=== PATIENT | female | born 1995 | race Caucasian/White ===

== ENCOUNTER → 2019-12-08 | Outpatient (CLI) | payer OTHER | LOC: M LABSMTC 14:08 | PROVIDERS: ATTEND Family Medicine | DX: Z20.828 Contact with and (suspected) exposure to other viral communicable diseases (principal) | CPT/HCPCS: C9803; U0003 ==

== ENCOUNTER → 2020-05-17 | Outpatient (CLI) | payer OTHER ==
--- NOTE | 2020-05-17 14:48 | REP ---
INDICATION: EXACERBATION OF ASTHMA. COMPARISON: None TECHNIQUE: Upright PA and lateral chest. FINDINGS: There are no infiltrates or pleural effusions. There are no masses or nodules. There is no pneumothorax. The lung dimas are clear, however, appear hyperinflated. Cardiac size is normal. There are postsurgical changes in the mediastinum. There appears to be an endovascular stent, likely in the pulmonary artery. There are other postsurgical changes in the mediastinum of uncertain significance. There are Castaneda rods in the thoracic and lumbar spine. IMPRESSION: There are no acute cardiopulmonary findings. Lung dimas appear hyperinflated. Postsurgical changes in the mediastinum. Castaneda rods. <Electronically signed by Pollo Suh > 05/17/20 1154
== END ==
LOC: M WUC 14:29
PROVIDERS: ATTEND Nurse Practitioner Family
DX: J45.901 Unspecified asthma with (acute) exacerbation (principal); Z20.822 Contact with and (suspected) exposure to COVID-19
CPT/HCPCS: 71046; 82726; G0463; U0003

== ENCOUNTER → 2020-08-03 | Outpatient (CLI) | payer OTHER ==
[2020-08-03 17:10] LABS: FREE T4 1.11 NG/DL (0.76-1.46); THYROID STIMULATING HORMONE 0.842 uIU/ML (0.358-3.740)
== END ==
LOC: M WUC 10:55
PROVIDERS: ATTEND Nurse Practitioner Family
DX: D82.1 Di George's syndrome (principal)

== ENCOUNTER → 2020-11-24 | Outpatient (CLI) | payer OTHER | LOC: M LABSMTC 10:55 | PROVIDERS: ATTEND Family Medicine | DX: Z11.52 Encounter for screening for COVID-19 (principal) | CPT/HCPCS: C9803; U0003 ==

== ENCOUNTER 2020-12-27 09:25 | Emergency (ER) | payer OTHER ==
[~2020-12-27] VITALS: Ht 154.9 cm; Wt 75.8 kg
--- OUTSIDE RECORDS SUMMARY | 2020-12-27 09:33 | CCD ---
Author Author [facility] Organization [facility] Address Unknown Phone Unavailable Care Team Providers Care Handyman Name Role Phone Jorge, Joselin Unavailable PROBLEMS Type Condition ICD9-CM Code GGE31-MP Code Onset Dates Condition S tatus W/U Status Risk SNOMED Code Notes Problem Non-seasonal allergic rhinitis, unspecified trigger J30.89 Active confirmed 52211957 Problem Slow transit constipation K59.01 Active confirmed 83679010 Problem PMS (premenstrual syndrome) N94.3 Active confirmed 17953284 Problem Exacerbation of asthma, unsp ecified asthma severity, unspecified whether persistent J45.901 Active confirmed 498427927 Problem 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 20 Active confirmed 087724299 Problem Vitamin D insufficiency E55.9 Active confirmed 27977767 Problem Seasonal allergies J30.2 Active confirmed 4 29948462 Problem S/P pulmonary valve replacement Z95.2 Active confirmed [id number] ALLERGIES No Known Allergies ENCOUNTERS from 1996 to 2020-10-06 Encounter Location Date Provider Diagnosis [place] [id number] [facility] [phone] [place] [address] Sep, Joselin Patel Slow transit constipation K5 9.01 IMMUNIZATIONS Vaccine Route Administration Date Status Influenza 18 yrs & older Flublok IM Intramuscular Dec 23, 2019 Administered SOCIAL HISTORY Tobacco Use: Social History Observation Description Date Details (start date - stop date) Never Smoker Sex Assigned At : Social History Observation Description Sex Assigned At Unknown Education: Question Answer Notes Level of Education: Finished High School Audit Question Answer Notes Total Score: 0 Interpretation: Alcohol Education Language: Question Answer Notes Languages spoken: Solomon Islander Hoahaoism: Question Answer Notes Hoahaoism 08 Baptism Sexual Hx: Question Answer Notes Had sex in the last 12 months (vaginal, oral, or anal)? No Have you ever had an STD? No Drug and Alcohol Question Answer Notes Total Score: 0 Interpretation: No problems reported Alcohol Screening: Question Answer Notes Did you have a drink containing alcohol in the past year? No Points 0 Interpretation Negative BMI Care Goal Follow-Up Question Answer Notes Above Normal BMI Follow-Up Dietary management educatio n, guidance, and counseling, Dietary needs education Tobacco Use: Question Answer Notes Are you a: never smoker REASON FOR REFERRAL No Information VITAL SIGNS No information MEDICATIONS Medication SIG (Take, Route, Frequency, Duration) Notes Start Da te End Date Status Align Prebiotic-Probiotic 5-1.25 MG-GM 1 cap Orally Daily for 90 day( s) Active Xopenex HFA 45 MCG/ACT 1 puff as needed Inhalation every 4 hrs f or 30 Days May, Active Aspir-Low 81 MG 1 tablet Orally Once a day for 90 day(s) Active Omeprazole 20 MG 1 capsule 30 minutes before morning meal Orally Once a day for 8-8 weeks, then prn for 90 day(s) May, Active Clobetasol Propionate 0.05 % 1 application to hands Ex ternally Twice a day for 14 days Feb, Active Fexofenadine HCl 180 MG 1 tablet as needed Orally Once a day for 90 day(s) Active Claritin 10 MG 1 tablet Orally Once a day for 90 day(s) Not-Taking Vitamin D3 1000 UNIT 1 capsule Orally Once a day for 90 day(s) Active Pulse Oximeter - as directed prn during asthma exacerbati on for 99 days J45.20, J45.901 May, Active Lasix 20 MG 1 tablet Orally Once a day for 90 day(s) cardiology Active Levalbuterol HCl 1.25 MG/3ML 3 ml Inhalation every 8 hrs for 90 day(s) Nov, Active Sodium Chloride 0.9 % 4 ml Inhalation Twice a day for 90 day(s) May, Active predniSONE 20 MG 1 tablet Orally Once a day for 5 day(s) Active Flovent HFA 110 MCG/ACT 2 puff Inhalation Twice a day for 90 day(s) Active Flonase Allergy Relief 50 MCG/ACT 1 spray in each nost ril Nasally bid for 90 day(s) June, Active PROCEDURES No Information RESULTS No Results REASON FOR VISIT New Refill Request MEDICAL (GENERAL) HISTORY Type Description Date Medical History seasonal allergies Medical History mild asthma Medical History vitamin D def Medical History constipation Surgical History valve replacement Surgical History eye muscle surgery Surgical History scoliosis rods Hospitalization History above Goals Section No Information Health Concerns No Information MEDICAL EQUIPMENT No Information MENTAL STATUS No Information FUNCTIONAL STATUS No Information ASSESSMENTS Encounter Date Diagnosis Assessment Notes Treatment Notes Treatm ent Clinical Notes Sep, Slow transit constipation (ICD-10 - K59.01) PLAN OF TREATMENT Medication Medication Name Sig Start Date Stop Date Omeprazole 20 MG 1 capsule 30 minutes before morning meal Orally Once a day for 8-8 weeks, then prn for 90 day(s) May, predniSONE 20 MG 1 tablet Orally Once a day for 5 day(s) Flovent HFA 110 MCG/ACT 2 puff Inhalation Twice a day for 90 day (s) Clobetasol Propionate 0.05 % 1 application to hands Ex ternally Twice a day for 14 days Feb, Align Prebiotic-Probiotic 5-1.25 MG-GM 1 cap Orally Daily for 90 day(s) Insurance Providers Payer Name Payer Address Payer Phone Insured Name Patient Relati onship to Insured Coverage Start Date Coverage End Date [facility] [address] [place] [id number] OVIDIO CONTRERAS
--- OUTSIDE RECORDS SUMMARY | 2020-12-27 09:33 | CCD ---
Author Author [facility] Organization [facility] Address Unknown Phone Unavailable Care Team Providers Care Cooker Soda Name Role Phone Jorge Joselin Unavailable PROBLEMS Type Condition ICD9-CM Code WTH54-SJ Code Onset Dates Condition S tatus W/U Status Risk SNOMED Code Notes Problem Non-seasonal allergic rhinitis, unspecified trigger J30.89 Active confirmed 95772350 Problem Slow transit constipation K59.01 Active confirmed 14415647 Problem PMS (premenstrual syndrome) N94.3 Active confirmed 47519991 Problem Exacerbation of asthma, unsp ecified asthma severity, unspecified whether persistent J45.901 Active confirmed 887763668 Problem 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 20 Active confirmed 072710594 Problem Vitamin D insufficiency E55.9 Active confirmed 84294736 Problem Seasonal allergies J30.2 Active confirmed 4 63571491 Problem S/P pulmonary valve replacement Z95.2 Active confirmed 172308427028893 ALLERGIES No Known Allergies ENCOUNTERS from 1996 to 2020-10-12 Encounter Location Date Provider Diagnosis [facility] [address] [facility] [phone] [place] [address] Sep, Joselin Patel Dyspepsia R10.13 IMMUNIZATIONS Vaccine Route Administration Date Status Influenza [...] Education Language: Question Answer Notes Languages spoken: Slovenian Spiritism: Question Answer Notes Spiritism 08 Yarsanism Sexual Hx: Question Answer Notes Had sex [...] Notes Start Da te End Date Status Omeprazole 40 MG 1 capsule 30 minutes before morning meal Orally Once a day for 8-8 weeks, then prn for 90 days dosage increase May, Active Vitamin D3 1000 UNIT 1 capsule Orally Once a day for 90 day(s) Active Pulse Oximeter - as directed prn during asthma exacerbati on for 99 days J45.20, J45.901 May, Active Clobetasol Propionate 0.05 % 1 application to hands Ex ternally Twice a day for 14 days Feb, Active Aspir-Low 81 MG 1 tablet Orally Once a day for 90 day(s) Active Fexofenadine HCl 180 MG 1 tablet as needed Orally Once a day for 90 day(s) Active Sodium Chloride 0.9 % 4 ml Inhalation Twice a day for 90 day(s) May, Active Claritin 10 MG 1 tablet Orally Once a day for 90 day(s) Not-Taking Flovent HFA 110 MCG/ACT 2 puff Inhalation Twice a day for 90 day(s) Active Flonase Allergy Relief 50 MCG/ACT 1 spray in each nost ril Nasally bid for 90 day(s) June, Active Xopenex HFA 45 MCG/ACT 1 puff as needed Inhalation every 4 hrs f or 30 Days May, Active Lasix 20 MG 1 tablet Orally Once a day for 90 day(s) cardiology Active predniSONE 20 MG 1 tablet Orally Once a day for 5 day(s) Active Levalbuterol HCl 1.25 MG/3ML 3 ml Inhalation every 8 hrs for 90 day(s) Nov, Active Align Prebiotic-Probiotic 5-1.25 MG-GM 1 cap Orally Daily for 90 day( s) Active PROCEDURES No Information RESULTS No Results REASON FOR VISIT Concepcion Reflux MEDICAL (GENERAL) HISTORY Type Description Date Medical [...] Treatment Notes Treatm ent Clinical Notes Sep, Dyspepsia (ICD-10 - R10.13) PLAN OF TREATMENT Medication Medication Name Sig Start Date Stop Date Clobetasol Propionate 0.05 % 1 application to hands Ex ternally Twice a day for 14 days Feb, predniSONE 20 MG 1 tablet Orally Once a day for 5 day(s) Align Prebiotic-Probiotic 5-1.25 MG-GM 1 cap Orally Daily for 90 day(s) Flovent HFA 110 MCG/ACT 2 puff Inhalation Twice a day for 90 day (s) Omeprazole 40 MG 1 capsule 30 minutes before morning meal Orally Once a day for 8-8 weeks, then prn for 90 days May, Insurance Providers Payer Name Payer Address Payer Phone Insured Name Patient Relati onship to Insured Coverage Start Date Coverage End Date [facility] [address] [place] [id number] OVIDIO CONTRERAS
--- OUTSIDE RECORDS SUMMARY | 2020-12-27 09:33 | CCD ---
Author Author [facility] Organization [facility] Address Unknown Phone Unavailable Care Team Providers Care Refrigerated National Truck Driver Name Role Phone Jorge Joselin Unavailable PROBLEMS Type Condition ICD9-CM Code KNB34-KY Code Onset Dates Condition S tatus W/U Status Risk SNOMED Code Notes Problem Non-seasonal allergic rhinitis, unspecified trigger J30.89 Active confirmed 27252007 Problem Slow transit constipation K59.01 Active confirmed 76176791 Problem PMS (premenstrual syndrome) N94.3 Active confirmed 21679439 Problem Exacerbation of asthma, unsp ecified asthma severity, unspecified whether persistent J45.901 Active confirmed 679022958 Problem 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 20 Active confirmed 241307644 Problem Vitamin D insufficiency E55.9 Active confirmed 30342471 Problem Seasonal allergies J30.2 Active confirmed 4 08124075 Problem S/P pulmonary valve replacement Z95.2 Active confirmed 491598357111970 ALLERGIES No Known Allergies ENCOUNTERS from 1996 to 2020-10-20 Encounter Location Date Provider Diagnosis [facility] [address] [facility] [phone] [place] [address] Oct, Joselin Patel S/P pulmonary valve replacem ent Z95.2 and DiGeorge syndrome D82.1 IMMUNIZATIONS Vaccine Route Administration Date Status Influenza [...] Education Language: Question Answer Notes Languages spoken: Togolese Gnosticist: Question Answer Notes Gnosticist 08 Caodaism Sexual Hx: Question Answer Notes Had sex [...] you a: never smoker REASON FOR REFERRAL from 1996 to 2020-10-20 Reason 25yo female w/ hx valve repl acement, recent onset chest pain, office visit/EKG pending, will need to establish w/ bakery clerk in area|referral to Dr. Jones per request Diagnosis 1 S/P pulmonary valve replacem ent (Z95.2) Referral Organization [facility] Referring Provider First Name Joselin Referring Provider Last Name Jorge Referring Provider Specialty Family Medicine Referred Provider Specialty Cardiology Referral Priority Routine VITAL SIGNS No information MEDICATIONS Medication SIG [...] for 99 days J45.20, J45.901 May, Active Fexofenadine HCl 180 MG 1 tablet as needed Orally Once a day for 90 day(s) Active Clobetasol Propionate 0.05 % 1 application to hands Ex ternally Twice a day for 14 days Feb, Active Aspir-Low 81 MG 1 tablet Orally Once a day for 90 day(s) Active Claritin 10 MG 1 tablet Orally Once a day for 90 day(s) Not-Taking Lasix 20 MG 1 tablet Orally Once a day for 90 day(s) cardiology Active Flovent HFA 110 MCG/ACT 2 puff Inhalation Twice a day for 90 day(s) Active Flonase Allergy Relief 50 MCG/ACT 1 spray in each nost ril Nasally bid for 90 day(s) June, Active Xopenex HFA 45 MCG/ACT 1 puff as needed Inhalation every 4 hrs f or 30 Days May, Active Sodium Chloride 0.9 % 4 ml [...] Information RESULTS No Results REASON FOR VISIT Referral MEDICAL (GENERAL) HISTORY Type Description Date Medical [...] Notes Treatment Notes Treatm ent Clinical Notes Oct, S/P pulmonary valve replacement (ICD-10 - Z95.2) Oct, DiGeorge syndrome (ICD-10 - D82.1) PLAN OF TREATMENT Medication Medication Name Sig Start Date Stop Date Aspir-Low 81 MG 1 tablet Orally Once a day for 90 day(s) predniSONE 20 MG 1 tablet Orally Once a day for 5 day(s) Flovent HFA 110 MCG/ACT 2 puff Inhalation Twice a day for 90 day (s) Clobetasol Propionate 0.05 % 1 application to hands Ex ternally Twice a day for 14 days Feb, Align Prebiotic-Probiotic 5-1.25 MG-GM 1 cap Orally Daily for 90 day(s) Lasix 20 MG 1 tablet Orally Once a day for 90 day(s) Omeprazole 40 MG 1 capsule 30 minutes before morning meal Orally Once a day for 8-8 weeks, then prn for 90 days May, Referrals Referral Date Details 25yo female w/ hx valve repl acement, recent onset chest pain, office visit/EKG pending, will need to establish w/ bakery clerk in area|referral to Dr. Jones per request Next Appt Details Provider Name:Joselin Patel, 02:00:00 PM, [address] [facility], , [place], [address], Insurance Providers Payer Name Payer Address Payer Phone Insured Name Patient Relati onship to Insured Coverage Start Date Coverage End Date [facility] [address] [facility] [id number] OVIDIO CONTRERAS"
--- OUTSIDE RECORDS SUMMARY | 2020-12-27 09:33 | CCD ---
Author Author [facility] Organization [facility] Address Unknown Phone Unavailable Care Team Providers Care Casualty Insurance Claim Adjuster Name Role Phone Jorge Joselin Unavailable PROBLEMS Type Condition ICD9-CM Code LHV19-ZB Code Onset Dates Condition S tatus W/U Status Risk SNOMED Code Notes Problem Non-seasonal allergic rhinitis, unspecified trigger J30.89 Active confirmed 91521902 Problem Slow transit constipation K59.01 Active confirmed 18608223 Problem PMS (premenstrual syndrome) N94.3 Active confirmed 39258568 Problem Exacerbation of asthma, unsp ecified asthma severity, unspecified whether persistent J45.901 Active confirmed 103435655 Problem 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 20 Active confirmed 715310260 Problem Vitamin D insufficiency E55.9 Active confirmed 98053265 Problem Seasonal allergies J30.2 Active confirmed 4 03378884 Problem S/P pulmonary valve replacement Z95.2 Active confirmed 592306671364325 ALLERGIES No Known Allergies ENCOUNTERS from 1996 to 2020-10-01 Encounter Location Date Provider Diagnosis [facility] [address] [facility] [phone] [place] [address] Sep, Joselin Patel IMMUNIZATIONS Vaccine Route Administration Date Status Influenza [...] Education Language: Question Answer Notes Languages spoken: New Zealander Temple: Question Answer Notes Temple 08 Muslim Sexual Hx: Question Answer Notes Had sex [...] Notes Start Da te End Date Status Flonase Allergy Relief 50 MCG/ACT 1 spray [...] Once a day for 90 day(s) Active Align Prebiotic-Probiotic 5-1.25 MG-GM 1 cap Orally Daily for 90 day( s) Active Vitamin D3 1000 UNIT 1 capsule Orally Once a day for 90 day(s) Active Pulse Oximeter - as directed prn during asthma exacerbati on for 99 days J45.20, J45.901 May, Active Sodium Chloride 0.9 % 4 ml Inhalation Twice a day for 90 day(s) May, Active Levalbuterol HCl 1.25 MG/3ML 3 ml Inhalation every 8 hrs for 90 day(s) Nov, Active Claritin 10 MG 1 tablet Orally Once a day for 90 day(s) Not-Taking predniSONE 20 MG 1 tablet Orally Once a day for 5 day(s) Active Flovent HFA 110 MCG/ACT 2 puff Inhalation Twice a day for 90 day(s) Active Lasix 20 MG 1 tablet Orally Once a day for 90 day(s) cardiology Active PROCEDURES No Information RESULTS No Results REASON FOR VISIT Update Demographics - Personal Info MEDICAL (GENERAL) HISTORY Type Description Date Medical History seasonal allergies Medical History mild asthma Medical History vitamin D def Medical History constipation Surgical History valve replacement Surgical History eye muscle surgery Surgical History scoliosis rods Hospitalization History above Goals Section No Information Health Concerns No Information MEDICAL EQUIPMENT No Information MENTAL STATUS No Information FUNCTIONAL STATUS No Information ASSESSMENTS No Information PLAN OF TREATMENT Medication Medication Name Sig [...] Twice a day for 14 days Feb, Insurance Providers Payer Name Payer Address Payer Phone Insured Name Patient Relati onship to Insured Coverage Start Date Coverage End Date [facility] [address] [facility] [id number] OVIDIO CONTRERAS
--- OUTSIDE RECORDS SUMMARY | 2020-12-27 09:33 | CCD ---
Author Author [facility] Organization [facility] Address Unknown Phone Unavailable Care Team Providers Care Orthopedic Podiatrist Name Role Phone Jorge Joselin Unavailable PROBLEMS Type Condition ICD9-CM Code WXA83-TE Code Onset Dates Condition S tatus W/U Status Risk SNOMED Code Notes Problem Non-seasonal allergic rhinitis, unspecified trigger J30.89 Active confirmed 36670056 Problem Slow transit constipation K59.01 Active confirmed 66271878 Problem PMS (premenstrual syndrome) N94.3 Active confirmed 48263852 Problem Exacerbation of asthma, unsp ecified asthma severity, unspecified whether persistent J45.901 Active confirmed 660951261 Problem 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 20 Active confirmed 967279849 Problem Vitamin D insufficiency E55.9 Active confirmed 88558218 Problem Seasonal allergies J30.2 Active confirmed 4 27076626 Problem S/P pulmonary valve replacement Z95.2 Active confirmed 465253811223043 ALLERGIES No Known Allergies ENCOUNTERS from 1996 to 2020-10-12 Encounter Location Date Provider Diagnosis [facility] [address] [facility] [phone] [place] [address] Sep, Joselin Patel IMMUNIZATIONS Vaccine Route Administration [...] Education Language: Question Answer Notes Languages spoken: Djiboutian Hoahaoism: Question Answer Notes Hoahaoism 08 Evangelical Sexual Hx: Question Answer Notes Had sex [...] Information RESULTS No Results REASON FOR VISIT Re:RE:Concepcion Reflux MEDICAL (GENERAL) HISTORY Type Description Date [...] Insured Coverage Start Date Coverage End Date [facility] [address] [place] [id number] OVIDIO CONTRERAS
--- OUTSIDE RECORDS SUMMARY | 2020-12-27 09:33 | CCD ---
Author Author [facility] Organization [facility] Address Unknown Phone Unavailable Care Team Providers Care Studio Model Name Role Phone Jorge Joselin Unavailable PROBLEMS Type Condition ICD9-CM Code DBT64-WC Code Onset Dates Condition S tatus W/U Status Risk SNOMED Code Notes Problem Non-seasonal allergic rhinitis, unspecified trigger J30.89 Active confirmed 16406952 Problem Slow transit constipation K59.01 Active confirmed 33346241 Problem PMS (premenstrual syndrome) N94.3 Active confirmed 24029447 Problem Exacerbation of asthma, unsp ecified asthma severity, unspecified whether persistent J45.901 Active confirmed 508420542 Problem 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 20 Active confirmed 715935866 Problem Vitamin D insufficiency E55.9 Active confirmed 04968412 Problem Seasonal allergies J30.2 Active confirmed 4 09686042 Problem S/P pulmonary valve replacement Z95.2 Active confirmed 268611541979120 ALLERGIES No Known Allergies ENCOUNTERS from 1996 to 2020-10-20 Encounter Location Date Provider Diagnosis [facility] [address] [facility] [phone] [place] [address] Oct, Joselin Patel IMMUNIZATIONS Vaccine Route Administration Date [...] Education Language: Question Answer Notes Languages spoken: Mauritanian Religious: Question Answer Notes Religious 08 Buddhist Sexual Hx: Question Answer Notes Had sex [...] Information RESULTS No Results REASON FOR VISIT Refferal * MEDICAL (GENERAL) HISTORY Type Description Date Medical [...] weeks, then prn for 90 days May, Next Appt Details Provider Name:Joselinlesli Patel, 02:00:00 PM, [address] [facility], , [place], [address], Insurance Providers Payer Name Payer Address Payer Phone Insured Name Patient Relati onship to Insured Coverage Start Date Coverage End Date [facility] INSURANCE [address] [place] [id number] OVIDIO CONTRERAS
--- OUTSIDE RECORDS SUMMARY | 2020-12-27 09:33 | CCD ---
Author Author [facility] Address Unknown Phone Unavailable Support Name Relationship Address Phone DISABLED Next Of Kin Unknown Unavailable SALAZAR CONTRERAS Next Of Kin [address] [place] [address] [address] [place] [address] CESAR CONTRERAS [address] [place] [address] 1 [address] [place] [address] Unavailable Re-disclosure Warning The records that you are about to access may contain information from federally-assisted alcohol or drug abuse programs. If such information is present, then the following federally mandated warning applies: This information has been disclosed to you from records protected by federal confidentiality rules (42 CFR part 2). The federal rules prohibit you from making any further disclosure of this information unless further disclosure is expressly permitted by the written consent of the person to whom it pertains or as otherwise permitted by 42 CFR part 2. A general authorization for the release of medical or other information is NOT sufficient for this purpose. The Federal rules restrict any use of the information to criminally investigate or prosecute any alcohol or drug abuse patient.The records that you are about to access may contain highly sensitive health information, the redisclosure of which is protected by Article 27-F of the [facility] Public Health law. If you continue you may have access to information: Regarding HIV / AIDS; Provided by facilities licensed or operated by the [facility] Office of Mental Health; or Provided by the [facility] Office for People With Developmental Disabilities. If such information is present, then the following [facility] mandated warning applies: This information has been disclosed to you from confidential records which are protected by state law. State law prohibits you from making any further disclosure of this information without the specific written consent of the person to whom it pertains, or as otherwise permitted by law. Any unauthorized further disclosure in violation of state law may result in a fine or group home sentence or both. A general authorization for the release of medical or other information is NOT sufficient authorization for further disc losure. Encounters Encounter Providers Location Date Indications Data Source(s ) Unknown [address] [facility] [address] 11/12/2020 12:00:00 AM EDT eCW1 ([facility]) [place] [address] [facility] [address] 11/04/2020 12:00:00 AM EDT eCW1 ([facility]) Unknown [address] [facility] [address] 10/19/2020 12:00:00 AM EDT eCW1 ([facility]) Unknown [address] [facility] [address] 10/14/2020 12:00:00 AM EDT eCW1 ([facility]) [place] [address] [facility] [address] 10/13/2020 12:00:00 AM EDT eCW1 ([facility]) Unknown [address] [facility] [address] 10/13/2020 12:00:00 AM EDT eCW1 ([facility]) [place] [address] [facility] [address] 10/12/2020 12:00:00 AM EDT eCW1 ([facility]) Unknown [address] [facility] [address] 10/08/2020 12:00:00 AM EDT eCW1 ([facility]) Unknown [address] [facility] [address] 10/06/2020 12:00:00 AM EDT eCW1 ([facility]) [place] [address] [facility] [address] 10/01/2020 12:00:00 AM EDT eCW1 ([facility]) Unknown [address] [facility] [address] 09/22/2020 12:00:00 AM EDT eCW1 ([facility]) Unknown [address] [facility] [address] 09/20/2020 12:00:00 AM EDT eCW1 ([facility]) Unknown [address] [facility] [address] 08/02/2020 12:00:00 AM EDT eCW1 ([facility]) Unknown [address] [facility] [address] 07/02/2020 12:00:00 AM EDT eCW1 ([facility]) Outpatient [address] [facility] [address] 05/21/2020 12:00:00 AM EDT eCW1 ([facility]) Unknown [address] [facility] [address] 05/19/2020 12:00:00 AM EDT eCW1 ([facility]) Unknown [address] [facility] [address] 05/18/2020 12:00:00 AM EDT eCW1 ([facility]) Unknown [address] [facility] [address] 05/18/2020 12:00:00 AM EDT eCW1 ([facility]) Unknown [address] [facility] [address] 05/18/2020 12:00:00 AM EDT eCW1 ([facility]) Unknown [address] [facility] [address] 05/17/2020 12:00:00 AM EDT eCW1 ([facility]) Outpatient [address] [facility] [address] 05/17/2020 12:00:00 AM EDT eCW1 ([facility]) Unknown [address] [facility] [address] 05/17/2020 12:00:00 AM EDT eCW1 ([facility]) Unknown [address] [facility] [address] 05/13/2020 12:00:00 AM EDT [facility] [place] [address] [facility] [address] 05/11/2020 12:00:00 AM EDT [facility] [place] [address] [facility] [address] 02/25/2020 12:00:00 AM EST [facility] [place] [address] [facility] [address] 01/23/2020 12:00:00 AM EST eCW1 ([facility]) Unknown [address] [facility] [address] 01/20/2020 12:00:00 AM EST eCW1 ([facility]) Unknown [address] [facility] [address] 01/06/2020 12:00:00 AM EST eCW1 ([facility]) Unknown [address] [facility] [address] 01/01/2020 12:00:00 AM EST eCW1 ([facility]) Outpatient [address] [facility] [address] 12/23/2019 12:00:00 AM EST eCW1 ([facility]) Unknown [address] [facility] [address] 12/02/2019 12:00:00 AM EDT eCW1 ([facility]) Immunizations Vaccine Date Status Description Data Source(s) influenza, recombinant, quadrIvalent,injectable, prese rvative free 12/23/2019 10:17:00 AM EST completed eCW1 ([facility]) influenza, recombinant, quadrIvalent,injectable, prese rvative free 12/23/2019 10:17:00 AM EST completed eCW1 ([facility]) influenza, recombinant, quadrIvalent,injectable, prese rvative free 12/23/2019 10:17:00 AM EST completed eCW1 ([facility]) influenza, recombinant, quadrIvalent,injectable, prese rvative free 12/23/2019 10:17:00 AM EST completed eCW1 ([facility]) influenza, recombinant, quadrIvalent,injectable, prese rvative free 12/23/2019 10:17:00 AM EST completed eCW1 ([facility]) influenza, recombinant, quadrIvalent,injectable, prese rvative free 12/23/2019 10:17:00 AM EST completed eCW1 ([facility]) influenza, recombinant, quadrIvalent,injectable, prese rvative free 12/23/2019 10:17:00 AM EST completed eCW1 ([facility]) influenza, recombinant, quadrIvalent,injectable, prese rvative free 12/23/2019 10:17:00 AM EST completed eCW1 ([facility]) influenza, recombinant, quadrIvalent,injectable, prese rvative free 12/23/2019 10:17:00 AM EST completed eCW1 ([facility]) influenza, recombinant, quadrIvalent,injectable, prese rvative free 12/23/2019 10:17:00 AM EST completed eCW1 ([facility]) influenza, recombinant, quadrIvalent,injectable, prese rvative free 12/23/2019 10:17:00 AM EST completed eCW1 ([facility]) influenza, recombinant, quadrIvalent,injectable, prese rvative free 12/23/2019 10:17:00 AM EST completed eCW1 ([facility]) influenza, recombinant, quadrIvalent,injectable, prese rvative free 12/23/2019 10:17:00 AM EST completed eCW1 ([facility]) influenza, recombinant, quadrIvalent,injectable, prese rvative free 12/23/2019 10:17:00 AM EST completed eCW1 ([facility]) influenza, recombinant, quadrIvalent,injectable, prese rvative free 12/23/2019 10:17:00 AM EST completed eCW1 ([facility]) influenza, recombinant, quadrIvalent,injectable, prese rvative free 12/23/2019 10:17:00 AM EST completed eCW1 ([facility]) influenza, recombinant, quadrIvalent,injectable, prese rvative free 12/23/2019 10:17:00 AM EST completed eCW1 ([facility]) influenza, recombinant, quadrIvalent,injectable, prese rvative free 12/23/2019 10:17:00 AM EST completed eCW1 ([facility]) influenza, recombinant, quadrIvalent,injectable, prese rvative free 12/23/2019 10:17:00 AM EST completed eCW1 ([facility]) influenza, recombinant, quadrIvalent,injectable, prese rvative free 12/23/2019 10:17:00 AM EST completed eCW1 ([facility]) influenza, recombinant, quadrIvalent,injectable, prese rvative free 12/23/2019 10:17:00 AM EST completed eCW1 ([facility]) influenza, recombinant, quadrIvalent,injectable, prese rvative free 12/23/2019 10:17:00 AM EST completed eCW1 ([facility]) influenza, recombinant, quadrIvalent,injectable, prese rvative free 12/23/2019 10:17:00 AM EST completed eCW1 ([facility]) influenza, recombinant, quadrIvalent,injectable, prese rvative free 12/23/2019 10:17:00 AM EST completed eCW1 ([facility]) influenza, recombinant, quadrIvalent,injectable, prese rvative free 12/23/2019 10:17:00 AM EST completed eCW1 ([facility]) influenza, recombinant, quadrIvalent,injectable, prese rvative free 12/23/2019 10:17:00 AM EST completed eCW1 ([facility]) influenza, recombinant, quadrIvalent,injectable, prese rvative free 12/23/2019 10:17:00 AM EST completed eCW1 ([facility]) influenza, recombinant, quadrIvalent,injectable, prese rvative free 12/23/2019 10:17:00 AM EST completed eCW1 ([facility]) influenza, recombinant, quadrIvalent,injectable, prese rvative free 12/23/2019 10:17:00 AM EST completed eCW1 ([facility]) influenza, recombinant, quadrIvalent,injectable, prese rvative free 12/23/2019 10:17:00 AM EST completed eCW1 ([facility]) Medications Medication Brand Name Start Date Product Form Dose Route Admi nistrative Instructions Pharmacy Instructions Status Indications Reaction Description Data Source(s) Omeprazole 40 MG Delayed Release Oral Capsule Omeprazole 40 MG 05/21/2020 12:00:00 AM EDT active Omeprazo le 40 MG eCW1 ([facility]) Omeprazole 20 MG Delayed Release Oral Capsule Omeprazole 20 MG 05/21/2020 12:00:00 AM EDT active Omeprazo le 20 MG eCW1 ([facility]) Omeprazole 40 MG Delayed Release Oral Capsule Omeprazole 40 MG 05/21/2020 12:00:00 AM EDT active Omeprazo le 40 MG eCW1 ([facility]) Omeprazole 40 MG Delayed Release Oral Capsule Omeprazole 40 MG 05/21/2020 12:00:00 AM EDT active Omeprazo le 40 MG eCW1 ([facility]) Omeprazole 40 MG Delayed Release Oral Capsule Omeprazole 40 MG 05/21/2020 12:00:00 AM EDT active Omeprazo le 40 MG eCW1 ([facility]) Omeprazole 40 MG Delayed Release Oral Capsule Omeprazole 40 MG 05/21/2020 12:00:00 AM EDT active Omeprazo le 40 MG eCW1 ([facility]) Omeprazole 40 MG Delayed Release Oral Capsule Omeprazole 40 MG 05/21/2020 12:00:00 AM EDT active Omeprazo le 40 MG eCW1 ([facility]) Omeprazole 20 MG Delayed Release Oral Capsule Omeprazole 20 MG 05/21/2020 12:00:00 AM EDT active Omeprazo le 20 MG eCW1 ([facility]) Omeprazole 20 MG Delayed Release Oral Capsule Omeprazole 20 MG 05/21/2020 12:00:00 AM EDT active Omeprazo le 20 MG eCW1 ([facility]) Omeprazole 20 MG Delayed Release Oral Capsule Omeprazole 20 MG 05/21/2020 12:00:00 AM EDT active Omeprazo le 20 MG eCW1 ([facility]) Omeprazole 40 MG Delayed Release Oral Capsule Omeprazole 40 MG 05/21/2020 12:00:00 AM EDT active Omeprazo le 40 MG eCW1 ([facility]) Omeprazole 20 MG Delayed Release Oral Capsule Omeprazole 20 MG 05/21/2020 12:00:00 AM EDT active Omeprazo le 20 MG eCW1 ([facility]) Omeprazole 20 MG Delayed Release Oral Capsule Omeprazole 20 MG 05/21/2020 12:00:00 AM EDT active Omeprazo le 20 MG eCW1 ([facility]) Omeprazole 40 MG Delayed Release Oral Capsule Omeprazole 40 MG 05/21/2020 12:00:00 AM EDT active Omeprazo le 40 MG eCW1 ([facility]) Omeprazole 20 MG Delayed Release Oral Capsule Omeprazole 20 MG 05/21/2020 12:00:00 AM EDT active Omeprazo le 20 MG eCW1 ([facility]) Pulse Oximeter - Pulse Oximeter - 05/20/2020 12:00:00 AM EDT active Pulse Oximeter - eCW1 ([facility]) Pulse Oximeter - Pulse Oximeter - 05/20/2020 12:00:00 AM EDT active Pulse Oximeter - eCW1 ([facility]) Pulse Oximeter - Pulse Oximeter - 05/20/2020 12:00:00 AM EDT active Pulse Oximeter - eCW1 ([facility]) Pulse Oximeter - Pulse Oximeter - 05/20/2020 12:00:00 AM EDT active Pulse Oximeter - eCW1 ([facility]) Pulse Oximeter - Pulse Oximeter - 05/20/2020 12:00:00 AM EDT active Pulse Oximeter - eCW1 ([facility]) Pulse Oximeter - Pulse Oximeter - 05/20/2020 12:00:00 AM EDT active Pulse Oximeter - eCW1 ([facility]) Pulse Oximeter - Pulse Oximeter - 05/20/2020 12:00:00 AM EDT active Pulse Oximeter - eCW1 ([facility]) Pulse Oximeter - Pulse Oximeter - 05/20/2020 12:00:00 AM EDT active Pulse Oximeter - eCW1 ([facility]) Pulse Oximeter - Pulse Oximeter - 05/20/2020 12:00:00 AM EDT active Pulse Oximeter - eCW1 ([facility]) Pulse Oximeter - Pulse Oximeter - 05/20/2020 12:00:00 AM EDT active Pulse Oximeter - eCW1 ([facility]) Pulse Oximeter - Pulse Oximeter - 05/20/2020 12:00:00 AM EDT active Pulse Oximeter - eCW1 ([facility]) Pulse Oximeter - Pulse Oximeter - 05/20/2020 12:00:00 AM EDT active Pulse Oximeter - eCW1 ([facility]) Pulse Oximeter - Pulse Oximeter - 05/20/2020 12:00:00 AM EDT active Pulse Oximeter - eCW1 ([facility]) Pulse Oximeter - Pulse Oximeter - 05/20/2020 12:00:00 AM EDT active Pulse Oximeter - eCW1 ([facility]) Pulse Oximeter - Pulse Oximeter - 05/20/2020 12:00:00 AM EDT active Pulse Oximeter - eCW1 ([facility]) Pulse Oximeter - Pulse Oximeter - 05/20/2020 12:00:00 AM EDT active Pulse Oximeter - eCW1 ([facility]) Pulse Oximeter - Pulse Oximeter - 05/20/2020 12:00:00 AM EDT active Pulse Oximeter - eCW1 ([facility]) Sodium Chloride 0.154 MEQ/ML Inhalant Solution Sodium Chloride 0.9 % Sodium Chloride 0.9 % 05/18/2020 12:00:00 AM EDT 4.0 {ml} a ctive Sodium Chloride 0.9 % eCW1 ([facility]) Sodium Chloride 0.154 MEQ/ML Inhalant Solution Sodium Chloride 0.9 % Sodium Chloride 0.9 % 05/18/2020 12:00:00 AM EDT 4.0 {ml} a ctive Sodium Chloride 0.9 % eCW1 ([facility]) 200 ACTUAT Levalbuterol 0.045 MG/ACTUAT Metered Dose Inhaler [Xopenex] Xopenex HFA 45 MCG/ACT Xopenex HFA 45 MCG/ACT 05/18/2020 12:00:00 AM EDT 1.0 {puff_as_needed} active Xopenex HFA 45 MCG/ACT eCW1 ([facility]) 200 ACTUAT Levalbuterol 0.045 MG/ACTUAT Metered Dose Inhaler [Xopenex] Xopenex HFA 45 MCG/ACT Xopenex HFA 45 MCG/ACT 05/18/2020 12:00:00 AM EDT 1.0 {puff_as_needed} active Xopenex HFA 45 MCG/ACT eCW1 ([facility]) 200 ACTUAT Levalbuterol 0.045 MG/ACTUAT Metered Dose Inhaler [Xopenex] Xopenex HFA 45 MCG/ACT Xopenex HFA 45 MCG/ACT 05/18/2020 12:00:00 AM EDT 1.0 {puff_as_needed} active Xopenex HFA 45 MCG/ACT eCW1 ([facility]) 200 ACTUAT Levalbuterol 0.045 MG/ACTUAT Metered Dose Inhaler [Xopenex] Xopenex HFA 45 MCG/ACT Xopenex HFA 45 MCG/ACT 05/18/2020 12:00:00 AM EDT 1.0 {puff_as_needed} active Xopenex HFA 45 MCG/ACT eCW1 ([facility]) 200 ACTUAT Levalbuterol 0.045 MG/ACTUAT Metered Dose Inhaler [Xopenex] Xopenex HFA 45 MCG/ACT Xopenex HFA 45 MCG/ACT 05/18/2020 12:00:00 AM EDT 1.0 {puff_as_needed} active Xopenex HFA 45 MCG/ACT eCW1 ([facility]) Sodium Chloride 0.154 MEQ/ML Inhalant Solution Sodium Chloride 0.9 % Sodium Chloride 0.9 % 05/18/2020 12:00:00 AM EDT 4.0 {ml} a ctive Sodium Chloride 0.9 % eCW1 ([facility]) Sodium Chloride 0.154 MEQ/ML Inhalant Solution Sodium Chloride 0.9 % Sodium Chloride 0.9 % 05/18/2020 12:00:00 AM EDT 4.0 {ml} a ctive Sodium Chloride 0.9 % eCW1 ([facility]) Sodium Chloride 0.154 MEQ/ML Inhalant Solution Sodium Chloride 0.9 % Sodium Chloride 0.9 % 05/18/2020 12:00:00 AM EDT 4.0 {ml} a ctive Sodium Chloride 0.9 % eCW1 ([facility]) Sodium Chloride 0.154 MEQ/ML Inhalant Solution Sodium Chloride 0.9 % Sodium Chloride 0.9 % 05/18/2020 12:00:00 AM EDT 4.0 {ml} a ctive Sodium Chloride 0.9 % eCW1 ([facility]) Sodium Chloride 0.154 MEQ/ML Inhalant Solution Sodium Chloride 0.9 % Sodium Chloride 0.9 % 05/18/2020 12:00:00 AM EDT 4.0 {ml} a ctive Sodium Chloride 0.9 % eCW1 ([facility]) 200 ACTUAT Levalbuterol 0.045 MG/ACTUAT Metered Dose Inhaler [Xopenex] Xopenex HFA 45 MCG/ACT Xopenex HFA 45 MCG/ACT 05/18/2020 12:00:00 AM EDT 1.0 {puff_as_needed} active Xopenex HFA 45 MCG/ACT eCW1 ([facility]) Sodium Chloride 0.154 MEQ/ML Inhalant Solution Sodium Chloride 0.9 % Sodium Chloride 0.9 % 05/18/2020 12:00:00 AM EDT 4.0 {ml} a ctive Sodium Chloride 0.9 % eCW1 ([facility]) Sodium Chloride 0.154 MEQ/ML Inhalant Solution Sodium Chloride 0.9 % Sodium Chloride 0.9 % 05/18/2020 12:00:00 AM EDT 4.0 {ml} a ctive Sodium Chloride 0.9 % eCW1 ([facility]) Sodium Chloride 0.154 MEQ/ML Inhalant Solution Sodium Chloride 0.9 % Sodium Chloride 0.9 % 05/18/2020 12:00:00 AM EDT 4.0 {ml} a ctive Sodium Chloride 0.9 % eCW1 ([facility]) Sodium Chloride 0.154 MEQ/ML Inhalant Solution Sodium Chloride 0.9 % Sodium Chloride 0.9 % 05/18/2020 12:00:00 AM EDT 4.0 {ml} a ctive Sodium Chloride 0.9 % eCW1 ([facility]) 200 ACTUAT Levalbuterol 0.045 MG/ACTUAT Metered Dose Inhaler [Xopenex] Xopenex HFA 45 MCG/ACT Xopenex HFA 45 MCG/ACT 05/18/2020 12:00:00 AM EDT 1.0 {puff_as_needed} active Xopenex HFA 45 MCG/ACT eCW1 ([facility]) 200 ACTUAT Levalbuterol 0.045 MG/ACTUAT Metered Dose Inhaler [Xopenex] Xopenex HFA 45 MCG/ACT Xopenex HFA 45 MCG/ACT 05/18/2020 12:00:00 AM EDT 1.0 {puff_as_needed} active Xopenex HFA 45 MCG/ACT eCW1 ([facility]) 200 ACTUAT Levalbuterol 0.045 MG/ACTUAT Metered Dose Inhaler [Xopenex] Xopenex HFA 45 MCG/ACT Xopenex HFA 45 MCG/ACT 05/18/2020 12:00:00 AM EDT 1.0 {puff_as_needed} active Xopenex HFA 45 MCG/ACT eCW1 ([facility]) Sodium Chloride 0.154 MEQ/ML Inhalant Solution Sodium Chloride 0.9 % Sodium Chloride 0.9 % 05/18/2020 12:00:00 AM EDT 4.0 {ml} a ctive Sodium Chloride 0.9 % eCW1 ([facility]) Sodium Chloride 0.154 MEQ/ML Inhalant Solution Sodium Chloride 0.9 % Sodium Chloride 0.9 % 05/18/2020 12:00:00 AM EDT 4.0 {ml} a ctive Sodium Chloride 0.9 % eCW1 ([facility]) 200 ACTUAT Levalbuterol 0.045 MG/ACTUAT Metered Dose Inhaler [Xopenex] Xopenex HFA 45 MCG/ACT Xopenex HFA 45 MCG/ACT 05/18/2020 12:00:00 AM EDT 1.0 {puff_as_needed} active Xopenex HFA 45 MCG/ACT eCW1 ([facility]) 200 ACTUAT Levalbuterol 0.045 MG/ACTUAT Metered Dose Inhaler [Xopenex] Xopenex HFA 45 MCG/ACT Xopenex HFA 45 MCG/ACT 05/18/2020 12:00:00 AM EDT 1.0 {puff_as_needed} active Xopenex HFA 45 MCG/ACT eCW1 ([facility]) 200 ACTUAT Levalbuterol 0.045 MG/ACTUAT Metered Dose Inhaler [Xopenex] Xopenex HFA 45 MCG/ACT Xopenex HFA 45 MCG/ACT 05/18/2020 12:00:00 AM EDT 1.0 {puff_as_needed} active Xopenex HFA 45 MCG/ACT eCW1 ([facility]) 200 ACTUAT Levalbuterol 0.045 MG/ACTUAT Metered Dose Inhaler [Xopenex] Xopenex HFA 45 MCG/ACT Xopenex HFA 45 MCG/ACT 05/18/2020 12:00:00 AM EDT 1.0 {puff_as_needed} active Xopenex HFA 45 MCG/ACT eCW1 ([facility]) Sodium Chloride 0.154 MEQ/ML Inhalant Solution Sodium Chloride 0.9 % Sodium Chloride 0.9 % 05/18/2020 12:00:00 AM EDT 4.0 {ml} a ctive Sodium Chloride 0.9 % eCW1 ([facility]) Sodium Chloride 0.154 MEQ/ML Inhalant Solution Sodium Chloride 0.9 % Sodium Chloride 0.9 % 05/18/2020 12:00:00 AM EDT 4.0 {ml} a ctive Sodium Chloride 0.9 % eCW1 ([facility]) Sodium Chloride 0.154 MEQ/ML Inhalant Solution Sodium Chloride 0.9 % Sodium Chloride 0.9 % 05/18/2020 12:00:00 AM EDT 4.0 {ml} a ctive Sodium Chloride 0.9 % eCW1 ([facility]) Sodium Chloride 0.154 MEQ/ML Inhalant Solution Sodium Chloride 0.9 % Sodium Chloride 0.9 % 05/18/2020 12:00:00 AM EDT 4.0 {ml} a ctive Sodium Chloride 0.9 % eCW1 ([facility]) 200 ACTUAT Levalbuterol 0.045 MG/ACTUAT Metered Dose Inhaler [Xopenex] Xopenex HFA 45 MCG/ACT Xopenex HFA 45 MCG/ACT 05/18/2020 12:00:00 AM EDT 1.0 {puff_as_needed} active Xopenex HFA 45 MCG/ACT eCW1 ([facility]) 200 ACTUAT Levalbuterol 0.045 MG/ACTUAT Metered Dose Inhaler [Xopenex] Xopenex HFA 45 MCG/ACT Xopenex HFA 45 MCG/ACT 05/18/2020 12:00:00 AM EDT 1.0 {puff_as_needed} active Xopenex HFA 45 MCG/ACT eCW1 ([facility]) Sodium Chloride 0.154 MEQ/ML Inhalant Solution Sodium Chloride 0.9 % Sodium Chloride 0.9 % 05/18/2020 12:00:00 AM EDT 4.0 {ml} a ctive Sodium Chloride 0.9 % eCW1 ([facility]) Sodium Chloride 0.154 MEQ/ML Inhalant Solution Sodium Chloride 0.9 % Sodium Chloride 0.9 % 05/18/2020 12:00:00 AM EDT 4.0 {ml} a ctive Sodium Chloride 0.9 % eCW1 ([facility]) 200 ACTUAT Levalbuterol 0.045 MG/ACTUAT Metered Dose Inhaler [Xopenex] Xopenex HFA 45 MCG/ACT Xopenex HFA 45 MCG/ACT 05/18/2020 12:00:00 AM EDT 1.0 {puff_as_needed} active Xopenex HFA 45 MCG/ACT eCW1 ([facility]) 200 ACTUAT Levalbuterol 0.045 MG/ACTUAT Metered Dose Inhaler [Xopenex] Xopenex HFA 45 MCG/ACT Xopenex HFA 45 MCG/ACT 05/18/2020 12:00:00 AM EDT 1.0 {puff_as_needed} active Xopenex HFA 45 MCG/ACT eCW1 ([facility]) Sodium Chloride 0.154 MEQ/ML Inhalant Solution Sodium Chloride 0.9 % Sodium Chloride 0.9 % 05/18/2020 12:00:00 AM EDT 4.0 {ml} a ctive Sodium Chloride 0.9 % eCW1 ([facility]) 200 ACTUAT Levalbuterol 0.045 MG/ACTUAT Metered Dose Inhaler [Xopenex] Xopenex HFA 45 MCG/ACT Xopenex HFA 45 MCG/ACT 05/18/2020 12:00:00 AM EDT 1.0 {puff_as_needed} active Xopenex HFA 45 MCG/ACT eCW1 ([facility]) 200 ACTUAT Levalbuterol 0.045 MG/ACTUAT Metered Dose Inhaler [Xopenex] Xopenex HFA 45 MCG/ACT Xopenex HFA 45 MCG/ACT 05/18/2020 12:00:00 AM EDT 1.0 {puff_as_needed} active Xopenex HFA 45 MCG/ACT eCW1 ([facility]) 200 ACTUAT Levalbuterol 0.045 MG/ACTUAT Metered Dose Inhaler [Xopenex] Xopenex HFA 45 MCG/ACT Xopenex HFA 45 MCG/ACT 05/18/2020 12:00:00 AM EDT 1.0 {puff_as_needed} active Xopenex HFA 45 MCG/ACT eCW1 ([facility]) Prednisone 20 MG Oral Tablet PredniSONE 20 MG PredniSONE 20 MG 05/17/2020 12:00:00 AM EDT 1.0 {tablet} active Pr edniSONE 20 MG eCW1 ([facility]) Prednisone 20 MG Oral Tablet PredniSONE 20 MG PredniSONE 20 MG 05/17/2020 12:00:00 AM EDT 1.0 {tablet} active Pr edniSONE 20 MG eCW1 ([facility]) Prednisone 20 MG Oral Tablet PredniSONE 20 MG PredniSONE 20 MG 05/17/2020 12:00:00 AM EDT 1.0 {tablet} active Pr edniSONE 20 MG eCW1 ([facility]) Prednisone 20 MG Oral Tablet PredniSONE 20 MG PredniSONE 20 MG 05/17/2020 12:00:00 AM EDT 1.0 {tablet} active Pr edniSONE 20 MG eCW1 ([facility]) Prednisone 20 MG Oral Tablet PredniSONE 20 MG PredniSONE 20 MG 05/17/2020 12:00:00 AM EDT 1.0 {tablet} active Pr edniSONE 20 MG eCW1 ([facility]) Prednisone 20 MG Oral Tablet PredniSONE 20 MG PredniSONE 20 MG 05/17/2020 12:00:00 AM EDT 1.0 {tablet} active Pr edniSONE 20 MG eCW1 ([facility]) Prednisone 20 MG Oral Tablet PredniSONE 20 MG PredniSONE 20 MG 05/17/2020 12:00:00 AM EDT 1.0 {tablet} active Pr edniSONE 20 MG eCW1 ([facility]) Prednisone 20 MG Oral Tablet PredniSONE 20 MG PredniSONE 20 MG 05/17/2020 12:00:00 AM EDT 1.0 {tablet} active Pr edniSONE 20 MG eCW1 ([facility]) Clobetasol Propionate 0.5 MG/ML Topical Cream Clobetas ol Propionate 0.05 % Clobetasol Propionate 0.05 % 02/27/2020 12:00:00 AM EST active Clobetasol Propionate 0.05 % eCW1 ([facility]) Clobetasol Propionate 0.5 MG/ML Topical Cream Clobetas ol Propionate 0.05 % Clobetasol Propionate 0.05 % 02/27/2020 12:00:00 AM EST active Clobetasol Propionate 0.05 % eCW1 ([facility]) Clobetasol Propionate 0.5 MG/ML Topical Cream Clobetas ol Propionate 0.05 % Clobetasol Propionate 0.05 % 02/27/2020 12:00:00 AM EST active Clobetasol Propionate 0.05 % eCW1 ([facility]) Clobetasol Propionate 0.5 MG/ML Topical Cream Clobetas ol Propionate 0.05 % Clobetasol Propionate 0.05 % 02/27/2020 12:00:00 AM EST active Clobetasol Propionate 0.05 % eCW1 ([facility]) Clobetasol Propionate 0.5 MG/ML Topical Cream Clobetas ol Propionate 0.05 % Clobetasol Propionate 0.05 % 02/27/2020 12:00:00 AM EST active Clobetasol Propionate 0.05 % eCW1 ([facility]) Clobetasol Propionate 0.5 MG/ML Topical Cream Clobetas ol Propionate 0.05 % Clobetasol Propionate 0.05 % 02/27/2020 12:00:00 AM EST active Clobetasol Propionate 0.05 % eCW1 ([facility]) Clobetasol Propionate 0.5 MG/ML Topical Cream Clobetas ol Propionate 0.05 % Clobetasol Propionate 0.05 % 02/27/2020 12:00:00 AM EST active Clobetasol Propionate 0.05 % eCW1 ([facility]) Clobetasol Propionate 0.5 MG/ML Topical Cream Clobetas ol Propionate 0.05 % Clobetasol Propionate 0.05 % 02/27/2020 12:00:00 AM EST active Clobetasol Propionate 0.05 % eCW1 ([facility]) Clobetasol Propionate 0.5 MG/ML Topical Cream Clobetas ol Propionate 0.05 % Clobetasol Propionate 0.05 % 02/27/2020 12:00:00 AM EST active Clobetasol Propionate 0.05 % eCW1 ([facility]) Clobetasol Propionate 0.5 MG/ML Topical Cream Clobetas ol Propionate 0.05 % Clobetasol Propionate 0.05 % 02/27/2020 12:00:00 AM EST active Clobetasol Propionate 0.05 % eCW1 ([facility]) Clobetasol Propionate 0.5 MG/ML Topical Cream Clobetas ol Propionate 0.05 % Clobetasol Propionate 0.05 % 02/27/2020 12:00:00 AM EST active Clobetasol Propionate 0.05 % eCW1 ([facility]) Clobetasol Propionate 0.5 MG/ML Topical Cream Clobetas ol Propionate 0.05 % Clobetasol Propionate 0.05 % 02/27/2020 12:00:00 AM EST active Clobetasol Propionate 0.05 % eCW1 ([facility]) Clobetasol Propionate 0.5 MG/ML Topical Cream Clobetas ol Propionate 0.05 % Clobetasol Propionate 0.05 % 02/27/2020 12:00:00 AM EST active Clobetasol Propionate 0.05 % eCW1 ([facility]) Clobetasol Propionate 0.5 MG/ML Topical Cream Clobetas ol Propionate 0.05 % Clobetasol Propionate 0.05 % 02/27/2020 12:00:00 AM EST active Clobetasol Propionate 0.05 % eCW1 ([facility]) Clobetasol Propionate 0.5 MG/ML Topical Cream Clobetas ol Propionate 0.05 % Clobetasol Propionate 0.05 % 02/27/2020 12:00:00 AM EST active Clobetasol Propionate 0.05 % eCW1 ([facility]) Clobetasol Propionate 0.5 MG/ML Topical Cream Clobetas ol Propionate 0.05 % Clobetasol Propionate 0.05 % 02/27/2020 12:00:00 AM EST active Clobetasol Propionate 0.05 % eCW1 ([facility]) Clobetasol Propionate 0.5 MG/ML Topical Cream Clobetas ol Propionate 0.05 % Clobetasol Propionate 0.05 % 02/27/2020 12:00:00 AM EST active Clobetasol Propionate 0.05 % eCW1 ([facility]) Clobetasol Propionate 0.5 MG/ML Topical Cream Clobetas ol Propionate 0.05 % Clobetasol Propionate 0.05 % 02/27/2020 12:00:00 AM EST active Clobetasol Propionate 0.05 % eCW1 ([facility]) Clobetasol Propionate 0.5 MG/ML Topical Cream Clobetas ol Propionate 0.05 % Clobetasol Propionate 0.05 % 02/27/2020 12:00:00 AM EST active Clobetasol Propionate 0.05 % eCW1 ([facility]) Clobetasol Propionate 0.5 MG/ML Topical Cream Clobetas ol Propionate 0.05 % Clobetasol Propionate 0.05 % 02/27/2020 12:00:00 AM EST active Clobetasol Propionate 0.05 % eCW1 ([facility]) Clobetasol Propionate 0.5 MG/ML Topical Cream Clobetas ol Propionate 0.05 % Clobetasol Propionate 0.05 % 02/27/2020 12:00:00 AM EST active Clobetasol Propionate 0.05 % eCW1 ([facility]) Clobetasol Propionate 0.5 MG/ML Topical Cream Clobetas ol Propionate 0.05 % Clobetasol Propionate 0.05 % 02/27/2020 12:00:00 AM EST active Clobetasol Propionate 0.05 % eCW1 ([facility]) Clobetasol Propionate 0.5 MG/ML Topical Cream Clobetas ol Propionate 0.05 % Clobetasol Propionate 0.05 % 02/27/2020 12:00:00 AM EST active Clobetasol Propionate 0.05 % eCW1 ([facility]) Clobetasol Propionate 0.5 MG/ML Topical Cream Clobetas ol Propionate 0.05 % Clobetasol Propionate 0.05 % 02/27/2020 12:00:00 AM EST active Clobetasol Propionate 0.05 % eCW1 ([facility]) Clobetasol Propionate 0.5 MG/ML Topical Cream Clobetas ol Propionate 0.05 % Clobetasol Propionate 0.05 % 02/27/2020 12:00:00 AM EST active Clobetasol Propionate 0.05 % eCW1 ([facility]) Levalbuterol 0.417 MG/ML Inhalant Solution Levalbutero l HCl 1.25 MG/3ML Levalbuterol HCl 1.25 MG/3ML 12/02/2019 12:00:00 AM EDT 3.0 {ml} active Levalbuterol HCl 1.25 MG/3ML eCW1 ([facility]) Levalbuterol 0.417 MG/ML Inhalant Solution Levalbutero l HCl 1.25 MG/3ML Levalbuterol HCl 1.25 MG/3ML 12/02/2019 12:00:00 AM EDT 3.0 {ml} active Levalbuterol HCl 1.25 MG/3ML eCW1 ([facility]) Levalbuterol 0.417 MG/ML Inhalant Solution Levalbutero l HCl 1.25 MG/3ML Levalbuterol HCl 1.25 MG/3ML 12/02/2019 12:00:00 AM EDT 3.0 {ml} active Levalbuterol HCl 1.25 MG/3ML eCW1 ([facility]) Levalbuterol 0.417 MG/ML Inhalant Solution Levalbutero l HCl 1.25 MG/3ML Levalbuterol HCl 1.25 MG/3ML 12/02/2019 12:00:00 AM EDT 3.0 {ml} active Levalbuterol HCl 1.25 MG/3ML eCW1 ([facility]) Levalbuterol 0.417 MG/ML Inhalant Solution Levalbutero l HCl 1.25 MG/3ML Levalbuterol HCl 1.25 MG/3ML 12/02/2019 12:00:00 AM EDT 3.0 {ml} active Levalbuterol HCl 1.25 MG/3ML eCW1 ([facility]) Levalbuterol 0.417 MG/ML Inhalant Solution Levalbutero l HCl 1.25 MG/3ML Levalbuterol HCl 1.25 MG/3ML 12/02/2019 12:00:00 AM EDT 3.0 {ml} active Levalbuterol HCl 1.25 MG/3ML eCW1 ([facility]) Levalbuterol 0.417 MG/ML Inhalant Solution Levalbutero l HCl 1.25 MG/3ML Levalbuterol HCl 1.25 MG/3ML 12/02/2019 12:00:00 AM EDT 3.0 {ml} active Levalbuterol HCl 1.25 MG/3ML eCW1 ([facility]) Levalbuterol 0.417 MG/ML Inhalant Solution Levalbutero l HCl 1.25 MG/3ML Levalbuterol HCl 1.25 MG/3ML 12/02/2019 12:00:00 AM EDT 3.0 {ml} active Levalbuterol HCl 1.25 MG/3ML eCW1 ([facility]) Levalbuterol 0.417 MG/ML Inhalant Solution Levalbutero l HCl 1.25 MG/3ML Levalbuterol HCl 1.25 MG/3ML 12/02/2019 12:00:00 AM EDT 3.0 {ml} active Levalbuterol HCl 1.25 MG/3ML eCW1 ([facility]) Levalbuterol 0.417 MG/ML Inhalant Solution Levalbutero l HCl 1.25 MG/3ML Levalbuterol HCl 1.25 MG/3ML 12/02/2019 12:00:00 AM EDT 3.0 {ml} active Levalbuterol HCl 1.25 MG/3ML eCW1 ([facility]) Levalbuterol 0.417 MG/ML Inhalant Solution Levalbutero l HCl 1.25 MG/3ML Levalbuterol HCl 1.25 MG/3ML 12/02/2019 12:00:00 AM EDT 3.0 {ml} active Levalbuterol HCl 1.25 MG/3ML eCW1 ([facility]) Levalbuterol 0.417 MG/ML Inhalant Solution Levalbutero l HCl 1.25 MG/3ML Levalbuterol HCl 1.25 MG/3ML 12/02/2019 12:00:00 AM EDT 3.0 {ml} active Levalbuterol HCl 1.25 MG/3ML eCW1 ([facility]) Levalbuterol 0.417 MG/ML Inhalant Solution Levalbutero l HCl 1.25 MG/3ML Levalbuterol HCl 1.25 MG/3ML 12/02/2019 12:00:00 AM EDT 3.0 {ml} active Levalbuterol HCl 1.25 MG/3ML eCW1 ([facility]) Levalbuterol 0.417 MG/ML Inhalant Solution Levalbutero l HCl 1.25 MG/3ML Levalbuterol HCl 1.25 MG/3ML 12/02/2019 12:00:00 AM EDT 3.0 {ml} active Levalbuterol HCl 1.25 MG/3ML eCW1 ([facility]) Levalbuterol 0.417 MG/ML Inhalant Solution Levalbutero l HCl 1.25 MG/3ML Levalbuterol HCl 1.25 MG/3ML 12/02/2019 12:00:00 AM EDT 3.0 {ml} active Levalbuterol HCl 1.25 MG/3ML eCW1 ([facility]) Levalbuterol 0.417 MG/ML Inhalant Solution Levalbutero l HCl 1.25 MG/3ML Levalbuterol HCl 1.25 MG/3ML 12/02/2019 12:00:00 AM EDT 3.0 {ml} active Levalbuterol HCl 1.25 MG/3ML eCW1 ([facility]) Levalbuterol 0.417 MG/ML Inhalant Solution Levalbutero l HCl 1.25 MG/3ML Levalbuterol HCl 1.25 MG/3ML 12/02/2019 12:00:00 AM EDT 3.0 {ml} active Levalbuterol HCl 1.25 MG/3ML eCW1 ([facility]) Levalbuterol 0.417 MG/ML Inhalant Solution Levalbutero l HCl 1.25 MG/3ML Levalbuterol HCl 1.25 MG/3ML 12/02/2019 12:00:00 AM EDT 3.0 {ml} active Levalbuterol HCl 1.25 MG/3ML eCW1 ([facility]) Levalbuterol 0.417 MG/ML Inhalant Solution Levalbutero l HCl 1.25 MG/3ML Levalbuterol HCl 1.25 MG/3ML 12/02/2019 12:00:00 AM EDT 3.0 {ml} active Levalbuterol HCl 1.25 MG/3ML eCW1 ([facility]) Levalbuterol 0.417 MG/ML Inhalant Solution Levalbutero l HCl 1.25 MG/3ML Levalbuterol HCl 1.25 MG/3ML 12/02/2019 12:00:00 AM EDT 3.0 {ml} active Levalbuterol HCl 1.25 MG/3ML eCW1 ([facility]) Levalbuterol 0.417 MG/ML Inhalant Solution Levalbutero l HCl 1.25 MG/3ML Levalbuterol HCl 1.25 MG/3ML 12/02/2019 12:00:00 AM EDT 3.0 {ml} active Levalbuterol HCl 1.25 MG/3ML eCW1 ([facility]) Levalbuterol 0.417 MG/ML Inhalant Solution Levalbutero l HCl 1.25 MG/3ML Levalbuterol HCl 1.25 MG/3ML 12/02/2019 12:00:00 AM EDT 3.0 {ml} active Levalbuterol HCl 1.25 MG/3ML eCW1 ([facility]) Levalbuterol 0.417 MG/ML Inhalant Solution Levalbutero l HCl 1.25 MG/3ML Levalbuterol HCl 1.25 MG/3ML 12/02/2019 12:00:00 AM EDT 3.0 {ml} active Levalbuterol HCl 1.25 MG/3ML eCW1 ([facility]) Levalbuterol 0.417 MG/ML Inhalant Solution Levalbutero l HCl 1.25 MG/3ML Levalbuterol HCl 1.25 MG/3ML 12/02/2019 12:00:00 AM EDT 3.0 {ml} active Levalbuterol HCl 1.25 MG/3ML eCW1 ([facility]) Levalbuterol 0.417 MG/ML Inhalant Solution Levalbutero l HCl 1.25 MG/3ML Levalbuterol HCl 1.25 MG/3ML 12/02/2019 12:00:00 AM EDT 3.0 {ml} active Levalbuterol HCl 1.25 MG/3ML eCW1 ([facility]) Levalbuterol 0.417 MG/ML Inhalant Solution Levalbutero l HCl 1.25 MG/3ML Levalbuterol HCl 1.25 MG/3ML 12/02/2019 12:00:00 AM EDT 3.0 {ml} active Levalbuterol HCl 1.25 MG/3ML eCW1 ([facility]) Levalbuterol 0.417 MG/ML Inhalant Solution Levalbutero l HCl 1.25 MG/3ML Levalbuterol HCl 1.25 MG/3ML 12/02/2019 12:00:00 AM EDT 3.0 {ml} active Levalbuterol HCl 1.25 MG/3ML eCW1 ([facility]) Levalbuterol 0.417 MG/ML Inhalant Solution Levalbutero l HCl 1.25 MG/3ML Levalbuterol HCl 1.25 MG/3ML 12/02/2019 12:00:00 AM EDT 3.0 {ml} active Levalbuterol HCl 1.25 MG/3ML eCW1 ([facility]) Levalbuterol 0.417 MG/ML Inhalant Solution Levalbutero l HCl 1.25 MG/3ML Levalbuterol HCl 1.25 MG/3ML 12/02/2019 12:00:00 AM EDT 3.0 {ml} active Levalbuterol HCl 1.25 MG/3ML eCW1 ([facility]) Levalbuterol 0.417 MG/ML Inhalant Solution Levalbutero l HCl 1.25 MG/3ML Levalbuterol HCl 1.25 MG/3ML 12/02/2019 12:00:00 AM EDT 3.0 {ml} active Levalbuterol HCl 1.25 MG/3ML eCW1 ([facility]) Levalbuterol 0.417 MG/ML Inhalant Solution Levalbutero l HCl 1.25 MG/3ML Levalbuterol HCl 1.25 MG/3ML 12/02/2019 12:00:00 AM EDT 3.0 {ml} active Levalbuterol HCl 1.25 MG/3ML eCW1 ([facility]) Insurance Providers Payer name Policy type / Coverage type Policy ID Covered constitution party ID Covered constitution party's relationship to ocampo Policy [place] Plan Information [facility] [id number] [facility] [id number] Problems, Conditions, and Diagnoses Code Display Name Description Problem Type Effective Dates Data Source(s) L20.82 [id number] Flexural eczema Problem 11/04/2020 12:00:00 AM EDT eCW1 ([facility]) D82.1 [id number] DiGeorge syndrome Problem 08/02/2020 12:00:0 0 AM EDT eCW1 ([facility]) J45.901 [id number] Exacerbation of asth ma, unspecified asthma severity, unspecified whether persistent Problem 05/17/2020 12:00:00 AM EDT eC W1 ([facility]) Z95.2 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 Problem 04/23/2020 12:00:00 AM EST eCW1 ([facility]) Surgeries/Procedures Procedure Description Date Indications Data Source(s) Immunization: Flublok Quadrivalent (18 years & older) 0.5mL IM (Influenza) 12/23/2019 12:00:00 AM EST eCW1 ([facility]) Results ID Date Data Source [id number] 05/17/2020 02:00:00 PM EDT [facility] Name Value Range Interpretation Code Description Data Arpita rce(s) Supporting Document(s) SARS-CoV-2 (COVID-19) RNA [Presence] in Respiratory specimen by DEBORAH with probe detection Not Detected [facility] This lab was ordered by [facility] and reported by [employer] ID Date Data Source [id number] 05/17/2020 12:26:00 PM EDT [facility] Name Value Range Interpretation Code Description Data Arpita rce(s) Supporting Document(s) SARS COVID ANTIGEN NEGATIVE [facility] This lab was ordered by [facility] nd reported by [facility]. ID Date Data Source LUCINDA COVID AG (Point of Care) 05/17/2020 12:00:00 AM EDT eC W1 ([facility]) Name Value Range Interpretation Code Description Data Arpita rce(s) Supporting Document(s) NEGATIVE NEGATIVE LUCINDA COVID ANTIGEN eCW1 ([facility]) ID Date Data Source [id number] 12/08/2019 02:30:00 PM EDT [facility] Name Value Range Interpretation Code Description Data Arpita rce(s) Supporting Document(s) SARS coronavirus 2 RNA [facility] This lab was ordered by [facility] and reported by [facility]. Procedure Social History Code Duration Value Status Description Data Source(s ) Smoking 11/04/2020 12:00:00 AM EDT Never Smoker completed Never S moker eCW1 ([facility]) Smoking 11/04/2020 12:00:00 AM EDT Never Smoker completed Never S moker eCW1 ([facility]) Smoking 05/21/2020 12:00:00 AM EDT Never Smoker completed Never S moker eCW1 ([facility]) Smoking 05/21/2020 12:00:00 AM EDT Never Smoker completed Never S moker eCW1 ([facility]) Smoking 05/21/2020 12:00:00 AM EDT Never Smoker completed Never S moker eCW1 ([facility]) Smoking 05/21/2020 12:00:00 AM EDT Never Smoker completed Never S moker eCW1 ([facility]) Smoking 05/21/2020 12:00:00 AM EDT Never Smoker completed Never S moker eCW1 ([facility]) Smoking 05/21/2020 12:00:00 AM EDT Never Smoker completed Never S moker eCW1 ([facility]) Smoking 05/21/2020 12:00:00 AM EDT Never Smoker completed Never S moker eCW1 ([facility]) Smoking 05/21/2020 12:00:00 AM EDT Never Smoker completed Never S moker eCW1 ([facility]) Smoking 05/21/2020 12:00:00 AM EDT Never Smoker completed Never S moker eCW1 ([facility]) Smoking 05/21/2020 12:00:00 AM EDT Never Smoker completed Never S moker eCW1 ([facility]) Smoking 05/21/2020 12:00:00 AM EDT Never Smoker completed Never S moker eCW1 ([facility]) Smoking 05/21/2020 12:00:00 AM EDT Never Smoker completed Never S moker eCW1 ([facility]) Smoking 05/21/2020 12:00:00 AM EDT Never Smoker completed Never S moker eCW1 ([facility]) Smoking 05/17/2020 12:00:00 AM EDT Never Smoker completed Never S moker eCW1 ([facility]) Smoking 05/17/2020 12:00:00 AM EDT Never Smoker completed Never S moker eCW1 ([facility]) Smoking 05/17/2020 12:00:00 AM EDT Never Smoker completed Never S moker eCW1 ([facility]) Smoking 05/17/2020 12:00:00 AM EDT Never Smoker completed Never S moker eCW1 ([facility]) Smoking 05/17/2020 12:00:00 AM EDT Never Smoker completed Never S moker eCW1 ([facility]) Smoking 05/17/2020 12:00:00 AM EDT Never Smoker completed Never S moker eCW1 ([facility]) Smoking 05/17/2020 12:00:00 AM EDT Never Smoker completed Never S moker eCW1 ([facility]) Smoking 05/17/2020 12:00:00 AM EDT Never Smoker completed Never S moker eCW1 ([facility]) Smoking 04/23/2020 12:00:00 AM EST Never Smoker completed Never S moker eCW1 ([facility]) Vital Signs ID Date Data Source UNK Name Value Range Interpretation Code Description Data Source(s) Body weight 170.8 [lb_av] 170.8 [lb_av] eCW1 ([facility]) Body height 61 [in_i] 61 [in_i] eCW1 ([facility]) Body mass index (BMI) [Ratio] 32.27 kg/m2 32.27 kg/m2 eCW1 ([facility]) Heart rate 75 /min 75 /min eCW1 ([facility]) Respiratory rate 17 /min 17 /min eCW1 ([facility]) Body temperature 97.6 [degF] 97.6 [degF] eCW1 ( [facility]) Systolic blood pressure 129 mm[Hg] 129 mm[Hg] e CW1 ([facility]) Diastolic blood pressure 65 mm[Hg] 65 mm[Hg] eCW1 ([facility]) Body weight 170.6 [lb_av] 170.6 [lb_av] eCW1 ([facility]) Body height 61 [in_i] 61 [in_i] eCW1 ([facility]) Body mass index (BMI) [Ratio] 32.23 kg/m2 32.23 kg/m2 eCW1 ([facility]) Heart rate 71 /min 71 /min eCW1 ([facility]) Respiratory rate 18 /min 18 /min eCW1 ([facility]) Body temperature 97.1 [degF] 97.1 [degF] eCW1 ( [facility]) Systolic blood pressure 113 mm[Hg] 113 mm[Hg] e CW1 ([facility]) Diastolic blood pressure 72 mm[Hg] 72 mm[Hg] eCW1 ([facility]) Body weight 173 [lb_av] 173 [lb_av] eCW1 ([facility]) Body height 61 [in_i] 61 [in_i] eCW1 ([facility]) Body mass index (BMI) [Ratio] 32.68 kg/m2 32.68 kg/m2 eCW1 ([facility]) Heart rate 80 /min 80 /min eCW1 ([facility]) Respiratory rate 18 /min 18 /min eCW1 ([facility]) Body temperature 97.7 [degF] 97.7 [degF] eCW1 ( [facility]) Systolic blood pressure 110 mm[Hg] 110 mm[Hg] e CW1 ([facility]) Diastolic blood pressure 72 mm[Hg] 72 mm[Hg] eCW1 ([facility]) Patient Treatment Plan of Care Planned Activity Planned Date Details Description Data Source (s) Omeprazole 40 MG Delayed Release Oral Capsule 05/21/2020 12:00:00 A M EDT eCW1 ([facility]) Omeprazole 40 MG Delayed Release Oral Capsule 05/21/2020 12:00:00 A M EDT eCW1 ([facility]) Omeprazole 40 MG Delayed Release Oral Capsule 05/21/2020 12:00:00 A M EDT eCW1 ([facility]) Omeprazole 40 MG Delayed Release Oral Capsule 05/21/2020 12:00:00 A M EDT eCW1 ([facility]) Omeprazole 40 MG Delayed Release Oral Capsule 05/21/2020 12:00:00 A M EDT eCW1 ([facility]) Omeprazole 40 MG Delayed Release Oral Capsule 05/21/2020 12:00:00 A M EDT eCW1 ([facility]) Omeprazole 20 MG Delayed Release Oral Capsule 05/21/2020 12:00:00 A M EDT eCW1 ([facility]) Omeprazole 20 MG Delayed Release Oral Capsule 05/21/2020 12:00:00 A M EDT eCW1 ([facility]) Omeprazole 20 MG Delayed Release Oral Capsule 05/21/2020 12:00:00 A M EDT eCW1 ([facility]) Omeprazole 20 MG Delayed Release Oral Capsule 05/21/2020 12:00:00 A M EDT eCW1 ([facility]) Omeprazole 20 MG Delayed Release Oral Capsule 05/21/2020 12:00:00 A M EDT eCW1 ([facility]) Omeprazole 20 MG Delayed Release Oral Capsule 05/21/2020 12:00:00 A M EDT eCW1 ([facility]) Omeprazole 20 MG Delayed Release Oral Capsule 05/21/2020 12:00:00 A M EDT eCW1 ([facility]) Pulse Oximeter - 05/20/2020 12:00:00 AM EDT eCW1 ([facility]) Pulse Oximeter - 05/20/2020 12:00:00 AM EDT eCW1 ([facility]) 200 ACTUAT Levalbuterol 0.045 MG/ACTUAT Metered Dose I nhaler [Xopenex] 05/18/2020 12:00:00 AM EDT eCW1 ([facility]) Sodium Chloride 0.154 MEQ/ML Inhalant Solution 05/18/2020 12:00:00 AM EDT eCW1 ([facility]) 200 ACTUAT Levalbuterol 0.045 MG/ACTUAT Metered Dose I nhaler [Xopenex] 05/18/2020 12:00:00 AM EDT eCW1 ([facility]) Sodium Chloride 0.154 MEQ/ML Inhalant Solution 05/18/2020 12:00:00 AM EDT eCW1 ([facility]) 200 ACTUAT Levalbuterol 0.045 MG/ACTUAT Metered Dose I nhaler [Xopenex] 05/18/2020 12:00:00 AM EDT eCW1 ([facility]) Sodium Chloride 0.154 MEQ/ML Inhalant Solution 05/18/2020 12:00:00 AM EDT eCW1 ([facility]) 200 ACTUAT Levalbuterol 0.045 MG/ACTUAT Metered Dose I nhaler [Xopenex] 05/18/2020 12:00:00 AM EDT eCW1 ([facility]) Sodium Chloride 0.154 MEQ/ML Inhalant Solution 05/18/2020 12:00:00 AM EDT eCW1 ([facility]) 200 ACTUAT Levalbuterol 0.045 MG/ACTUAT Metered Dose I nhaler [Xopenex] 05/18/2020 12:00:00 AM EDT eCW1 ([facility]) Sodium Chloride 0.154 MEQ/ML Inhalant Solution 05/18/2020 12:00:00 AM EDT eCW1 ([facility]) Prednisone 20 MG Oral Tablet 05/17/2020 12:00:00 AM EDT eCW1 ([facility]) Prednisone 20 MG Oral Tablet 05/17/2020 12:00:00 AM EDT eCW1 ([facility]) Prednisone 20 MG Oral Tablet 05/17/2020 12:00:00 AM EDT eCW1 ([facility]) Prednisone 20 MG Oral Tablet 05/17/2020 12:00:00 AM EDT eCW1 ([facility]) Prednisone 20 MG Oral Tablet 05/17/2020 12:00:00 AM EDT eCW1 ([facility]) Prednisone 20 MG Oral Tablet 05/17/2020 12:00:00 AM EDT eCW1 ([facility]) Prednisone 20 MG Oral Tablet 05/17/2020 12:00:00 AM EDT eCW1 ([facility]) Prednisone 20 MG Oral Tablet 05/17/2020 12:00:00 AM EDT eCW1 ([facility]) Clobetasol Propionate 0.5 MG/ML Topical Cream 02/27/2020 12:00:00 A M EST eCW1 ([facility]) Clobetasol Propionate 0.5 MG/ML Topical Cream 02/27/2020 12:00:00 A M EST eCW1 ([facility]) Clobetasol Propionate 0.5 MG/ML Topical Cream 02/27/2020 12:00:00 A M EST eCW1 ([facility]) Clobetasol Propionate 0.5 MG/ML Topical Cream 02/27/2020 12:00:00 A M EST eCW1 ([facility]) Clobetasol Propionate 0.5 MG/ML Topical Cream 02/27/2020 12:00:00 A M EST eCW1 ([facility]) Clobetasol Propionate 0.5 MG/ML Topical Cream 02/27/2020 12:00:00 A M EST eCW1 ([facility]) Clobetasol Propionate 0.5 MG/ML Topical Cream 02/27/2020 12:00:00 A M EST eCW1 ([facility]) Clobetasol Propionate 0.5 MG/ML Topical Cream 02/27/2020 12:00:00 A M EST eCW1 ([facility]) Clobetasol Propionate 0.5 MG/ML Topical Cream 02/27/2020 12:00:00 A M EST eCW1 ([facility]) Clobetasol Propionate 0.5 MG/ML Topical Cream 02/27/2020 12:00:00 A M EST eCW1 ([facility]) Clobetasol Propionate 0.5 MG/ML Topical Cream 02/27/2020 12:00:00 A M EST eCW1 ([facility]) Clobetasol Propionate 0.5 MG/ML Topical Cream 02/27/2020 12:00:00 A M EST eCW1 ([facility]) Clobetasol Propionate 0.5 MG/ML Topical Cream 02/27/2020 12:00:00 A M EST eCW1 ([facility]) Clobetasol Propionate 0.5 MG/ML Topical Cream 02/27/2020 12:00:00 A M EST eCW1 ([facility]) Clobetasol Propionate 0.5 MG/ML Topical Cream 02/27/2020 12:00:00 A M EST eCW1 ([facility]) Levalbuterol 0.417 MG/ML Inhalant Solution 12/02/2019 12:00:00 AM E DT eCW1 ([facility]) Levalbuterol 0.417 MG/ML Inhalant Solution 12/02/2019 12:00:00 AM E DT eCW1 ([facility]) Levalbuterol 0.417 MG/ML Inhalant Solution 12/02/2019 12:00:00 AM E DT eCW1 ([facility]) Levalbuterol 0.417 MG/ML Inhalant Solution 12/02/2019 12:00:00 AM E DT eCW1 ([facility]) Levalbuterol 0.417 MG/ML Inhalant Solution 12/02/2019 12:00:00 AM E DT eCW1 ([facility]) Levalbuterol 0.417 MG/ML Inhalant Solution 12/02/2019 12:00:00 AM E DT eCW1 ([facility]) Levalbuterol 0.417 MG/ML Inhalant Solution 12/02/2019 12:00:00 AM E DT eCW1 ([facility])
--- OUTSIDE RECORDS SUMMARY | 2020-12-27 09:33 | CCD ---
Author Author [facility] Organization [facility] Address Unknown Phone Unavailable Care Team Providers Care Head Holder Name Role Phone Jorge Joselin Unavailable PROBLEMS Type Condition ICD9-CM Code [id number] Code Onset Dates Condition S tatus W/U Status Risk SNOMED Code Notes Problem Non-seasonal allergic rhinitis, unspecified trigger J30.89 Active confirmed 67340989 Problem Slow transit constipation K59.01 Active confirmed 41102666 Problem PMS (premenstrual syndrome) N94.3 Active confirmed 50084582 Problem Exacerbation of asthma, unsp ecified asthma severity, unspecified whether persistent J45.901 Active confirmed 615311445 Problem DiGeorge syndrome D82.1 Active confirmed 76 5259432 Problem Mild intermittent asthma without complication J45. 20 Active confirmed 872683484 Problem Vitamin D insufficiency E55.9 Active confirmed 96998630 Problem Seasonal allergies J30.2 Active confirmed 4 71914666 Problem S/P pulmonary valve replacement Z95.2 Active confirmed [id number] ALLERGIES No Known Allergies ENCOUNTERS from 1996 to 2020-10-19 Encounter Location Date Provider Diagnosis [facility] [address] [facility] [phone] [place] [address] Oct, Joselin Patel IMMUNIZATIONS Vaccine Route Administration [...] Education Language: Question Answer Notes Languages spoken: Qatari Moravian: Question Answer Notes Moravian 08 Sabianism Sexual Hx: Question Answer Notes Had sex [...] Information RESULTS No Results REASON FOR VISIT EKG MEDICAL (GENERAL) HISTORY Type Description Date Medical [...] Appt Details Provider Name:Joselinlesli Patel, 02:00:00 PM, [address] [facility], , [place], [address], Insurance Providers Payer Name Payer Address Payer Phone Insured Name Patient Relati onship to Insured Coverage Start Date Coverage End Date [facility] [address] [place] [id number] [address]ERAS
--- OUTSIDE RECORDS SUMMARY | 2020-12-27 09:33 | CCD ---
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 Active confirmed 76 0744462 Problem Non-seasonal allergic rhinitis, unspecified trigger J30.89 Active confirmed 89803092 Problem Flexural eczema L20.82 Active confirmed 5709 2006 Problem Vitamin D insufficiency E55.9 Active confirmed 43096986 Problem Seasonal allergies J30.2 Active confirmed 4 21380831 Problem S/P pulmonary valve replacement Z95.2 Active confirmed 470594762885037 Problem Exacerbation of asthma, unsp ecified asthma severity, unspecified whether persistent J45.901 Active confirmed 967144601 ALLERGIES No Known Allergies ENCOUNTERS from 1996 to 2020-11-15 Encounter Location Date Provider Diagnosis [address] [phone] [place] [address] Nov, Joselin Patel IMMUNIZATIONS Vaccine Route Administration Date [...] Education Language: Question Answer Notes Languages spoken: Northern Irish Christianity: Question Answer Notes Christianity 08 Methodist Sexual Hx: Question Answer Notes Had sex [...] Notes Start Da te End Date Status Aspir-Low 81 MG 1 tablet Orally Once a day for 90 day(s) Active Flovent HFA 110 MCG/ACT 2 puff Inhalation Twice a day for 90 day(s) Active Fexofenadine HCl 180 MG 1 tablet as needed Orally Once a day for 90 day(s) Active Levalbuterol HCl 1.25 MG/3ML 3 ml Inhalation every 8 hrs for 90 day(s) Nov, Active Omeprazole 40 MG 1 capsule 30 minutes before morning meal Orally Once a day for 8-8 weeks, then prn for 90 days dosage increase May, Active Lasix 20 MG 1 tablet Orally Once a day for 90 day(s) cardiology Active Flonase Allergy Relief 50 MCG/ACT 1 spray in each nost ril Nasally bid for 90 day(s) June, Active Sodium Chloride 0.9 % 4 ml Inhalation Twice a day for 90 day(s) May, Active predniSONE 20 MG 1 tablet Orally Once a day for 5 day(s) Active Pulse Oximeter - as directed prn during asthma exacerbati on for 99 days J45.20, J45.901 May, Active Align Prebiotic-Probiotic 5-1.25 MG-GM 1 cap Orally Daily for 90 day( s) Active Clobetasol Propionate 0.05 % 1 application to hands Ex ternally Twice a to right UE for 14 days Feb, Active Vitamin D3 1000 UNIT 1 capsule Orally Once a day for 90 day(s) Active Claritin 10 MG 1 tablet Orally Once a day for 90 day(s) Not-Taking Xopenex HFA 45 MCG/ACT 1 puff as needed Inhalation every 4 hrs f or 30 Days May, Active PROCEDURES No Information RESULTS No Results REASON FOR VISIT Arthritis MEDICAL (GENERAL) HISTORY Type Description Date Medical [...] application to hands Ex ternally Twice a to right UE for 14 days Feb, Insurance Providers Payer Name Payer Address Payer Phone Insured Name Patient Relati onship to Insured Coverage Start Date Coverage End Date [facility] INSURANCE [address] [place] [address] OVIDIO CONTRERAS
--- OUTSIDE RECORDS SUMMARY | 2020-12-27 09:33 | CCD ---
Author Author [facility] Organization [facility] Address Unknown Phone Unavailable Care Team Providers Care Hammer Heater Name Role Phone Jorge, Joselin Unavailable PROBLEMS Type Condition ICD9-CM Code HZS94-KC Code Onset Dates Condition S tatus W/U Status Risk SNOMED Code Notes Problem Slow transit constipation K59.01 Active confirmed 16328562 Problem PMS (premenstrual syndrome) N94.3 Active confirmed 22883625 Problem Mild intermittent asthma without complication J45. 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 Active confirmed 76 4493764 Problem Non-seasonal allergic rhinitis, unspecified trigger J30.89 Active confirmed 79050920 Problem Flexural eczema L20.82 Active confirmed 5709 2006 Problem Vitamin D insufficiency E55.9 Active confirmed 82844036 Problem Seasonal allergies J30.2 Active confirmed 4 88303498 Problem S/P pulmonary valve replacement Z95.2 Active confirmed 480141345317581 Problem Exacerbation of asthma, unsp ecified asthma severity, unspecified whether persistent J45.901 Active confirmed 857822750 ALLERGIES No Known Allergies ENCOUNTERS from 1996 to 2020-11-11 Encounter Location Date Provider Diagnosis [address] [phone] [place] [address] Oct, Joselin Patel Flexural eczema L20.82 IMMUNIZATIONS Vaccine Route Administration Date Status Influenza [...] Education Language: Question Answer Notes Languages spoken: Georgian Muslim: Question Answer Notes Muslim 08 Anglican Sexual Hx: Question Answer Notes Had sex [...] REASON FOR REFERRAL No Information VITAL SIGNS Weight 170.8 lbs Oct, Height 61 in Oct, BMI 32.27 kg/m2 Oct, Heart Rate 75 /min Oct, Respiratory Rate 17 /min Oct, Temperature 97.6 degrees Fahrenheit Oct, Oximetry 94 Oct, Blood pressure systolic 129 mm Hg Oct, Blood pressure diastolic 65 mm Hg Oct, MEDICATIONS Medication SIG (Take, Route, Frequency, Duration) [...] Information RESULTS No Results REASON FOR VISIT rash on arm MEDICAL (GENERAL) HISTORY Type Description Date Medical [...] Treatment Notes Treatm ent Clinical Notes Oct, Flexural eczema (ICD-10 - L20.82) Appears eczema (known hx hands as wel), start topical corticosteroid cream, clobetasol. Also limit exposure to hot water and ensure using cream based moisturizer (free of fragrance, dyes, microbeads). Use soap/water for washing hands in place of hand feeder catcher. PLAN OF TREATMENT Medication Medication Name Sig Start Date Stop Date Clobetasol Propionate 0.05 % 1 application to hands Ex ternally Twice a to right UE for 14 days Feb, Treatment Notes Assessment Notes Clinical Notes Flexural eczema Appears eczema (know n hx hands as wel), start topical corticosteroid cream, clobetasol. Also limit exposure to hot water and ensure using cream based moisturizer (free of fragrance, dyes, microbeads). Use soap/water for washing hands in place of hand feeder catcher. Next Appt Details 1 Week (if non-resolving) Reason: Insurance Providers Payer Name Payer Address Payer Phone Insured Name Patient Relati onship to Insured Coverage Start Date Coverage End Date [facility] [address] [facility] [id number] OVID[address] COTNRER[address]
--- OUTSIDE RECORDS SUMMARY | 2020-12-27 09:33 | CCD ---
Author Author [facility] Organization [facility] Address Unknown Phone Unavailable Care Team Providers Care Centrifugal Spinner Name Role Phone Jorge Joselin Unavailable PROBLEMS Type Condition ICD9-CM Code HSK63-GP Code Onset Dates Condition S tatus W/U Status Risk SNOMED Code Notes Problem Non-seasonal allergic rhinitis, unspecified trigger J30.89 Active confirmed 48303022 Problem Slow transit constipation K59.01 Active confirmed 95894993 Problem PMS (premenstrual syndrome) N94.3 Active confirmed 71761657 Problem Exacerbation of asthma, unsp ecified asthma severity, unspecified whether persistent J45.901 Active confirmed 771654667 Problem 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 20 Active confirmed 904068375 Problem Vitamin D insufficiency E55.9 Active confirmed 56581459 Problem Seasonal allergies J30.2 Active confirmed 4 85673338 Problem S/P pulmonary valve replacement Z95.2 Active confirmed [id number] ALLERGIES No Known Allergies ENCOUNTERS from 1996 to 2020-10-20 Encounter Location Date Provider Diagnosis [facility] [address] [facility] [phone] [place] [address] Oct, Joselin Patel S/P pulmonary valve replacem ent Z95.2 IMMUNIZATIONS Vaccine Route Administration Date Status Influenza [...] Education Language: Question Answer Notes Languages spoken: Citizen Of [place] Anabaptism: Question Answer Notes Anabaptism 08 Hinduism Sexual Hx: Question Answer Notes Had sex [...] Information RESULTS No Results REASON FOR VISIT Multiple refill request MEDICAL (GENERAL) HISTORY Type Description Date Medical [...] S/P pulmonary valve replacement (ICD-10 - Z95.2) PLAN OF TREATMENT Medication Medication Name Sig [...] 90 days May, Next Appt Details Provider Name:Joselin Patel, 02:00:00 PM, [address] [facility], , [place], [address], Insurance Providers Payer Name Payer Address Payer Phone Insured Name Patient Relati onship to Insured Coverage Start Date Coverage End Date [facility] [address] [facility] [id number] OVIDIO CONTRERAS
[2020-12-27] MEDS ORDERED: FEXO180T58 PO (09:36)
[2020-12-27] MEDS ORDERED: LEVA45AE (09:36)
[2020-12-27] MEDS ORDERED: ALIG4CAP PO (09:36)
[2020-12-27] MEDS ORDERED: CLOB60CR4 TD (09:36)
[2020-12-27] MEDS ORDERED: ASPI81TA26 PO (09:36)
[2020-12-27] MEDS ORDERED: OMEP-221 PO (09:36)
[2020-12-27] MEDS ORDERED: LEVA1.2519 (09:36)
[2020-12-27] MEDS ORDERED: FLUT11IN INH (09:36)
[2020-12-27] MEDS ORDERED: D31000TA2 PO (09:36)
[2020-12-27] MEDS ORDERED: FURO20TA2 PO (09:36)
--- NOTE | 2020-12-27 10:19 | REP ---
INDICATION: sob COMPARISON: 05/17/2020 TECHNIQUE: PA and lateral. FINDINGS: Mediastinum and cardiac silhouette remains stable. 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 The lung dimas demonstrate stable hyperventilation and chronic changes likely related to emphysematous disease. No acute consolidation or effusion. No definite pneumothorax. IMPRESSION: Chronic stable changes. If the patient remains symptomatic consider chest CT for further investigation. <Electronically signed by Matteo Rosario > 12/27/20 1016
--- OUTSIDE RECORDS SUMMARY | 2020-12-27 11:56 | CCD ---
Author Author [facility] Address Unknown Phone Unavailable Support Name Relationship Address Phone DISABLED Next Of Kin Unknown Unavailable SALAZAR CONTRERAS Next Of Kin [address] [place] [address] 1 [address] [place] [address] CESAR CONTRERAS [address] [place] [address] 1 [address] [place] [address] Unavailable Re-disclosure Warning The records that you [...] is protected by Article 27-F of the [facility] Public Health law. If you continue you may have access to information: Regarding HIV / AIDS; Provided by facilities licensed or operated by the [facility] Office of Mental Health; or Provided by the [facility] Office for People With Developmental Disabilities. If such information is present, then the following [facility] mandated warning applies: This information has been [...] law may result in a fine or detention sentence or both. A general authorization for the release of medical or other information is NOT sufficient authorization for further disc losure. Encounters Encounter Providers Location Date Indications Data Source(s ) [place] [address] [facility] [address] 11/12/2020 12:00:00 AM EDT eCW1 ([facility]) [place] [address] [facility] [address] 11/04/2020 12:00:00 AM EDT eCW1 ([facility]) [place] [address] [facility] [address] 10/19/2020 12:00:00 AM EDT eCW1 ([facility]) [place] [address] [facility] [address] 10/14/2020 12:00:00 AM EDT eCW1 ([facility]) [place] [address] [facility] [address] 10/13/2020 12:00:00 AM EDT eCW1 ([facility]) [place] [address] [facility] [address] 10/13/2020 12:00:00 AM EDT eCW1 ([facility]) [place] [address] [facility] [address] 10/12/2020 12:00:00 AM EDT eCW1 ([facility]) [place] [address] [facility] [address] 10/08/2020 12:00:00 AM EDT eCW1 ([facility]) [place] [address] [facility] [address] 10/06/2020 12:00:00 AM EDT eCW1 ([facility]) [place] [address] [facility] [address] 10/01/2020 12:00:00 AM EDT eCW1 ([facility]) [place] [address] [facility] [address] 09/22/2020 12:00:00 AM EDT eCW1 ([facility]) [place] [address] [facility] [address] 09/20/2020 12:00:00 AM EDT eCW1 ([facility]) [place] [address] [facility] [address] 08/02/2020 12:00:00 AM EDT eCW1 ([facility]) [place] [address] [facility] [address] 07/02/2020 12:00:00 AM EDT eCW1 ([facility]) [place] [address] [facility] [address] 05/21/2020 12:00:00 AM EDT eCW1 ([facility]) [place] [address] [facility] [address] 05/19/2020 12:00:00 AM EDT eCW1 ([facility]) [place] [address] [facility] [address] 05/18/2020 12:00:00 AM EDT eCW1 ([facility]) [place] [address] [facility] [address] 05/18/2020 12:00:00 AM EDT eCW1 ([facility]) [place] [address] [facility] [address] 05/18/2020 12:00:00 AM EDT eCW1 ([facility]) [place] [address] [facility] [address] 05/17/2020 12:00:00 AM EDT eCW1 ([facility]) [place] [address] [facility] [address] 05/17/2020 12:00:00 AM EDT eCW1 ([facility]) [place] [address] [facility] [address] 05/17/2020 12:00:00 AM EDT eCW1 ([facility]) [place] [address] [facility] [address] 05/13/2020 12:00:00 AM EDT [facility] [place] [address] [facility] [address] 05/11/2020 12:00:00 AM EDT eCW1 [facility]) [place] [address] [facility] [address] 02/25/2020 12:00:00 AM EST eCW1 [facility]) [place] [address] [facility] [address] 01/23/2020 12:00:00 AM EST eCW1 ([facility]) [place] [address] [facility] [address] 01/20/2020 12:00:00 AM EST eCW1 ([facility]) [place] [address] [facility] [address] 01/06/2020 12:00:00 AM EST eCW1 ([facility]) [place] [address] [facility] [address] 01/01/2020 12:00:00 AM EST eCW1 ([facility]) [place] [address] [facility] [address] 12/23/2019 12:00:00 AM EST eCW1 ([facility]) [place] [address] [facility] [address] 12/02/2019 12:00:00 AM EDT eCW1 ([facility]) Immunizations Vaccine Date Status Description Data Source(s) influenza, recombinant, quadrIvalent,injectable, prese rvative free 12/23/2019 10:17:00 AM EST [facility], recombinant, quadrIvalent,injectable, prese rvative free 12/23/2019 10:17:00 AM EST completed [facility] influenza, recombinant, quadrIvalent,injectable, prese rvative free 12/23/2019 10:17:00 AM EST completed [facility]CW[facility] influenza, recombinant, quadrIvalent,injectable, prese rvative free 12/23/2019 10:17:00 AM EST completed [facility]CW1 [facility] influenza, recombinant, quadrIvalent,injectable, prese rvative free 12/23/2019 10:17:00 AM EST completed [facility]CW1 [facility] influenza, recombinant, quadrIvalent,injectable, prese rvative free 12/23/2019 10:17:00 AM EST completed [facility]CW1 [facility] influenza, recombinant, quadrIvalent,injectable, prese rvative free 12/23/2019 10:17:00 AM EST completed [facility]CW1 [facility] influenza, recombinant, quadrIvalent,injectable, prese rvative free 12/23/2019 10:17:00 AM EST completed [facility]CW1 [facility] influenza, recombinant, quadrIvalent,injectable, prese rvative free 12/23/2019 10:17:00 AM EST completed eCW1 [facility] influenza, recombinant, quadrIvalent,injectable, prese rvative free 12/23/2019 10:17:00 AM EST completed [facility]CW1 [facility] influenza, recombinant, quadrIvalent,injectable, prese rvative free 12/23/2019 10:17:00 AM EST completed eCW1 [facility] influenza, recombinant, quadrIvalent,injectable, prese rvative free 12/23/2019 10:17:00 AM EST completed eCW1 [facility] influenza, recombinant, quadrIvalent,injectable, prese rvative free 12/23/2019 10:17:00 AM EST completed eCW1 [facility] influenza, recombinant, quadrIvalent,injectable, prese rvative free 12/23/2019 10:17:00 AM EST completed eCW1 [facility] influenza, recombinant, quadrIvalent,injectable, prese rvative free 12/23/2019 10:17:00 AM EST completed [facility]CW1 [facility] influenza, recombinant, quadrIvalent,injectable, prese rvative free 12/23/2019 10:17:00 AM EST completed eCW1 [facility] influenza, recombinant, quadrIvalent,injectable, prese rvative free 12/23/2019 10:17:00 AM EST completed eCW1 [facility] influenza, recombinant, quadrIvalent,injectable, prese rvative free 12/23/2019 10:17:00 AM EST completed eCW1 [facility] influenza, recombinant, quadrIvalent,injectable, prese rvative free 12/23/2019 10:17:00 AM EST completed eCW1 [facility]) influenza, recombinant, quadrIvalent,injectable, prese rvative free 12/23/2019 10:17:00 AM EST completed eCW1 [facility] influenza, recombinant, quadrIvalent,injectable, prese rvative free 12/23/2019 10:17:00 AM EST completed eCW1 [facility] influenza, recombinant, quadrIvalent,injectable, prese rvative free 12/23/2019 10:17:00 AM EST completed eCW1 [facility] influenza, recombinant, quadrIvalent,injectable, prese rvative free 12/23/2019 10:17:00 AM EST completed eCW1 [facility] influenza, recombinant, quadrIvalent,injectable, prese rvative free 12/23/2019 10:17:00 AM EST completed eCW1 [facility] influenza, recombinant, quadrIvalent,injectable, prese rvative free 12/23/2019 10:17:00 AM EST completed eCW1 [facility] influenza, recombinant, quadrIvalent,injectable, prese rvative free 12/23/2019 10:17:00 AM EST completed eCW1 [facility] influenza, recombinant, quadrIvalent,injectable, prese rvative free 12/23/2019 10:17:00 AM EST completed eCW1 [facility] influenza, recombinant, quadrIvalent,injectable, prese rvative free 12/23/2019 10:17:00 AM EST completed eCW1 [facility] influenza, recombinant, quadrIvalent,injectable, prese rvative free 12/23/2019 10:17:00 AM EST completed eCW1 [facility] influenza, recombinant, quadrIvalent,injectable, prese rvative free 12/23/2019 10:17:00 AM EST completed [facility] Medications Medication Brand Name Start Date Product Form Dose Route Admi nistrative Instructions Pharmacy Instructions Status Indications Reaction Description Data Source(s) Omeprazole 40 MG Delayed Release Oral Capsule Omeprazole 40 MG 05/21/2020 12:00:00 AM EDT active Omeprazo le 40 MG eCW1 ([facility]) Omeprazole 20 MG Delayed Release Oral Capsule Omeprazole 20 MG 05/21/2020 12:00:00 AM EDT active Omeprazo le 20 MG eCW1 ([facility]) Omeprazole 40 MG Delayed Release Oral Capsule Omeprazole 40 MG 05/21/2020 12:00:00 AM EDT active Omeprazo le 40 MG eCW1 ([facility]) Omeprazole 40 MG Delayed Release Oral Capsule Omeprazole 40 MG 05/21/2020 12:00:00 AM EDT active Omeprazo le 40 MG eCW1 ([facility]) Omeprazole 40 MG Delayed Release Oral Capsule Omeprazole 40 MG 05/21/2020 12:00:00 AM EDT active Omeprazo le 40 MG eCW1 ([facility]) Omeprazole 40 MG Delayed Release Oral Capsule Omeprazole 40 MG 05/21/2020 12:00:00 AM EDT active Omeprazo le 40 MG eCW1 ([facility]) Omeprazole 40 MG Delayed Release Oral Capsule Omeprazole 40 MG 05/21/2020 12:00:00 AM EDT active Omeprazo le 40 MG eCW1 ([facility]) Omeprazole 20 MG Delayed Release Oral Capsule Omeprazole 20 MG 05/21/2020 12:00:00 AM EDT active Omeprazo le 20 MG eCW1 ([facility]) Omeprazole 20 MG Delayed Release Oral Capsule Omeprazole 20 MG 05/21/2020 12:00:00 AM EDT active Omeprazo le 20 MG eCW1 ([facility]) Omeprazole 20 MG Delayed Release Oral Capsule Omeprazole 20 MG 05/21/2020 12:00:00 AM EDT active Omeprazo le 20 MG eCW1 ([facility]) Omeprazole 40 MG Delayed Release Oral Capsule Omeprazole 40 MG 05/21/2020 12:00:00 AM EDT active Omeprazo le 40 MG eCW1 ([facility]) Omeprazole 20 MG Delayed Release Oral Capsule Omeprazole 20 MG 05/21/2020 12:00:00 AM EDT active Omeprazo le 20 MG eCW1 ([facility]) Omeprazole 20 MG Delayed Release Oral Capsule Omeprazole 20 MG 05/21/2020 12:00:00 AM EDT active Omeprazo le 20 MG eCW1 ([facility]) Omeprazole 40 MG Delayed Release Oral Capsule Omeprazole 40 MG 05/21/2020 12:00:00 AM EDT active Omeprazo le 40 MG eCW1 ([facility]) Omeprazole 20 MG Delayed Release Oral Capsule Omeprazole 20 MG 05/21/2020 12:00:00 AM EDT active Omeprazo le 20 MG eCW1 ([facility]) Pulse Oximeter - Pulse Oximeter - 05/20/2020 12:00:00 AM EDT active Pulse Oximeter - eCW1 ([facility]) Pulse Oximeter - Pulse Oximeter - 05/20/2020 12:00:00 AM EDT active Pulse Oximeter - eCW1 ([facility]) Pulse Oximeter - Pulse Oximeter - 05/20/2020 12:00:00 AM EDT active Pulse Oximeter - eCW1 ([facility]) Pulse Oximeter - Pulse Oximeter - 05/20/2020 12:00:00 AM EDT active Pulse Oximeter - eCW1 ([facility]) Pulse Oximeter - Pulse Oximeter - 05/20/2020 12:00:00 AM EDT active Pulse Oximeter - eCW1 ([facility]) Pulse Oximeter - Pulse Oximeter - 05/20/2020 12:00:00 AM EDT active Pulse Oximeter - eCW1 ([facility]) Pulse Oximeter - Pulse Oximeter - 05/20/2020 12:00:00 AM EDT active Pulse Oximeter - eCW1 ([facility]) Pulse Oximeter - Pulse Oximeter - 05/20/2020 12:00:00 AM EDT active Pulse Oximeter - eCW1 ([facility]) Pulse Oximeter - Pulse Oximeter - 05/20/2020 12:00:00 AM EDT active Pulse Oximeter - eCW1 ([facility]) Pulse Oximeter - Pulse Oximeter - 05/20/2020 12:00:00 AM EDT active Pulse Oximeter - eCW1 ([facility]) Pulse Oximeter - Pulse Oximeter - 05/20/2020 12:00:00 AM EDT active Pulse Oximeter - eCW1 ([facility]) Pulse Oximeter - Pulse Oximeter - 05/20/2020 12:00:00 AM EDT active Pulse Oximeter - eCW1 ([facility]) Pulse Oximeter - Pulse Oximeter - 05/20/2020 12:00:00 AM EDT active Pulse Oximeter - eCW1 ([facility]) Pulse Oximeter - Pulse Oximeter - 05/20/2020 12:00:00 AM EDT active Pulse Oximeter - eCW1 ([facility]) Pulse Oximeter - Pulse Oximeter - 05/20/2020 12:00:00 AM EDT active Pulse Oximeter - eCW1 ([facility]) Pulse Oximeter - Pulse Oximeter - 05/20/2020 12:00:00 AM EDT active Pulse Oximeter - eCW1 ([facility]) Pulse Oximeter - Pulse Oximeter - 05/20/2020 12:00:00 AM EDT active Pulse Oximeter - eCW1 ([facility]) Sodium Chloride 0.154 MEQ/ML Inhalant Solution Sodium Chloride 0.9 % Sodium Chloride 0.9 % 05/18/2020 12:00:00 AM EDT 4.0 {ml} a ctive Sodium Chloride 0.9 % eCW1 ([facility]) Sodium Chloride 0.154 MEQ/ML Inhalant Solution Sodium Chloride 0.9 % Sodium Chloride 0.9 % 05/18/2020 12:00:00 AM EDT 4.0 {ml} a ctive Sodium Chloride 0.9 % eCW1 ([facility]) 200 ACTUAT Levalbuterol 0.045 MG/ACTUAT Metered Dose Inhaler [Xopenex] Xopenex HFA 45 MCG/ACT Xopenex HFA 45 MCG/ACT 05/18/2020 12:00:00 AM EDT 1.0 {puff_as_needed} active Xopenex HFA 45 MCG/ACT eCW1 ([facility]) 200 ACTUAT Levalbuterol 0.045 MG/ACTUAT Metered Dose Inhaler [Xopenex] Xopenex HFA 45 MCG/ACT Xopenex HFA 45 MCG/ACT 05/18/2020 12:00:00 AM EDT 1.0 {puff_as_needed} active Xopenex HFA 45 MCG/ACT eCW1 ([facility]) 200 ACTUAT Levalbuterol 0.045 MG/ACTUAT Metered Dose Inhaler [Xopenex] Xopenex HFA 45 MCG/ACT Xopenex HFA 45 MCG/ACT 05/18/2020 12:00:00 AM EDT 1.0 {puff_as_needed} active Xopenex HFA 45 MCG/ACT eCW1 ([facility]) 200 ACTUAT Levalbuterol 0.045 MG/ACTUAT Metered Dose Inhaler [Xopenex] Xopenex HFA 45 MCG/ACT Xopenex HFA 45 MCG/ACT 05/18/2020 12:00:00 AM EDT 1.0 {puff_as_needed} active Xopenex HFA 45 MCG/ACT eCW1 ([facility]) 200 ACTUAT Levalbuterol 0.045 MG/ACTUAT Metered Dose Inhaler [Xopenex] Xopenex HFA 45 MCG/ACT Xopenex HFA 45 MCG/ACT 05/18/2020 12:00:00 AM EDT 1.0 {puff_as_needed} active Xopenex HFA 45 MCG/ACT eCW1 ([facility]) Sodium Chloride 0.154 MEQ/ML Inhalant Solution Sodium Chloride 0.9 % Sodium Chloride 0.9 % 05/18/2020 12:00:00 AM EDT 4.0 {ml} a ctive Sodium Chloride 0.9 % eCW1 ([facility]) Sodium Chloride 0.154 MEQ/ML Inhalant Solution Sodium Chloride 0.9 % Sodium Chloride 0.9 % 05/18/2020 12:00:00 AM EDT 4.0 {ml} a ctive Sodium Chloride 0.9 % eCW1 ([facility]) Sodium Chloride 0.154 MEQ/ML Inhalant Solution Sodium Chloride 0.9 % Sodium Chloride 0.9 % 05/18/2020 12:00:00 AM EDT 4.0 {ml} a ctive Sodium Chloride 0.9 % eCW1 ([facility]) Sodium Chloride 0.154 MEQ/ML Inhalant Solution Sodium Chloride 0.9 % Sodium Chloride 0.9 % 05/18/2020 12:00:00 AM EDT 4.0 {ml} a ctive Sodium Chloride 0.9 % eCW1 ([facility]) Sodium Chloride 0.154 MEQ/ML Inhalant Solution Sodium Chloride 0.9 % Sodium Chloride 0.9 % 05/18/2020 12:00:00 AM EDT 4.0 {ml} a ctive Sodium Chloride 0.9 % eCW1 ([facility]) 200 ACTUAT Levalbuterol 0.045 MG/ACTUAT Metered Dose Inhaler [Xopenex] Xopenex HFA 45 MCG/ACT Xopenex HFA 45 MCG/ACT 05/18/2020 12:00:00 AM EDT 1.0 {puff_as_needed} active Xopenex HFA 45 MCG/ACT eCW1 ([facility]) Sodium Chloride 0.154 MEQ/ML Inhalant Solution Sodium Chloride 0.9 % Sodium Chloride 0.9 % 05/18/2020 12:00:00 AM EDT 4.0 {ml} a ctive Sodium Chloride 0.9 % eCW1 ([facility]) Sodium Chloride 0.154 MEQ/ML Inhalant Solution Sodium Chloride 0.9 % Sodium Chloride 0.9 % 05/18/2020 12:00:00 AM EDT 4.0 {ml} a ctive Sodium Chloride 0.9 % eCW1 ([facility]) Sodium Chloride 0.154 MEQ/ML Inhalant Solution Sodium Chloride 0.9 % Sodium Chloride 0.9 % 05/18/2020 12:00:00 AM EDT 4.0 {ml} a ctive Sodium Chloride 0.9 % eCW1 ([facility]) Sodium Chloride 0.154 MEQ/ML Inhalant Solution Sodium Chloride 0.9 % Sodium Chloride 0.9 % 05/18/2020 12:00:00 AM EDT 4.0 {ml} a ctive Sodium Chloride 0.9 % eCW1 ([facility]) 200 ACTUAT Levalbuterol 0.045 MG/ACTUAT Metered Dose Inhaler [Xopenex] Xopenex HFA 45 MCG/ACT Xopenex HFA 45 MCG/ACT 05/18/2020 12:00:00 AM EDT 1.0 {puff_as_needed} active Xopenex HFA 45 MCG/ACT eCW1 ([facility]) 200 ACTUAT Levalbuterol 0.045 MG/ACTUAT Metered Dose Inhaler [Xopenex] Xopenex HFA 45 MCG/ACT Xopenex HFA 45 MCG/ACT 05/18/2020 12:00:00 AM EDT 1.0 {puff_as_needed} active Xopenex HFA 45 MCG/ACT eCW1 ([facility]) 200 ACTUAT Levalbuterol 0.045 MG/ACTUAT Metered Dose Inhaler [Xopenex] Xopenex HFA 45 MCG/ACT Xopenex HFA 45 MCG/ACT 05/18/2020 12:00:00 AM EDT 1.0 {puff_as_needed} active Xopenex HFA 45 MCG/ACT eCW1 ([facility]) Sodium Chloride 0.154 MEQ/ML Inhalant Solution Sodium Chloride 0.9 % Sodium Chloride 0.9 % 05/18/2020 12:00:00 AM EDT 4.0 {ml} a ctive Sodium Chloride 0.9 % eCW1 ([facility]) Sodium Chloride 0.154 MEQ/ML Inhalant Solution Sodium Chloride 0.9 % Sodium Chloride 0.9 % 05/18/2020 12:00:00 AM EDT 4.0 {ml} a ctive Sodium Chloride 0.9 % eCW1 ([facility]) 200 ACTUAT Levalbuterol 0.045 MG/ACTUAT Metered Dose Inhaler [Xopenex] Xopenex HFA 45 MCG/ACT Xopenex HFA 45 MCG/ACT 05/18/2020 12:00:00 AM EDT 1.0 {puff_as_needed} active Xopenex HFA 45 MCG/ACT eCW1 ([facility]) 200 ACTUAT Levalbuterol 0.045 MG/ACTUAT Metered Dose Inhaler [Xopenex] Xopenex HFA 45 MCG/ACT Xopenex HFA 45 MCG/ACT 05/18/2020 12:00:00 AM EDT 1.0 {puff_as_needed} active Xopenex HFA 45 MCG/ACT eCW1 ([facility]) 200 ACTUAT Levalbuterol 0.045 MG/ACTUAT Metered Dose Inhaler [Xopenex] Xopenex HFA 45 MCG/ACT Xopenex HFA 45 MCG/ACT 05/18/2020 12:00:00 AM EDT 1.0 {puff_as_needed} active Xopenex HFA 45 MCG/ACT eCW1 ([facility]) 200 ACTUAT Levalbuterol 0.045 MG/ACTUAT Metered Dose Inhaler [Xopenex] Xopenex HFA 45 MCG/ACT Xopenex HFA 45 MCG/ACT 05/18/2020 12:00:00 AM EDT 1.0 {puff_as_needed} active Xopenex HFA 45 MCG/ACT eCW1 ([facility]) Sodium Chloride 0.154 MEQ/ML Inhalant Solution Sodium Chloride 0.9 % Sodium Chloride 0.9 % 05/18/2020 12:00:00 AM EDT 4.0 {ml} a ctive Sodium Chloride 0.9 % eCW1 ([facility]) Sodium Chloride 0.154 MEQ/ML Inhalant Solution Sodium Chloride 0.9 % Sodium Chloride 0.9 % 05/18/2020 12:00:00 AM EDT 4.0 {ml} a ctive Sodium Chloride 0.9 % eCW1 ([facility]) Sodium Chloride 0.154 MEQ/ML Inhalant Solution Sodium Chloride 0.9 % Sodium Chloride 0.9 % 05/18/2020 12:00:00 AM EDT 4.0 {ml} a ctive Sodium Chloride 0.9 % eCW1 ([facility]) Sodium Chloride 0.154 MEQ/ML Inhalant Solution Sodium Chloride 0.9 % Sodium Chloride 0.9 % 05/18/2020 12:00:00 AM EDT 4.0 {ml} a ctive Sodium Chloride 0.9 % eCW1 ([facility]) 200 ACTUAT Levalbuterol 0.045 MG/ACTUAT Metered Dose Inhaler [Xopenex] Xopenex HFA 45 MCG/ACT Xopenex HFA 45 MCG/ACT 05/18/2020 12:00:00 AM EDT 1.0 {puff_as_needed} active Xopenex HFA 45 MCG/ACT eCW1 ([facility]) 200 ACTUAT Levalbuterol 0.045 MG/ACTUAT Metered Dose Inhaler [Xopenex] Xopenex HFA 45 MCG/ACT Xopenex HFA 45 MCG/ACT 05/18/2020 12:00:00 AM EDT 1.0 {puff_as_needed} active Xopenex HFA 45 MCG/ACT eCW1 ([facility]) Sodium Chloride 0.154 MEQ/ML Inhalant Solution Sodium Chloride 0.9 % Sodium Chloride 0.9 % 05/18/2020 12:00:00 AM EDT 4.0 {ml} a ctive Sodium Chloride 0.9 % eCW1 ([facility]) Sodium Chloride 0.154 MEQ/ML Inhalant Solution Sodium Chloride 0.9 % Sodium Chloride 0.9 % 05/18/2020 12:00:00 AM EDT 4.0 {ml} a ctive Sodium Chloride 0.9 % eCW1 ([facility]) 200 ACTUAT Levalbuterol 0.045 MG/ACTUAT Metered Dose Inhaler [Xopenex] Xopenex HFA 45 MCG/ACT Xopenex HFA 45 MCG/ACT 05/18/2020 12:00:00 AM EDT 1.0 {puff_as_needed} active Xopenex HFA 45 MCG/ACT eCW1 ([facility]) 200 ACTUAT Levalbuterol 0.045 MG/ACTUAT Metered Dose Inhaler [Xopenex] Xopenex HFA 45 MCG/ACT Xopenex HFA 45 MCG/ACT 05/18/2020 12:00:00 AM EDT 1.0 {puff_as_needed} active Xopenex HFA 45 MCG/ACT eCW1 ([facility]) Sodium Chloride 0.154 MEQ/ML Inhalant Solution Sodium Chloride 0.9 % Sodium Chloride 0.9 % 05/18/2020 12:00:00 AM EDT 4.0 {ml} a ctive Sodium Chloride 0.9 % eCW1 ([facility]) 200 ACTUAT Levalbuterol 0.045 MG/ACTUAT Metered Dose Inhaler [Xopenex] Xopenex HFA 45 MCG/ACT Xopenex HFA 45 MCG/ACT 05/18/2020 12:00:00 AM EDT 1.0 {puff_as_needed} active Xopenex HFA 45 MCG/ACT eCW1 ([facility]) 200 ACTUAT Levalbuterol 0.045 MG/ACTUAT Metered Dose Inhaler [Xopenex] Xopenex HFA 45 MCG/ACT Xopenex HFA 45 MCG/ACT 05/18/2020 12:00:00 AM EDT 1.0 {puff_as_needed} active Xopenex HFA 45 MCG/ACT eCW1 ([facility]) 200 ACTUAT Levalbuterol 0.045 MG/ACTUAT Metered Dose Inhaler [Xopenex] Xopenex HFA 45 MCG/ACT Xopenex HFA 45 MCG/ACT 05/18/2020 12:00:00 AM EDT 1.0 {puff_as_needed} active Xopenex HFA 45 MCG/ACT eCW1 ([facility]) Prednisone 20 MG Oral Tablet PredniSONE 20 MG PredniSONE 20 MG 05/17/2020 12:00:00 AM EDT 1.0 {tablet} active Pr edniSONE 20 MG eCW1 ([facility]) Prednisone 20 MG Oral Tablet PredniSONE 20 MG PredniSONE 20 MG 05/17/2020 12:00:00 AM EDT 1.0 {tablet} active Pr edniSONE 20 MG eCW1 ([facility]) Prednisone 20 MG Oral Tablet PredniSONE 20 MG PredniSONE 20 MG 05/17/2020 12:00:00 AM EDT 1.0 {tablet} active Pr edniSONE 20 MG eCW1 (Formerly [facility]) Prednisone 20 MG Oral Tablet PredniSONE 20 MG PredniSONE 20 MG 05/17/2020 12:00:00 AM EDT 1.0 {tablet} active Pr edniSONE 20 MG eCW1 (Formerly [facility]) Prednisone 20 MG Oral Tablet PredniSONE 20 MG PredniSONE 20 MG 05/17/2020 12:00:00 AM EDT 1.0 {tablet} active Pr edniSONE 20 MG eCW1 (Formerly [facility]) Prednisone 20 MG Oral Tablet PredniSONE 20 MG PredniSONE 20 MG 05/17/2020 12:00:00 AM EDT 1.0 {tablet} active Pr edniSONE 20 MG eCW1 (Formerly [facility]) Prednisone 20 MG Oral Tablet PredniSONE 20 MG PredniSONE 20 MG 05/17/2020 12:00:00 AM EDT 1.0 {tablet} active Pr edniSONE 20 MG eCW1 (Formerly [facility]) Prednisone 20 MG Oral Tablet PredniSONE 20 MG PredniSONE 20 MG 05/17/2020 12:00:00 AM EDT 1.0 {tablet} active Pr edniSONE 20 MG eCW1 (Formerly [facility]) Clobetasol Propionate 0.5 MG/ML Topical Cream Clobetas ol Propionate 0.05 % Clobetasol Propionate 0.05 % 02/27/2020 12:00:00 AM EST active Clobetasol Propionate 0.05 % eCW1 (Formerly [facility]) Clobetasol Propionate 0.5 MG/ML Topical Cream Clobetas ol Propionate 0.05 % Clobetasol Propionate 0.05 % 02/27/2020 12:00:00 AM EST active Clobetasol Propionate 0.05 % eCW1 (Formerly [facility]) Clobetasol Propionate 0.5 MG/ML Topical Cream Clobetas ol Propionate 0.05 % Clobetasol Propionate 0.05 % 02/27/2020 12:00:00 AM EST active Clobetasol Propionate 0.05 % eCW1 ([facility]ly [facility]) Clobetasol Propionate 0.5 MG/ML Topical Cream Clobetas ol Propionate 0.05 % Clobetasol Propionate 0.05 % 02/27/2020 12:00:00 AM EST active Clobetasol Propionate 0.05 % eCW1 ([facility]ly [facility]) Clobetasol Propionate 0.5 MG/ML Topical Cream Clobetas ol Propionate 0.05 % Clobetasol Propionate 0.05 % 02/27/2020 12:00:00 AM EST active Clobetasol Propionate 0.05 % eCW1 ([facility]) Clobetasol Propionate 0.5 MG/ML Topical Cream Clobetas ol Propionate 0.05 % Clobetasol Propionate 0.05 % 02/27/2020 12:00:00 AM EST active Clobetasol Propionate 0.05 % eCW1 ([facility]) Clobetasol Propionate 0.5 MG/ML Topical Cream Clobetas ol Propionate 0.05 % Clobetasol Propionate 0.05 % 02/27/2020 12:00:00 AM EST active Clobetasol Propionate 0.05 % eCW1 ([facility]) Clobetasol Propionate 0.5 MG/ML Topical Cream Clobetas ol Propionate 0.05 % Clobetasol Propionate 0.05 % 02/27/2020 12:00:00 AM EST active Clobetasol Propionate 0.05 % eCW1 ([facility]) Clobetasol Propionate 0.5 MG/ML Topical Cream Clobetas ol Propionate 0.05 % Clobetasol Propionate 0.05 % 02/27/2020 12:00:00 AM EST active Clobetasol Propionate 0.05 % eCW1 ([facility]) Clobetasol Propionate 0.5 MG/ML Topical Cream Clobetas ol Propionate 0.05 % Clobetasol Propionate 0.05 % 02/27/2020 12:00:00 AM EST active Clobetasol Propionate 0.05 % eCW1 ([facility]) Clobetasol Propionate 0.5 MG/ML Topical Cream Clobetas ol Propionate 0.05 % Clobetasol Propionate 0.05 % 02/27/2020 12:00:00 AM EST active Clobetasol Propionate 0.05 % eCW1 ([facility]) Clobetasol Propionate 0.5 MG/ML Topical Cream Clobetas ol Propionate 0.05 % Clobetasol Propionate 0.05 % 02/27/2020 12:00:00 AM EST active Clobetasol Propionate 0.05 % eCW1 ([facility]) Clobetasol Propionate 0.5 MG/ML Topical Cream Clobetas ol Propionate 0.05 % Clobetasol Propionate 0.05 % 02/27/2020 12:00:00 AM EST active Clobetasol Propionate 0.05 % eCW1 ([facility]) Clobetasol Propionate 0.5 MG/ML Topical Cream Clobetas ol Propionate 0.05 % Clobetasol Propionate 0.05 % 02/27/2020 12:00:00 AM EST active Clobetasol Propionate 0.05 % eCW1 ([facility]) Clobetasol Propionate 0.5 MG/ML Topical Cream Clobetas ol Propionate 0.05 % Clobetasol Propionate 0.05 % 02/27/2020 12:00:00 AM EST active Clobetasol Propionate 0.05 % eCW1 ([facility]) Clobetasol Propionate 0.5 MG/ML Topical Cream Clobetas ol Propionate 0.05 % Clobetasol Propionate 0.05 % 02/27/2020 12:00:00 AM EST active Clobetasol Propionate 0.05 % eCW1 ([facility]) Clobetasol Propionate 0.5 MG/ML Topical Cream Clobetas ol Propionate 0.05 % Clobetasol Propionate 0.05 % 02/27/2020 12:00:00 AM EST active Clobetasol Propionate 0.05 % eCW1 ([facility]) Clobetasol Propionate 0.5 MG/ML Topical Cream Clobetas ol Propionate 0.05 % Clobetasol Propionate 0.05 % 02/27/2020 12:00:00 AM EST active Clobetasol Propionate 0.05 % eCW1 ([facility]) Clobetasol Propionate 0.5 MG/ML Topical Cream Clobetas ol Propionate 0.05 % Clobetasol Propionate 0.05 % 02/27/2020 12:00:00 AM EST active Clobetasol Propionate 0.05 % eCW1 ([facility]) Clobetasol Propionate 0.5 MG/ML Topical Cream Clobetas ol Propionate 0.05 % Clobetasol Propionate 0.05 % 02/27/2020 12:00:00 AM EST active Clobetasol Propionate 0.05 % eCW1 ([facility]) Clobetasol Propionate 0.5 MG/ML Topical Cream Clobetas ol Propionate 0.05 % Clobetasol Propionate 0.05 % 02/27/2020 12:00:00 AM EST active Clobetasol Propionate 0.05 % eCW1 ([facility]) Clobetasol Propionate 0.5 MG/ML Topical Cream Clobetas ol Propionate 0.05 % Clobetasol Propionate 0.05 % 02/27/2020 12:00:00 AM EST active Clobetasol Propionate 0.05 % eCW1 ([facility]) Clobetasol Propionate 0.5 MG/ML Topical Cream Clobetas ol Propionate 0.05 % Clobetasol Propionate 0.05 % 02/27/2020 12:00:00 AM EST active Clobetasol Propionate 0.05 % eCW1 ([facility]) Clobetasol Propionate 0.5 MG/ML Topical Cream Clobetas ol Propionate 0.05 % Clobetasol Propionate 0.05 % 02/27/2020 12:00:00 AM EST active Clobetasol Propionate 0.05 % eCW1 ([facility]) Clobetasol Propionate 0.5 MG/ML Topical Cream Clobetas ol Propionate 0.05 % Clobetasol Propionate 0.05 % 02/27/2020 12:00:00 AM EST active Clobetasol Propionate 0.05 % eCW1 ([facility]) Levalbuterol 0.417 MG/ML Inhalant Solution Levalbutero l HCl 1.25 MG/3ML Levalbuterol HCl 1.25 MG/3ML 12/02/2019 12:00:00 AM EDT 3.0 {ml} active Levalbuterol HCl 1.25 MG/3ML eCW1 ([facility]) Levalbuterol 0.417 MG/ML Inhalant Solution Levalbutero l HCl 1.25 MG/3ML Levalbuterol HCl 1.25 MG/3ML 12/02/2019 12:00:00 AM EDT 3.0 {ml} active Levalbuterol HCl 1.25 MG/3ML eCW1 ([facility]) Levalbuterol 0.417 MG/ML Inhalant Solution Levalbutero l HCl 1.25 MG/3ML Levalbuterol HCl 1.25 MG/3ML 12/02/2019 12:00:00 AM EDT 3.0 {ml} active Levalbuterol HCl 1.25 MG/3ML eCW1 ([facility]) Levalbuterol 0.417 MG/ML Inhalant Solution Levalbutero l HCl 1.25 MG/3ML Levalbuterol HCl 1.25 MG/3ML 12/02/2019 12:00:00 AM EDT 3.0 {ml} active Levalbuterol HCl 1.25 MG/3ML eCW1 ([facility]) Levalbuterol 0.417 MG/ML Inhalant Solution Levalbutero l HCl 1.25 MG/3ML Levalbuterol HCl 1.25 MG/3ML 12/02/2019 12:00:00 AM EDT 3.0 {ml} active Levalbuterol HCl 1.25 MG/3ML eCW1 ([facility]) Levalbuterol 0.417 MG/ML Inhalant Solution Levalbutero l HCl 1.25 MG/3ML Levalbuterol HCl 1.25 MG/3ML 12/02/2019 12:00:00 AM EDT 3.0 {ml} active Levalbuterol HCl 1.25 MG/3ML eCW1 ([facility]) Levalbuterol 0.417 MG/ML Inhalant Solution Levalbutero l HCl 1.25 MG/3ML Levalbuterol HCl 1.25 MG/3ML 12/02/2019 12:00:00 AM EDT 3.0 {ml} active Levalbuterol HCl 1.25 MG/3ML eCW1 ([facility]) Levalbuterol 0.417 MG/ML Inhalant Solution Levalbutero l HCl 1.25 MG/3ML Levalbuterol HCl 1.25 MG/3ML 12/02/2019 12:00:00 AM EDT 3.0 {ml} active Levalbuterol HCl 1.25 MG/3ML eCW1 ([facility]) Levalbuterol 0.417 MG/ML Inhalant Solution Levalbutero l HCl 1.25 MG/3ML Levalbuterol HCl 1.25 MG/3ML 12/02/2019 12:00:00 AM EDT 3.0 {ml} active Levalbuterol HCl 1.25 MG/3ML eCW1 ([facility]) Levalbuterol 0.417 MG/ML Inhalant Solution Levalbutero l HCl 1.25 MG/3ML Levalbuterol HCl 1.25 MG/3ML 12/02/2019 12:00:00 AM EDT 3.0 {ml} active Levalbuterol HCl 1.25 MG/3ML eCW1 ([facility]) Levalbuterol 0.417 MG/ML Inhalant Solution Levalbutero l HCl 1.25 MG/3ML Levalbuterol HCl 1.25 MG/3ML 12/02/2019 12:00:00 AM EDT 3.0 {ml} active Levalbuterol HCl 1.25 MG/3ML eCW1 ([facility]) Levalbuterol 0.417 MG/ML Inhalant Solution Levalbutero l HCl 1.25 MG/3ML Levalbuterol HCl 1.25 MG/3ML 12/02/2019 12:00:00 AM EDT 3.0 {ml} active Levalbuterol HCl 1.25 MG/3ML eCW1 ([facility]) Levalbuterol 0.417 MG/ML Inhalant Solution Levalbutero l HCl 1.25 MG/3ML Levalbuterol HCl 1.25 MG/3ML 12/02/2019 12:00:00 AM EDT 3.0 {ml} active Levalbuterol HCl 1.25 MG/3ML eCW1 ([facility]) Levalbuterol 0.417 MG/ML Inhalant Solution Levalbutero l HCl 1.25 MG/3ML Levalbuterol HCl 1.25 MG/3ML 12/02/2019 12:00:00 AM EDT 3.0 {ml} active Levalbuterol HCl 1.25 MG/3ML eCW1 ([facility]) Levalbuterol 0.417 MG/ML Inhalant Solution Levalbutero l HCl 1.25 MG/3ML Levalbuterol HCl 1.25 MG/3ML 12/02/2019 12:00:00 AM EDT 3.0 {ml} active Levalbuterol HCl 1.25 MG/3ML eCW1 ([facility]) Levalbuterol 0.417 MG/ML Inhalant Solution Levalbutero l HCl 1.25 MG/3ML Levalbuterol HCl 1.25 MG/3ML 12/02/2019 12:00:00 AM EDT 3.0 {ml} active Levalbuterol HCl 1.25 MG/3ML eCW1 ([facility]) Levalbuterol 0.417 MG/ML Inhalant Solution Levalbutero l HCl 1.25 MG/3ML Levalbuterol HCl 1.25 MG/3ML 12/02/2019 12:00:00 AM EDT 3.0 {ml} active Levalbuterol HCl 1.25 MG/3ML eCW1 ([facility]) Levalbuterol 0.417 MG/ML Inhalant Solution Levalbutero l HCl 1.25 MG/3ML Levalbuterol HCl 1.25 MG/3ML 12/02/2019 12:00:00 AM EDT 3.0 {ml} active Levalbuterol HCl 1.25 MG/3ML eCW1 ([facility]) Levalbuterol 0.417 MG/ML Inhalant Solution Levalbutero l HCl 1.25 MG/3ML Levalbuterol HCl 1.25 MG/3ML 12/02/2019 12:00:00 AM EDT 3.0 {ml} active Levalbuterol HCl 1.25 MG/3ML eCW1 ([facility]) Levalbuterol 0.417 MG/ML Inhalant Solution Levalbutero l HCl 1.25 MG/3ML Levalbuterol HCl 1.25 MG/3ML 12/02/2019 12:00:00 AM EDT 3.0 {ml} active Levalbuterol HCl 1.25 MG/3ML eCW1 ([facility]) Levalbuterol 0.417 MG/ML Inhalant Solution Levalbutero l HCl 1.25 MG/3ML Levalbuterol HCl 1.25 MG/3ML 12/02/2019 12:00:00 AM EDT 3.0 {ml} active Levalbuterol HCl 1.25 MG/3ML eCW1 ([facility]) Levalbuterol 0.417 MG/ML Inhalant Solution Levalbutero l HCl 1.25 MG/3ML Levalbuterol HCl 1.25 MG/3ML 12/02/2019 12:00:00 AM EDT 3.0 {ml} active Levalbuterol HCl 1.25 MG/3ML eCW1 ([facility]) Levalbuterol 0.417 MG/ML Inhalant Solution Levalbutero l HCl 1.25 MG/3ML Levalbuterol HCl 1.25 MG/3ML 12/02/2019 12:00:00 AM EDT 3.0 {ml} active Levalbuterol HCl 1.25 MG/3ML eCW1 ([facility]) Levalbuterol 0.417 MG/ML Inhalant Solution Levalbutero l HCl 1.25 MG/3ML Levalbuterol HCl 1.25 MG/3ML 12/02/2019 12:00:00 AM EDT 3.0 {ml} active Levalbuterol HCl 1.25 MG/3ML eCW1 ([facility]) Levalbuterol 0.417 MG/ML Inhalant Solution Levalbutero l HCl 1.25 MG/3ML Levalbuterol HCl 1.25 MG/3ML 12/02/2019 12:00:00 AM EDT 3.0 {ml} active Levalbuterol HCl 1.25 MG/3ML eCW1 ([facility]) Levalbuterol 0.417 MG/ML Inhalant Solution Levalbutero l HCl 1.25 MG/3ML Levalbuterol HCl 1.25 MG/3ML 12/02/2019 12:00:00 AM EDT 3.0 {ml} active Levalbuterol HCl 1.25 MG/3ML eCW1 ([facility]) Levalbuterol 0.417 MG/ML Inhalant Solution Levalbutero l HCl 1.25 MG/3ML Levalbuterol HCl 1.25 MG/3ML 12/02/2019 12:00:00 AM EDT 3.0 {ml} active Levalbuterol HCl 1.25 MG/3ML eCW1 ([facility]) Levalbuterol 0.417 MG/ML Inhalant Solution Levalbutero l HCl 1.25 MG/3ML Levalbuterol HCl 1.25 MG/3ML 12/02/2019 12:00:00 AM EDT 3.0 {ml} active Levalbuterol HCl 1.25 MG/3ML eCW1 ([facility]) Levalbuterol 0.417 MG/ML Inhalant Solution Levalbutero l HCl 1.25 MG/3ML Levalbuterol HCl 1.25 MG/3ML 12/02/2019 12:00:00 AM EDT 3.0 {ml} active Levalbuterol HCl 1.25 MG/3ML eCW1 ([facility]) Levalbuterol 0.417 MG/ML Inhalant Solution Levalbutero l HCl 1.25 MG/3ML Levalbuterol HCl 1.25 MG/3ML 12/02/2019 12:00:00 AM EDT 3.0 {ml} active Levalbuterol HCl 1.25 MG/3ML eCW1 ([facility]) Levalbuterol 0.417 MG/ML Inhalant Solution Levalbutero l HCl 1.25 MG/3ML Levalbuterol HCl 1.25 MG/3ML 12/02/2019 12:00:00 AM EDT 3.0 {ml} active Levalbuterol HCl 1.25 MG/3ML eCW1 ([facility]) Insurance Providers Payer name Policy type / Coverage type Policy ID Covered republican ID Covered republican's relationship to ocampo Policy [place] Plan Information [facility] [id number] [facility] [id number] Problems, Conditions, and Diagnoses Code Display Name Description Problem Type Effective Dates Data Source(s) L20.82 [id number] Flexural eczema Problem 11/04/2020 12:00:00 AM EDT eCW1 ([facility]) D82.1 [id number] DiGeorge syndrome Problem 08/02/2020 12:00:0 0 AM EDT eCW1 ([facility]) J45.901 [id number] Exacerbation of asth ma, unspecified asthma severity, unspecified whether persistent Problem 05/17/2020 12:00:00 AM EDT eC W1 ([facility]) Z95.2 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 and reported by [id number] ID Date Data Source [id number] 05/17/2020 12:26:00 PM EDT [facility] Name Value Range Interpretation Code Description Data Arpita rce(s) Supporting Document(s) SARS COVID ANTIGEN NEGATIVE [facility] This lab was ordered by [facility] nd reported by [facility]. ID Date Data Source LUCINDA COVID AG (Point of Care) 05/17/2020 12:00:00 AM EDT eC W1 ([facility]) Name Value Range Interpretation Code Description Data Arpita rce(s) Supporting Document(s) NEGATIVE NEGATIVE LUCINDA COVID ANTIGEN eCW1 ([facility]) ID Date Data Source [id number] 12/08/2019 02:30:00 PM EDT [facility] Name Value Range Interpretation Code Description Data Arpita rce(s) Supporting Document(s) SARS coronavirus 2 RNA [facility] This lab was ordered by [facility] and reported by [facility]. Procedure Social History Code Duration Value Status Description Data Source(s ) Smoking 11/04/2020 12:00:00 AM EDT Never Smoker completed Never S moker eCW1 ([facility]) Smoking 11/04/2020 12:00:00 AM EDT Never Smoker completed Never S moker eCW1 ([facility]) Smoking 05/21/2020 12:00:00 AM EDT Never Smoker completed Never S moker eCW1 ([facility]) Smoking 05/21/2020 12:00:00 AM EDT Never Smoker completed Never S moker eCW1 ([facility]) Smoking 05/21/2020 12:00:00 AM EDT Never Smoker completed Never S moker eCW1 ([facility]) Smoking 05/21/2020 12:00:00 AM EDT Never Smoker completed Never S moker eCW1 ([facility]) Smoking 05/21/2020 12:00:00 AM EDT Never Smoker completed Never S moker eCW1 ([facility]) Smoking 05/21/2020 12:00:00 AM EDT Never Smoker completed Never S moker eCW1 ([facility]) Smoking 05/21/2020 12:00:00 AM EDT Never Smoker completed Never S moker eCW1 ([facility]) Smoking 05/21/2020 12:00:00 AM EDT Never Smoker completed Never S moker eCW1 ([facility]) Smoking 05/21/2020 12:00:00 AM EDT Never Smoker completed Never S moker eCW1 ([facility]) Smoking 05/21/2020 12:00:00 AM EDT Never Smoker completed Never S moker eCW1 ([facility]) Smoking 05/21/2020 12:00:00 AM EDT Never Smoker completed Never S moker eCW1 ([facility]) Smoking 05/21/2020 12:00:00 AM EDT Never Smoker completed Never S moker eCW1 ([facility]) Smoking 05/21/2020 12:00:00 AM EDT Never Smoker completed Never S moker eCW1 ([facility]) Smoking 05/17/2020 12:00:00 AM EDT Never Smoker completed Never S moker eCW1 ([facility]) Smoking 05/17/2020 12:00:00 AM EDT Never Smoker completed Never S moker eCW1 ([facility]) Smoking 05/17/2020 12:00:00 AM EDT Never Smoker completed Never S moker eCW1 ([facility]) Smoking 05/17/2020 12:00:00 AM EDT Never Smoker completed Never S moker eCW1 ([facility]) Smoking 05/17/2020 12:00:00 AM EDT Never Smoker completed Never S moker eCW1 ([facility]) Smoking 05/17/2020 12:00:00 AM EDT Never Smoker completed Never S moker eCW1 ([facility]) Smoking 05/17/2020 12:00:00 AM EDT Never Smoker completed Never S moker eCW1 ([facility]) Smoking 05/17/2020 12:00:00 AM EDT Never Smoker completed Never S moker eCW1 ([facility]) Smoking 04/23/2020 12:00:00 AM EST Never Smoker completed Never S moker eCW1 ([facility]) Vital Signs ID Date Data Source UNK Name Value Range Interpretation Code Description Data Source(s) Body weight 170.8 [lb_av] 170.8 [lb_av] eCW1 ([facility]) Body height 61 [in_i] 61 [in_i] eCW1 ([facility]) Body mass index (BMI) [Ratio] 32.27 kg/m2 32.27 kg/m2 eCW1 ([facility]) Heart rate 75 /min 75 /min eCW1 ([facility]) Respiratory rate 17 /min 17 /min eCW1 ([facility]) Body temperature 97.6 [degF] 97.6 [degF] eCW1 ( [facility]) Systolic blood pressure 129 mm[Hg] 129 mm[Hg] e CW1 ([facility]) Diastolic blood pressure 65 mm[Hg] 65 mm[Hg] eCW1 ([facility]) Body weight 170.6 [lb_av] 170.6 [lb_av] eCW1 ([facility]) Body height 61 [in_i] 61 [in_i] eCW1 ([facility]) Body mass index (BMI) [Ratio] 32.23 kg/m2 32.23 kg/m2 eCW1 ([facility]) Heart rate 71 /min 71 /min eCW1 ([facility]) Respiratory rate 18 /min 18 /min eCW1 ([facility]) Body temperature 97.1 [degF] 97.1 [degF] eCW1 ( [facility]) Systolic blood pressure 113 mm[Hg] 113 mm[Hg] e CW1 ([facility]) Diastolic blood pressure 72 mm[Hg] 72 mm[Hg] eCW1 ([facility]) Body weight 173 [lb_av] 173 [lb_av] eCW1 ([facility]) Body height 61 [in_i] 61 [in_i] eCW1 ([facility]) Body mass index (BMI) [Ratio] 32.68 kg/m2 32.68 kg/m2 eCW1 ([facility]) Heart rate 80 /min 80 /min eCW1 ([facility]) Respiratory rate 18 /min 18 /min eCW1 ([facility]) Body temperature 97.7 [degF] 97.7 [degF] eCW1 ( [facility]) Systolic blood pressure 110 mm[Hg] 110 mm[Hg] e CW1 ([facility]) Diastolic blood pressure 72 mm[Hg] 72 mm[Hg] eCW1 ([facility]) Patient Treatment Plan of Care Planned Activity Planned Date Details Description Data Source (s) Omeprazole 40 MG Delayed Release Oral Capsule 05/21/2020 12:00:00 A M EDT eCW1 ([facility]) Omeprazole 40 MG Delayed Release Oral Capsule 05/21/2020 12:00:00 A M EDT eCW1 ([facility]) Omeprazole 40 MG Delayed Release Oral Capsule 05/21/2020 12:00:00 A M EDT eCW1 ([facility]) Omeprazole 40 MG Delayed Release Oral Capsule 05/21/2020 12:00:00 A M EDT eCW1 ([facility]) Omeprazole 40 MG Delayed Release Oral Capsule 05/21/2020 12:00:00 A M EDT eCW1 ([facility]) Omeprazole 40 MG Delayed Release Oral Capsule 05/21/2020 12:00:00 A M EDT eCW1 ([facility]) Omeprazole 20 MG Delayed Release Oral Capsule 05/21/2020 12:00:00 A M EDT eCW1 ([facility]) Omeprazole 20 MG Delayed Release Oral Capsule 05/21/2020 12:00:00 A M EDT eCW1 ([facility]) Omeprazole 20 MG Delayed Release Oral Capsule 05/21/2020 12:00:00 A M EDT eCW1 ([facility]) Omeprazole 20 MG Delayed Release Oral Capsule 05/21/2020 12:00:00 A M EDT eCW1 ([facility]) Omeprazole 20 MG Delayed Release Oral Capsule 05/21/2020 12:00:00 A M EDT eCW1 ([facility]) Omeprazole 20 MG Delayed Release Oral Capsule 05/21/2020 12:00:00 A M EDT eCW1 ([facility]) Omeprazole 20 MG Delayed Release Oral Capsule 05/21/2020 12:00:00 A M EDT eCW1 ([facility]) Pulse Oximeter - 05/20/2020 12:00:00 AM EDT eCW1 ([facility]) Pulse Oximeter - 05/20/2020 12:00:00 AM EDT eCW1 ([facility]) 200 ACTUAT Levalbuterol 0.045 MG/ACTUAT Metered Dose I nhaler [Xopenex] 05/18/2020 12:00:00 AM EDT eCW1 ([facility] hospital) Sodium Chloride 0.154 MEQ/ML Inhalant Solution 05/18/2020 12:00:00 AM EDT eCW1 ([facility]) 200 ACTUAT Levalbuterol 0.045 MG/ACTUAT Metered Dose I nhaler [Xopenex] 05/18/2020 12:00:00 AM EDT eCW1 ([facility]) Sodium Chloride 0.154 MEQ/ML Inhalant Solution 05/18/2020 12:00:00 AM EDT eCW1 ([facility]) 200 ACTUAT Levalbuterol 0.045 MG/ACTUAT Metered Dose I nhaler [Xopenex] 05/18/2020 12:00:00 AM EDT eCW1 ([facility] hospital) Sodium Chloride 0.154 MEQ/ML Inhalant Solution 05/18/2020 12:00:00 AM EDT eCW1 ([facility]) 200 ACTUAT Levalbuterol 0.045 MG/ACTUAT Metered Dose I nhaler [Xopenex] 05/18/2020 12:00:00 AM EDT eCW1 ([facility] hospital) Sodium Chloride 0.154 MEQ/ML Inhalant Solution 05/18/2020 12:00:00 AM EDT eCW1 ([facility]) 200 ACTUAT Levalbuterol 0.045 MG/ACTUAT Metered Dose I nhaler [Xopenex] 05/18/2020 12:00:00 AM EDT eCW1 (Critical [facility] hospital) Sodium Chloride 0.154 MEQ/ML Inhalant Solution 05/18/2020 12:00:00 AM EDT eCW1 ([facility]) Prednisone 20 MG Oral Tablet 05/17/2020 12:00:00 AM EDT eCW1 ([facility]) Prednisone 20 MG Oral Tablet 05/17/2020 12:00:00 AM EDT eCW1 ([facility]) Prednisone 20 MG Oral Tablet 05/17/2020 12:00:00 AM EDT eCW1 ([facility]) Prednisone 20 MG Oral Tablet 05/17/2020 12:00:00 AM EDT eCW1 ([facility]) Prednisone 20 MG Oral Tablet 05/17/2020 12:00:00 AM EDT eCW1 ([facility]) Prednisone 20 MG Oral Tablet 05/17/2020 12:00:00 AM EDT eCW1 ([facility]) Prednisone 20 MG Oral Tablet 05/17/2020 12:00:00 AM EDT eCW1 ([facility]) Prednisone 20 MG Oral Tablet 05/17/2020 12:00:00 AM EDT eCW1 ([facility]) Clobetasol Propionate 0.5 MG/ML Topical Cream 02/27/2020 12:00:00 A M EST eCW1 ([facility]) Clobetasol Propionate 0.5 MG/ML Topical Cream 02/27/2020 12:00:00 A M EST eCW1 ([facility]) Clobetasol Propionate 0.5 MG/ML Topical Cream 02/27/2020 12:00:00 A M EST eCW1 ([facility]) Clobetasol Propionate 0.5 MG/ML Topical Cream 02/27/2020 12:00:00 A M EST eCW1 (Formerly [facility]) Clobetasol Propionate 0.5 MG/ML Topical Cream 02/27/2020 12:00:00 A M EST eCW1 (Formerly [facility]) Clobetasol Propionate 0.5 MG/ML Topical Cream 02/27/2020 12:00:00 A M EST eCW1 (Formerly [facility]) Clobetasol Propionate 0.5 MG/ML Topical Cream 02/27/2020 12:00:00 A M EST eCW1 (Formerly [facility]) Clobetasol Propionate 0.5 MG/ML Topical Cream 02/27/2020 12:00:00 A M EST eCW1 (Formerly [facility]) Clobetasol Propionate 0.5 MG/ML Topical Cream 02/27/2020 12:00:00 A M EST eCW1 (Formerly [facility]) Clobetasol Propionate 0.5 MG/ML Topical Cream 02/27/2020 12:00:00 A M EST eCW1 (Formerly [facility]) Clobetasol Propionate 0.5 MG/ML Topical Cream 02/27/2020 12:00:00 A M EST eCW1 (Formerly [facility]) Clobetasol Propionate 0.5 MG/ML Topical Cream 02/27/2020 12:00:00 A M EST eCW1 (Formerly [facility]) Clobetasol Propionate 0.5 MG/ML Topical Cream 02/27/2020 12:00:00 A M EST eCW1 (Formerly [facility]) Clobetasol Propionate 0.5 MG/ML Topical Cream 02/27/2020 12:00:00 A M EST eCW1 (Formerly [facility]) Clobetasol Propionate 0.5 MG/ML Topical Cream 02/27/2020 12:00:00 A M EST eCW1 (Formerly [facility]) Levalbuterol 0.417 MG/ML Inhalant Solution 12/02/2019 12:00:00 AM E DT eCW1 (Formerly [facility]) Levalbuterol 0.417 MG/ML Inhalant Solution 12/02/2019 12:00:00 AM E DT eCW1 (Formerly [facility]) Levalbuterol 0.417 MG/ML Inhalant Solution 12/02/2019 12:00:00 AM E DT eCW1 (Formerly [facility]) Levalbuterol 0.417 MG/ML Inhalant Solution 12/02/2019 12:00:00 AM E DT eCW1 (Formerly [facility]) Levalbuterol 0.417 MG/ML Inhalant Solution 12/02/2019 12:00:00 AM E DT [email or web address] (Formerly [facility]) Levalbuterol 0.417 MG/ML Inhalant Solution 12/02/2019 12:00:00 AM E DT [email or web address] (Formerly [facility]) Levalbuterol 0.417 MG/ML Inhalant Solution 12/02/2019 12:00:00 AM E DT [email or web address] (Formerly [facility])
[2020-12-27] MEDS ORDERED: BENZ200C70 PO (13:44)
[2020-12-27] MEDS ORDERED: LEVA1.25 INH (13:44)
[2020-12-27 13:53] VITALS: BP 117/64
== END 2020-12-27 13:54 | disposition home or self-care (01) ==
LOC: M ED 09:25
DX: R05.9 Cough, unspecified (principal); R06.2 Wheezing

== ENCOUNTER 2020-12-30 08:50 | Emergency (ER) | payer OTHER ==
[~2020-12-30] VITALS: Ht 154.9 cm; Wt 75.0 kg
[~2020-12-30 08:50] MED LIST: ALIG4CAP PO; ASPI81TA26 PO; BENZ200C70 PO; CLOB60CR4 TD; D31000TA2 PO; FEXO180T58 PO; FLUT11IN INH; FURO20TA2 PO; LEVA1.25 INH; LEVA1.2519; LEVA45AE; OMEP-221 PO
[2020-12-30] MEDS ORDERED: IPRATROPIUM 0.5MG/ALBUTEROL 2.5MG INH SOL UD 3ML (DUONEB) NEB ONE (12:20)
--- OUTSIDE RECORDS SUMMARY | 2020-12-30 12:25 | CCD ---
Author Author [facility] Organization [facility] Address Unknown Phone Unavailable Support Name Relationship Address Phone DISABLED Next Of Kin Unknown Unavailable SALAZAR CONTRERAS Next Of Kin [address] [place] [address] [address] [place], [place] [phone] SALAZAR CONTRERAS [address] [place] [address] Unavailable Re-disclosure Warning The records that you [...] is protected by Article 27-F of the [facility] Public Health law. If you continue you may have access to information: Regarding HIV / AIDS; Provided by facilities licensed or operated by the [facility] Office of Mental Health; or Provided by the [facility] Office for People With Developmental Disabilities. If such information is present, then the following [facility] mandated warning applies: This information has been [...] law may result in a fine or chcf sentence or both. A general authorization for the release of medical or other information is NOT sufficient authorization for further disc losure. Encounters Encounter Providers Location Date Indications Data Source(s ) [place] [address] [facility] [address] 11/12/2020 12:00:00 AM EDT eCW1 ([facility]) [place] [address] [facility] [address] 11/04/2020 12:00:00 AM EDT eCW1 ([facility]) [place] [address] [facility] [address] 10/19/2020 12:00:00 AM EDT eCW1 ([facility]) [place] [address] [facility] [address] 10/14/2020 12:00:00 AM EDT eCW1 ([facility]) [place] [address] [facility] [address] 10/13/2020 12:00:00 AM EDT eCW1 ([facility]) [place] [address] [facility] [address] 10/13/2020 12:00:00 AM EDT eCW1 ([facility]) [place] [address] [facility] [address] 10/12/2020 12:00:00 AM EDT eCW1 ([facility]) [place] [address] [facility] [address] 10/08/2020 12:00:00 AM EDT eCW1 ([facility]) [place] [address] [facility] [address] 10/06/2020 12:00:00 AM EDT eCW1 ([facility]) [place] [address] [facility] [address] 10/01/2020 12:00:00 AM EDT eCW1 ([facility]) [place] [address] [facility] [address] 09/22/2020 12:00:00 AM EDT eCW1 ([facility]) [place] [address] [facility] [address] 09/20/2020 12:00:00 AM EDT eCW1 ([facility]) [place] [address] [facility] [address] 08/02/2020 12:00:00 AM EDT eCW1 ([facility]) [place] [address] [facility] [address] 07/02/2020 12:00:00 AM EDT eCW1 ([facility]) [place] [address] [facility] [address] 05/21/2020 12:00:00 AM EDT eCW1 ([facility]) [place] [address] [facility] [address] 05/19/2020 12:00:00 AM EDT eCW1 ([facility]) Unknown [address] [facility] [address] 05/18/2020 12:00:00 AM EDT eCW1 ([facility]) Unknown [address] [facility] [address] 05/18/2020 12:00:00 AM EDT eCW1 ([facility]) Unknown [address] [facility] [address] 05/18/2020 12:00:00 AM EDT eCW1 ([facility]) [place] [address] [facility] [address] 05/17/2020 12:00:00 AM EDT eCW1 ([facility]) [place] [address] [facility] [address] 05/17/2020 12:00:00 AM EDT eCW1 ([facility]) Unknown [address] [facility] [address] 05/17/2020 12:00:00 AM EDT eCW1 ([facility]) Unknown [address] [facility] [address] 05/13/2020 12:00:00 AM EDT eCW1 ([facility]) [place] [address] [facility] [address] 05/11/2020 12:00:00 AM EDT eCW1 ([facility]) [place] [address] [facility] [address] 02/25/2020 12:00:00 AM EST eCW1 ([facility]) Unknown [address] [facility] [address] 01/23/2020 12:00:00 AM EST eCW1 ([facility]) Unknown [address] [facility] [address] 01/20/2020 12:00:00 AM EST eCW1 ([facility]) Unknown [address] [facility] [address] 01/06/2020 12:00:00 AM EST eCW1 ([facility]) Unknown [address] [facility] [address] 01/01/2020 12:00:00 AM EST eCW1 ([facility]) [place] [address] [facility] [address] 12/23/2019 12:00:00 AM EST eCW1 ([facility]) Unknown [address] [facility] [address] 12/02/2019 12:00:00 AM EDT eCW1 ([facility]) Immunizations Vaccine Date Status Description Data Source(s) influenza, recombinant, quadrIvalent,injectable, prese rvative free 12/23/2019 10:17:00 AM EST completed eCW1 ([facility]) influenza, recombinant, quadrIvalent,injectable, prese rvative free 12/23/2019 10:17:00 AM EST completed eCW1 ([facility]) influenza, recombinant, quadrIvalent,injectable, prese rvative free 12/23/2019 10:17:00 AM EST completed eCW1 ([facility]) influenza, recombinant, quadrIvalent,injectable, prese rvative free 12/23/2019 10:17:00 AM EST completed eCW1 ([facility]) influenza, recombinant, quadrIvalent,injectable, prese rvative free 12/23/2019 10:17:00 AM EST completed eCW1 ([facility]) influenza, recombinant, quadrIvalent,injectable, prese rvative free 12/23/2019 10:17:00 AM EST completed eCW1 ([facility]) influenza, recombinant, quadrIvalent,injectable, prese rvative free 12/23/2019 10:17:00 AM EST completed eCW1 ([facility]) influenza, recombinant, quadrIvalent,injectable, prese rvative free 12/23/2019 10:17:00 AM EST completed eCW1 ([facility]) influenza, recombinant, quadrIvalent,injectable, prese rvative free 12/23/2019 10:17:00 AM EST completed eCW1 ([facility]) influenza, recombinant, quadrIvalent,injectable, prese rvative free 12/23/2019 10:17:00 AM EST completed eCW1 ([facility]) influenza, recombinant, quadrIvalent,injectable, prese rvative free 12/23/2019 10:17:00 AM EST completed eCW1 ([facility]) influenza, recombinant, quadrIvalent,injectable, prese rvative free 12/23/2019 10:17:00 AM EST completed eCW1 ([facility]) influenza, recombinant, quadrIvalent,injectable, prese rvative free 12/23/2019 10:17:00 AM EST completed eCW1 ([facility]) influenza, recombinant, quadrIvalent,injectable, prese rvative free 12/23/2019 10:17:00 AM EST completed eCW1 ([facility]) influenza, recombinant, quadrIvalent,injectable, prese rvative free 12/23/2019 10:17:00 AM EST completed eCW1 ([facility]) influenza, recombinant, quadrIvalent,injectable, prese rvative free 12/23/2019 10:17:00 AM EST completed eCW1 ([facility]) influenza, recombinant, quadrIvalent,injectable, prese rvative free 12/23/2019 10:17:00 AM EST completed eCW1 ([facility]) influenza, recombinant, quadrIvalent,injectable, prese rvative free 12/23/2019 10:17:00 AM EST completed eCW1 ([facility]) influenza, recombinant, quadrIvalent,injectable, prese rvative free 12/23/2019 10:17:00 AM EST completed eCW1 ([facility]) influenza, recombinant, quadrIvalent,injectable, prese rvative free 12/23/2019 10:17:00 AM EST completed eCW1 ([facility]) influenza, recombinant, quadrIvalent,injectable, prese rvative free 12/23/2019 10:17:00 AM EST completed eCW1 ([facility]) influenza, recombinant, quadrIvalent,injectable, prese rvative free 12/23/2019 10:17:00 AM EST completed eCW1 ([facility]) influenza, recombinant, quadrIvalent,injectable, prese rvative free 12/23/2019 10:17:00 AM EST completed eCW1 ([facility]) influenza, recombinant, quadrIvalent,injectable, prese rvative free 12/23/2019 10:17:00 AM EST completed eCW1 ([facility]) influenza, recombinant, quadrIvalent,injectable, prese rvative free 12/23/2019 10:17:00 AM EST completed eCW1 ([facility]) influenza, recombinant, quadrIvalent,injectable, prese rvative free 12/23/2019 10:17:00 AM EST completed eCW1 ([facility]) influenza, recombinant, quadrIvalent,injectable, prese rvative free 12/23/2019 10:17:00 AM EST completed eCW1 ([facility]) influenza, recombinant, quadrIvalent,injectable, prese rvative free 12/23/2019 10:17:00 AM EST completed eCW1 ([facility]) influenza, recombinant, quadrIvalent,injectable, prese rvative free 12/23/2019 10:17:00 AM EST completed eCW1 ([facility]) influenza, recombinant, quadrIvalent,injectable, prese rvative free 12/23/2019 10:17:00 AM EST completed eCW1 ([facility]) Medications Medication Brand Name Start Date Product Form Dose Route Admi nistrative Instructions Pharmacy Instructions Status Indications Reaction Description Data Source(s) Omeprazole 40 MG Delayed Release Oral Capsule Omeprazole 40 MG 05/21/2020 12:00:00 AM EDT active Omeprazo le 40 MG eCW1 ([facility]) Omeprazole 20 MG Delayed Release Oral Capsule Omeprazole 20 MG 05/21/2020 12:00:00 AM EDT active Omeprazo le 20 MG eCW1 ([facility]) Omeprazole 40 MG Delayed Release Oral Capsule Omeprazole 40 MG 05/21/2020 12:00:00 AM EDT active Omeprazo le 40 MG eCW1 ([facility]) Omeprazole 40 MG Delayed Release Oral Capsule Omeprazole 40 MG 05/21/2020 12:00:00 AM EDT active Omeprazo le 40 MG eCW1 ([facility]) Omeprazole 40 MG Delayed Release Oral Capsule Omeprazole 40 MG 05/21/2020 12:00:00 AM EDT active Omeprazo le 40 MG eCW1 ([facility]) Omeprazole 40 MG Delayed Release Oral Capsule Omeprazole 40 MG 05/21/2020 12:00:00 AM EDT active Omeprazo le 40 MG eCW1 ([facility]) Omeprazole 40 MG Delayed Release Oral Capsule Omeprazole 40 MG 05/21/2020 12:00:00 AM EDT active Omeprazo le 40 MG eCW1 ([facility]) Omeprazole 20 MG Delayed Release Oral Capsule Omeprazole 20 MG 05/21/2020 12:00:00 AM EDT active Omeprazo le 20 MG eCW1 ([facility]) Omeprazole 20 MG Delayed Release Oral Capsule Omeprazole 20 MG 05/21/2020 12:00:00 AM EDT active Omeprazo le 20 MG eCW1 ([facility]) Omeprazole 20 MG Delayed Release Oral Capsule Omeprazole 20 MG 05/21/2020 12:00:00 AM EDT active Omeprazo le 20 MG eCW1 ([facility]) Omeprazole 40 MG Delayed Release Oral Capsule Omeprazole 40 MG 05/21/2020 12:00:00 AM EDT active Omeprazo le 40 MG eCW1 ([facility]) Omeprazole 20 MG Delayed Release Oral Capsule Omeprazole 20 MG 05/21/2020 12:00:00 AM EDT active Omeprazo le 20 MG eCW1 ([facility]) Omeprazole 20 MG Delayed Release Oral Capsule Omeprazole 20 MG 05/21/2020 12:00:00 AM EDT active Omeprazo le 20 MG eCW1 ([facility]) Omeprazole 40 MG Delayed Release Oral Capsule Omeprazole 40 MG 05/21/2020 12:00:00 AM EDT active Omeprazo le 40 MG eCW1 ([facility]) Omeprazole 20 MG Delayed Release Oral Capsule Omeprazole 20 MG 05/21/2020 12:00:00 AM EDT active Omeprazo le 20 MG eCW1 ([facility]) Pulse Oximeter - Pulse Oximeter - 05/20/2020 12:00:00 AM EDT active Pulse Oximeter - eCW1 ([facility]) Pulse Oximeter - Pulse Oximeter - 05/20/2020 12:00:00 AM EDT active Pulse Oximeter - eCW1 ([facility]) Pulse Oximeter - Pulse Oximeter - 05/20/2020 12:00:00 AM EDT active Pulse Oximeter - eCW1 ([facility]) Pulse Oximeter - Pulse Oximeter - 05/20/2020 12:00:00 AM EDT active Pulse Oximeter - eCW1 ([facility]) Pulse Oximeter - Pulse Oximeter - 05/20/2020 12:00:00 AM EDT active Pulse Oximeter - eCW1 ([facility]) Pulse Oximeter - Pulse Oximeter - 05/20/2020 12:00:00 AM EDT active Pulse Oximeter - eCW1 ([facility]) Pulse Oximeter - Pulse Oximeter - 05/20/2020 12:00:00 AM EDT active Pulse Oximeter - eCW1 ([facility]) Pulse Oximeter - Pulse Oximeter - 05/20/2020 12:00:00 AM EDT active Pulse Oximeter - eCW1 ([facility]) Pulse Oximeter - Pulse Oximeter - 05/20/2020 12:00:00 AM EDT active Pulse Oximeter - eCW1 ([facility]) Pulse Oximeter - Pulse Oximeter - 05/20/2020 12:00:00 AM EDT active Pulse Oximeter - eCW1 ([facility]) Pulse Oximeter - Pulse Oximeter - 05/20/2020 12:00:00 AM EDT active Pulse Oximeter - eCW1 ([facility]) Pulse Oximeter - Pulse Oximeter - 05/20/2020 12:00:00 AM EDT active Pulse Oximeter - eCW1 ([facility]) Pulse Oximeter - Pulse Oximeter - 05/20/2020 12:00:00 AM EDT active Pulse Oximeter - eCW1 ([facility]) Pulse Oximeter - Pulse Oximeter - 05/20/2020 12:00:00 AM EDT active Pulse Oximeter - eCW1 ([facility]) Pulse Oximeter - Pulse Oximeter - 05/20/2020 12:00:00 AM EDT active Pulse Oximeter - eCW1 ([facility]) Pulse Oximeter - Pulse Oximeter - 05/20/2020 12:00:00 AM EDT active Pulse Oximeter - eCW1 ([facility]) Pulse Oximeter - Pulse Oximeter - 05/20/2020 12:00:00 AM EDT active Pulse Oximeter - eCW1 ([facility]) Sodium Chloride 0.154 MEQ/ML Inhalant Solution Sodium Chloride 0.9 % Sodium Chloride 0.9 % 05/18/2020 12:00:00 AM EDT 4.0 {ml} a ctive Sodium Chloride 0.9 % eCW1 ([facility]) Sodium Chloride 0.154 MEQ/ML Inhalant Solution Sodium Chloride 0.9 % Sodium Chloride 0.9 % 05/18/2020 12:00:00 AM EDT 4.0 {ml} a ctive Sodium Chloride 0.9 % eCW1 ([facility]) 200 ACTUAT Levalbuterol 0.045 MG/ACTUAT Metered Dose Inhaler [Xopenex] Xopenex HFA 45 MCG/ACT Xopenex HFA 45 MCG/ACT 05/18/2020 12:00:00 AM EDT 1.0 {puff_as_needed} active Xopenex HFA 45 MCG/ACT eCW1 ([facility]) 200 ACTUAT Levalbuterol 0.045 MG/ACTUAT Metered Dose Inhaler [Xopenex] Xopenex HFA 45 MCG/ACT Xopenex HFA 45 MCG/ACT 05/18/2020 12:00:00 AM EDT 1.0 {puff_as_needed} active Xopenex HFA 45 MCG/ACT eCW1 ([facility]) 200 ACTUAT Levalbuterol 0.045 MG/ACTUAT Metered Dose Inhaler [Xopenex] Xopenex HFA 45 MCG/ACT Xopenex HFA 45 MCG/ACT 05/18/2020 12:00:00 AM EDT 1.0 {puff_as_needed} active Xopenex HFA 45 MCG/ACT eCW1 ([facility]) 200 ACTUAT Levalbuterol 0.045 MG/ACTUAT Metered Dose Inhaler [Xopenex] Xopenex HFA 45 MCG/ACT Xopenex HFA 45 MCG/ACT 05/18/2020 12:00:00 AM EDT 1.0 {puff_as_needed} active Xopenex HFA 45 MCG/ACT eCW1 ([facility]) 200 ACTUAT Levalbuterol 0.045 MG/ACTUAT Metered Dose Inhaler [Xopenex] Xopenex HFA 45 MCG/ACT Xopenex HFA 45 MCG/ACT 05/18/2020 12:00:00 AM EDT 1.0 {puff_as_needed} active Xopenex HFA 45 MCG/ACT eCW1 ([facility]) Sodium Chloride 0.154 MEQ/ML Inhalant Solution Sodium Chloride 0.9 % Sodium Chloride 0.9 % 05/18/2020 12:00:00 AM EDT 4.0 {ml} a ctive Sodium Chloride 0.9 % eCW1 ([facility]) Sodium Chloride 0.154 MEQ/ML Inhalant Solution Sodium Chloride 0.9 % Sodium Chloride 0.9 % 05/18/2020 12:00:00 AM EDT 4.0 {ml} a ctive Sodium Chloride 0.9 % eCW1 ([facility]) Sodium Chloride 0.154 MEQ/ML Inhalant Solution Sodium Chloride 0.9 % Sodium Chloride 0.9 % 05/18/2020 12:00:00 AM EDT 4.0 {ml} a ctive Sodium Chloride 0.9 % eCW1 ([facility]) Sodium Chloride 0.154 MEQ/ML Inhalant Solution Sodium Chloride 0.9 % Sodium Chloride 0.9 % 05/18/2020 12:00:00 AM EDT 4.0 {ml} a ctive Sodium Chloride 0.9 % eCW1 ([facility]) Sodium Chloride 0.154 MEQ/ML Inhalant Solution Sodium Chloride 0.9 % Sodium Chloride 0.9 % 05/18/2020 12:00:00 AM EDT 4.0 {ml} a ctive Sodium Chloride 0.9 % eCW1 ([facility]) 200 ACTUAT Levalbuterol 0.045 MG/ACTUAT Metered Dose Inhaler [Xopenex] Xopenex HFA 45 MCG/ACT Xopenex HFA 45 MCG/ACT 05/18/2020 12:00:00 AM EDT 1.0 {puff_as_needed} active Xopenex HFA 45 MCG/ACT eCW1 ([facility]) Sodium Chloride 0.154 MEQ/ML Inhalant Solution Sodium Chloride 0.9 % Sodium Chloride 0.9 % 05/18/2020 12:00:00 AM EDT 4.0 {ml} a ctive Sodium Chloride 0.9 % eCW1 ([facility]) Sodium Chloride 0.154 MEQ/ML Inhalant Solution Sodium Chloride 0.9 % Sodium Chloride 0.9 % 05/18/2020 12:00:00 AM EDT 4.0 {ml} a ctive Sodium Chloride 0.9 % eCW1 ([facility]) Sodium Chloride 0.154 MEQ/ML Inhalant Solution Sodium Chloride 0.9 % Sodium Chloride 0.9 % 05/18/2020 12:00:00 AM EDT 4.0 {ml} a ctive Sodium Chloride 0.9 % eCW1 ([facility]) Sodium Chloride 0.154 MEQ/ML Inhalant Solution Sodium Chloride 0.9 % Sodium Chloride 0.9 % 05/18/2020 12:00:00 AM EDT 4.0 {ml} a ctive Sodium Chloride 0.9 % eCW1 ([facility]) 200 ACTUAT Levalbuterol 0.045 MG/ACTUAT Metered Dose Inhaler [Xopenex] Xopenex HFA 45 MCG/ACT Xopenex HFA 45 MCG/ACT 05/18/2020 12:00:00 AM EDT 1.0 {puff_as_needed} active Xopenex HFA 45 MCG/ACT eCW1 ([facility]) 200 ACTUAT Levalbuterol 0.045 MG/ACTUAT Metered Dose Inhaler [Xopenex] Xopenex HFA 45 MCG/ACT Xopenex HFA 45 MCG/ACT 05/18/2020 12:00:00 AM EDT 1.0 {puff_as_needed} active Xopenex HFA 45 MCG/ACT eCW1 ([facility]) 200 ACTUAT Levalbuterol 0.045 MG/ACTUAT Metered Dose Inhaler [Xopenex] Xopenex HFA 45 MCG/ACT Xopenex HFA 45 MCG/ACT 05/18/2020 12:00:00 AM EDT 1.0 {puff_as_needed} active Xopenex HFA 45 MCG/ACT eCW1 ([facility]) Sodium Chloride 0.154 MEQ/ML Inhalant Solution Sodium Chloride 0.9 % Sodium Chloride 0.9 % 05/18/2020 12:00:00 AM EDT 4.0 {ml} a ctive Sodium Chloride 0.9 % eCW1 ([facility]) Sodium Chloride 0.154 MEQ/ML Inhalant Solution Sodium Chloride 0.9 % Sodium Chloride 0.9 % 05/18/2020 12:00:00 AM EDT 4.0 {ml} a ctive Sodium Chloride 0.9 % eCW1 ([facility]) 200 ACTUAT Levalbuterol 0.045 MG/ACTUAT Metered Dose Inhaler [Xopenex] Xopenex HFA 45 MCG/ACT Xopenex HFA 45 MCG/ACT 05/18/2020 12:00:00 AM EDT 1.0 {puff_as_needed} active Xopenex HFA 45 MCG/ACT eCW1 ([facility]) 200 ACTUAT Levalbuterol 0.045 MG/ACTUAT Metered Dose Inhaler [Xopenex] Xopenex HFA 45 MCG/ACT Xopenex HFA 45 MCG/ACT 05/18/2020 12:00:00 AM EDT 1.0 {puff_as_needed} active Xopenex HFA 45 MCG/ACT eCW1 ([facility]) 200 ACTUAT Levalbuterol 0.045 MG/ACTUAT Metered Dose Inhaler [Xopenex] Xopenex HFA 45 MCG/ACT Xopenex HFA 45 MCG/ACT 05/18/2020 12:00:00 AM EDT 1.0 {puff_as_needed} active Xopenex HFA 45 MCG/ACT eCW1 ([facility]) 200 ACTUAT Levalbuterol 0.045 MG/ACTUAT Metered Dose Inhaler [Xopenex] Xopenex HFA 45 MCG/ACT Xopenex HFA 45 MCG/ACT 05/18/2020 12:00:00 AM EDT 1.0 {puff_as_needed} active Xopenex HFA 45 MCG/ACT eCW1 ([facility]) Sodium Chloride 0.154 MEQ/ML Inhalant Solution Sodium Chloride 0.9 % Sodium Chloride 0.9 % 05/18/2020 12:00:00 AM EDT 4.0 {ml} a ctive Sodium Chloride 0.9 % eCW1 ([facility]) Sodium Chloride 0.154 MEQ/ML Inhalant Solution Sodium Chloride 0.9 % Sodium Chloride 0.9 % 05/18/2020 12:00:00 AM EDT 4.0 {ml} a ctive Sodium Chloride 0.9 % eCW1 ([facility]) Sodium Chloride 0.154 MEQ/ML Inhalant Solution Sodium Chloride 0.9 % Sodium Chloride 0.9 % 05/18/2020 12:00:00 AM EDT 4.0 {ml} a ctive Sodium Chloride 0.9 % eCW1 ([facility]) Sodium Chloride 0.154 MEQ/ML Inhalant Solution Sodium Chloride 0.9 % Sodium Chloride 0.9 % 05/18/2020 12:00:00 AM EDT 4.0 {ml} a ctive Sodium Chloride 0.9 % eCW1 ([facility]) 200 ACTUAT Levalbuterol 0.045 MG/ACTUAT Metered Dose Inhaler [Xopenex] Xopenex HFA 45 MCG/ACT Xopenex HFA 45 MCG/ACT 05/18/2020 12:00:00 AM EDT 1.0 {puff_as_needed} active Xopenex HFA 45 MCG/ACT eCW1 ([facility]) 200 ACTUAT Levalbuterol 0.045 MG/ACTUAT Metered Dose Inhaler [Xopenex] Xopenex HFA 45 MCG/ACT Xopenex HFA 45 MCG/ACT 05/18/2020 12:00:00 AM EDT 1.0 {puff_as_needed} active Xopenex HFA 45 MCG/ACT eCW1 ([facility]) Sodium Chloride 0.154 MEQ/ML Inhalant Solution Sodium Chloride 0.9 % Sodium Chloride 0.9 % 05/18/2020 12:00:00 AM EDT 4.0 {ml} a ctive Sodium Chloride 0.9 % eCW1 ([facility]) Sodium Chloride 0.154 MEQ/ML Inhalant Solution Sodium Chloride 0.9 % Sodium Chloride 0.9 % 05/18/2020 12:00:00 AM EDT 4.0 {ml} a ctive Sodium Chloride 0.9 % eCW1 ([facility]) 200 ACTUAT Levalbuterol 0.045 MG/ACTUAT Metered Dose Inhaler [Xopenex] Xopenex HFA 45 MCG/ACT Xopenex HFA 45 MCG/ACT 05/18/2020 12:00:00 AM EDT 1.0 {puff_as_needed} active Xopenex HFA 45 MCG/ACT eCW1 ([facility]) 200 ACTUAT Levalbuterol 0.045 MG/ACTUAT Metered Dose Inhaler [Xopenex] Xopenex HFA 45 MCG/ACT Xopenex HFA 45 MCG/ACT 05/18/2020 12:00:00 AM EDT 1.0 {puff_as_needed} active Xopenex HFA 45 MCG/ACT eCW1 ([facility]) Sodium Chloride 0.154 MEQ/ML Inhalant Solution Sodium Chloride 0.9 % Sodium Chloride 0.9 % 05/18/2020 12:00:00 AM EDT 4.0 {ml} a ctive Sodium Chloride 0.9 % eCW1 ([facility]) 200 ACTUAT Levalbuterol 0.045 MG/ACTUAT Metered Dose Inhaler [Xopenex] Xopenex HFA 45 MCG/ACT Xopenex HFA 45 MCG/ACT 05/18/2020 12:00:00 AM EDT 1.0 {puff_as_needed} active Xopenex HFA 45 MCG/ACT eCW1 ([facility]) 200 ACTUAT Levalbuterol 0.045 MG/ACTUAT Metered Dose Inhaler [Xopenex] Xopenex HFA 45 MCG/ACT Xopenex HFA 45 MCG/ACT 05/18/2020 12:00:00 AM EDT 1.0 {puff_as_needed} active Xopenex HFA 45 MCG/ACT eCW1 ([facility]) 200 ACTUAT Levalbuterol 0.045 MG/ACTUAT Metered Dose Inhaler [Xopenex] Xopenex HFA 45 MCG/ACT Xopenex HFA 45 MCG/ACT 05/18/2020 12:00:00 AM EDT 1.0 {puff_as_needed} active Xopenex HFA 45 MCG/ACT eCW1 ([facility]) Prednisone 20 MG Oral Tablet PredniSONE 20 MG PredniSONE 20 MG 05/17/2020 12:00:00 AM EDT 1.0 {tablet} active Pr edniSONE 20 MG eCW1 ([facility]) Prednisone 20 MG Oral Tablet PredniSONE 20 MG PredniSONE 20 MG 05/17/2020 12:00:00 AM EDT 1.0 {tablet} active Pr edniSONE 20 MG eCW1 ([facility]) Prednisone 20 MG Oral Tablet PredniSONE 20 MG PredniSONE 20 MG 05/17/2020 12:00:00 AM EDT 1.0 {tablet} active Pr edniSONE 20 MG eCW1 ([facility]) Prednisone 20 MG Oral Tablet PredniSONE 20 MG PredniSONE 20 MG 05/17/2020 12:00:00 AM EDT 1.0 {tablet} active Pr edniSONE 20 MG eCW1 ([facility]) Prednisone 20 MG Oral Tablet PredniSONE 20 MG PredniSONE 20 MG 05/17/2020 12:00:00 AM EDT 1.0 {tablet} active Pr edniSONE 20 MG eCW1 ([facility]) Prednisone 20 MG Oral Tablet PredniSONE 20 MG PredniSONE 20 MG 05/17/2020 12:00:00 AM EDT 1.0 {tablet} active Pr edniSONE 20 MG eCW1 ([facility]) Prednisone 20 MG Oral Tablet PredniSONE 20 MG PredniSONE 20 MG 05/17/2020 12:00:00 AM EDT 1.0 {tablet} active Pr edniSONE 20 MG eCW1 ([facility]) Prednisone 20 MG Oral Tablet PredniSONE 20 MG PredniSONE 20 MG 05/17/2020 12:00:00 AM EDT 1.0 {tablet} active Pr edniSONE 20 MG eCW1 ([facility]) Clobetasol Propionate 0.5 MG/ML Topical Cream Clobetas ol Propionate 0.05 % Clobetasol Propionate 0.05 % 02/27/2020 12:00:00 AM EST active Clobetasol Propionate 0.05 % eCW1 ([facility]) Clobetasol Propionate 0.5 MG/ML Topical Cream Clobetas ol Propionate 0.05 % Clobetasol Propionate 0.05 % 02/27/2020 12:00:00 AM EST active Clobetasol Propionate 0.05 % eCW1 ([facility]) Clobetasol Propionate 0.5 MG/ML Topical Cream Clobetas ol Propionate 0.05 % Clobetasol Propionate 0.05 % 02/27/2020 12:00:00 AM EST active Clobetasol Propionate 0.05 % eCW1 ([facility]) Clobetasol Propionate 0.5 MG/ML Topical Cream Clobetas ol Propionate 0.05 % Clobetasol Propionate 0.05 % 02/27/2020 12:00:00 AM EST active Clobetasol Propionate 0.05 % eCW1 ([facility]) Clobetasol Propionate 0.5 MG/ML Topical Cream Clobetas ol Propionate 0.05 % Clobetasol Propionate 0.05 % 02/27/2020 12:00:00 AM EST active Clobetasol Propionate 0.05 % eCW1 ([facility] [facility]) Clobetasol Propionate 0.5 MG/ML Topical Cream Clobetas ol Propionate 0.05 % Clobetasol Propionate 0.05 % 02/27/2020 12:00:00 AM EST active Clobetasol Propionate 0.05 % eCW1 ([facility]) Clobetasol Propionate 0.5 MG/ML Topical Cream Clobetas ol Propionate 0.05 % Clobetasol Propionate 0.05 % 02/27/2020 12:00:00 AM EST active Clobetasol Propionate 0.05 % eCW1 ([facility]) Clobetasol Propionate 0.5 MG/ML Topical Cream Clobetas ol Propionate 0.05 % Clobetasol Propionate 0.05 % 02/27/2020 12:00:00 AM EST active Clobetasol Propionate 0.05 % eCW1 ([facility]) Clobetasol Propionate 0.5 MG/ML Topical Cream Clobetas ol Propionate 0.05 % Clobetasol Propionate 0.05 % 02/27/2020 12:00:00 AM EST active Clobetasol Propionate 0.05 % eCW1 ([facility]) Clobetasol Propionate 0.5 MG/ML Topical Cream Clobetas ol Propionate 0.05 % Clobetasol Propionate 0.05 % 02/27/2020 12:00:00 AM EST active Clobetasol Propionate 0.05 % eCW1 ([facility]) Clobetasol Propionate 0.5 MG/ML Topical Cream Clobetas ol Propionate 0.05 % Clobetasol Propionate 0.05 % 02/27/2020 12:00:00 AM EST active Clobetasol Propionate 0.05 % eCW1 ([facility]) Clobetasol Propionate 0.5 MG/ML Topical Cream Clobetas ol Propionate 0.05 % Clobetasol Propionate 0.05 % 02/27/2020 12:00:00 AM EST active Clobetasol Propionate 0.05 % eCW1 ([facility]) Clobetasol Propionate 0.5 MG/ML Topical Cream Clobetas ol Propionate 0.05 % Clobetasol Propionate 0.05 % 02/27/2020 12:00:00 AM EST active Clobetasol Propionate 0.05 % eCW1 ([facility]) Clobetasol Propionate 0.5 MG/ML Topical Cream Clobetas ol Propionate 0.05 % Clobetasol Propionate 0.05 % 02/27/2020 12:00:00 AM EST active Clobetasol Propionate 0.05 % eCW1 ([facility]) Clobetasol Propionate 0.5 MG/ML Topical Cream Clobetas ol Propionate 0.05 % Clobetasol Propionate 0.05 % 02/27/2020 12:00:00 AM EST active Clobetasol Propionate 0.05 % eCW1 ([facility]) Clobetasol Propionate 0.5 MG/ML Topical Cream Clobetas ol Propionate 0.05 % Clobetasol Propionate 0.05 % 02/27/2020 12:00:00 AM EST active Clobetasol Propionate 0.05 % eCW1 ([facility]) Clobetasol Propionate 0.5 MG/ML Topical Cream Clobetas ol Propionate 0.05 % Clobetasol Propionate 0.05 % 02/27/2020 12:00:00 AM EST active Clobetasol Propionate 0.05 % eCW1 ([facility]) Clobetasol Propionate 0.5 MG/ML Topical Cream Clobetas ol Propionate 0.05 % Clobetasol Propionate 0.05 % 02/27/2020 12:00:00 AM EST active Clobetasol Propionate 0.05 % eCW1 ([facility]) Clobetasol Propionate 0.5 MG/ML Topical Cream Clobetas ol Propionate 0.05 % Clobetasol Propionate 0.05 % 02/27/2020 12:00:00 AM EST active Clobetasol Propionate 0.05 % eCW1 ([facility]) Clobetasol Propionate 0.5 MG/ML Topical Cream Clobetas ol Propionate 0.05 % Clobetasol Propionate 0.05 % 02/27/2020 12:00:00 AM EST active Clobetasol Propionate 0.05 % eCW1 ([facility]) Clobetasol Propionate 0.5 MG/ML Topical Cream Clobetas ol Propionate 0.05 % Clobetasol Propionate 0.05 % 02/27/2020 12:00:00 AM EST active Clobetasol Propionate 0.05 % eCW1 ([facility]) Clobetasol Propionate 0.5 MG/ML Topical Cream Clobetas ol Propionate 0.05 % Clobetasol Propionate 0.05 % 02/27/2020 12:00:00 AM EST active Clobetasol Propionate 0.05 % eCW1 ([facility]) Clobetasol Propionate 0.5 MG/ML Topical Cream Clobetas ol Propionate 0.05 % Clobetasol Propionate 0.05 % 02/27/2020 12:00:00 AM EST active Clobetasol Propionate 0.05 % eCW1 ([facility]) Clobetasol Propionate 0.5 MG/ML Topical Cream Clobetas ol Propionate 0.05 % Clobetasol Propionate 0.05 % 02/27/2020 12:00:00 AM EST active Clobetasol Propionate 0.05 % eCW1 ([facility]) Clobetasol Propionate 0.5 MG/ML Topical Cream Clobetas ol Propionate 0.05 % Clobetasol Propionate 0.05 % 02/27/2020 12:00:00 AM EST active Clobetasol Propionate 0.05 % eCW1 ([facility]) Levalbuterol 0.417 MG/ML Inhalant Solution Levalbutero l HCl 1.25 MG/3ML Levalbuterol HCl 1.25 MG/3ML 12/02/2019 12:00:00 AM EDT 3.0 {ml} active Levalbuterol HCl 1.25 MG/3ML eCW1 ([facility]) Levalbuterol 0.417 MG/ML Inhalant Solution Levalbutero l HCl 1.25 MG/3ML Levalbuterol HCl 1.25 MG/3ML 12/02/2019 12:00:00 AM EDT 3.0 {ml} active Levalbuterol HCl 1.25 MG/3ML eCW1 ([facility]) Levalbuterol 0.417 MG/ML Inhalant Solution Levalbutero l HCl 1.25 MG/3ML Levalbuterol HCl 1.25 MG/3ML 12/02/2019 12:00:00 AM EDT 3.0 {ml} active Levalbuterol HCl 1.25 MG/3ML eCW1 ([facility]) Levalbuterol 0.417 MG/ML Inhalant Solution Levalbutero l HCl 1.25 MG/3ML Levalbuterol HCl 1.25 MG/3ML 12/02/2019 12:00:00 AM EDT 3.0 {ml} active Levalbuterol HCl 1.25 MG/3ML eCW1 ([facility]) Levalbuterol 0.417 MG/ML Inhalant Solution Levalbutero l HCl 1.25 MG/3ML Levalbuterol HCl 1.25 MG/3ML 12/02/2019 12:00:00 AM EDT 3.0 {ml} active Levalbuterol HCl 1.25 MG/3ML eCW1 ([facility]) Levalbuterol 0.417 MG/ML Inhalant Solution Levalbutero l HCl 1.25 MG/3ML Levalbuterol HCl 1.25 MG/3ML 12/02/2019 12:00:00 AM EDT 3.0 {ml} active Levalbuterol HCl 1.25 MG/3ML eCW1 ([facility]) Levalbuterol 0.417 MG/ML Inhalant Solution Levalbutero l HCl 1.25 MG/3ML Levalbuterol HCl 1.25 MG/3ML 12/02/2019 12:00:00 AM EDT 3.0 {ml} active Levalbuterol HCl 1.25 MG/3ML eCW1 ([facility]) Levalbuterol 0.417 MG/ML Inhalant Solution Levalbutero l HCl 1.25 MG/3ML Levalbuterol HCl 1.25 MG/3ML 12/02/2019 12:00:00 AM EDT 3.0 {ml} active Levalbuterol HCl 1.25 MG/3ML eCW1 ([facility]) Levalbuterol 0.417 MG/ML Inhalant Solution Levalbutero l HCl 1.25 MG/3ML Levalbuterol HCl 1.25 MG/3ML 12/02/2019 12:00:00 AM EDT 3.0 {ml} active Levalbuterol HCl 1.25 MG/3ML eCW1 ([facility]) Levalbuterol 0.417 MG/ML Inhalant Solution Levalbutero l HCl 1.25 MG/3ML Levalbuterol HCl 1.25 MG/3ML 12/02/2019 12:00:00 AM EDT 3.0 {ml} active Levalbuterol HCl 1.25 MG/3ML eCW1 ([facility]) Levalbuterol 0.417 MG/ML Inhalant Solution Levalbutero l HCl 1.25 MG/3ML Levalbuterol HCl 1.25 MG/3ML 12/02/2019 12:00:00 AM EDT 3.0 {ml} active Levalbuterol HCl 1.25 MG/3ML eCW1 ([facility]) Levalbuterol 0.417 MG/ML Inhalant Solution Levalbutero l HCl 1.25 MG/3ML Levalbuterol HCl 1.25 MG/3ML 12/02/2019 12:00:00 AM EDT 3.0 {ml} active Levalbuterol HCl 1.25 MG/3ML eCW1 ([facility]) Levalbuterol 0.417 MG/ML Inhalant Solution Levalbutero l HCl 1.25 MG/3ML Levalbuterol HCl 1.25 MG/3ML 12/02/2019 12:00:00 AM EDT 3.0 {ml} active Levalbuterol HCl 1.25 MG/3ML eCW1 ([facility]) Levalbuterol 0.417 MG/ML Inhalant Solution Levalbutero l HCl 1.25 MG/3ML Levalbuterol HCl 1.25 MG/3ML 12/02/2019 12:00:00 AM EDT 3.0 {ml} active Levalbuterol HCl 1.25 MG/3ML eCW1 ([facility]) Levalbuterol 0.417 MG/ML Inhalant Solution Levalbutero l HCl 1.25 MG/3ML Levalbuterol HCl 1.25 MG/3ML 12/02/2019 12:00:00 AM EDT 3.0 {ml} active Levalbuterol HCl 1.25 MG/3ML eCW1 ([facility]) Levalbuterol 0.417 MG/ML Inhalant Solution Levalbutero l HCl 1.25 MG/3ML Levalbuterol HCl 1.25 MG/3ML 12/02/2019 12:00:00 AM EDT 3.0 {ml} active Levalbuterol HCl 1.25 MG/3ML eCW1 ([facility]) Levalbuterol 0.417 MG/ML Inhalant Solution Levalbutero l HCl 1.25 MG/3ML Levalbuterol HCl 1.25 MG/3ML 12/02/2019 12:00:00 AM EDT 3.0 {ml} active Levalbuterol HCl 1.25 MG/3ML eCW1 ([facility]) Levalbuterol 0.417 MG/ML Inhalant Solution Levalbutero l HCl 1.25 MG/3ML Levalbuterol HCl 1.25 MG/3ML 12/02/2019 12:00:00 AM EDT 3.0 {ml} active Levalbuterol HCl 1.25 MG/3ML eCW1 ([facility]) Levalbuterol 0.417 MG/ML Inhalant Solution Levalbutero l HCl 1.25 MG/3ML Levalbuterol HCl 1.25 MG/3ML 12/02/2019 12:00:00 AM EDT 3.0 {ml} active Levalbuterol HCl 1.25 MG/3ML eCW1 ([facility]) Levalbuterol 0.417 MG/ML Inhalant Solution Levalbutero l HCl 1.25 MG/3ML Levalbuterol HCl 1.25 MG/3ML 12/02/2019 12:00:00 AM EDT 3.0 {ml} active Levalbuterol HCl 1.25 MG/3ML eCW1 ([facility]) Levalbuterol 0.417 MG/ML Inhalant Solution Levalbutero l HCl 1.25 MG/3ML Levalbuterol HCl 1.25 MG/3ML 12/02/2019 12:00:00 AM EDT 3.0 {ml} active Levalbuterol HCl 1.25 MG/3ML eCW1 ([facility]) Levalbuterol 0.417 MG/ML Inhalant Solution Levalbutero l HCl 1.25 MG/3ML Levalbuterol HCl 1.25 MG/3ML 12/02/2019 12:00:00 AM EDT 3.0 {ml} active Levalbuterol HCl 1.25 MG/3ML eCW1 ([facility]) Levalbuterol 0.417 MG/ML Inhalant Solution Levalbutero l HCl 1.25 MG/3ML Levalbuterol HCl 1.25 MG/3ML 12/02/2019 12:00:00 AM EDT 3.0 {ml} active Levalbuterol HCl 1.25 MG/3ML eCW1 ([facility]) Levalbuterol 0.417 MG/ML Inhalant Solution Levalbutero l HCl 1.25 MG/3ML Levalbuterol HCl 1.25 MG/3ML 12/02/2019 12:00:00 AM EDT 3.0 {ml} active Levalbuterol HCl 1.25 MG/3ML eCW1 ([facility]) Levalbuterol 0.417 MG/ML Inhalant Solution Levalbutero l HCl 1.25 MG/3ML Levalbuterol HCl 1.25 MG/3ML 12/02/2019 12:00:00 AM EDT 3.0 {ml} active Levalbuterol HCl 1.25 MG/3ML eCW1 ([facility]) Levalbuterol 0.417 MG/ML Inhalant Solution Levalbutero l HCl 1.25 MG/3ML Levalbuterol HCl 1.25 MG/3ML 12/02/2019 12:00:00 AM EDT 3.0 {ml} active Levalbuterol HCl 1.25 MG/3ML eCW1 ([facility]) Levalbuterol 0.417 MG/ML Inhalant Solution Levalbutero l HCl 1.25 MG/3ML Levalbuterol HCl 1.25 MG/3ML 12/02/2019 12:00:00 AM EDT 3.0 {ml} active Levalbuterol HCl 1.25 MG/3ML eCW1 ([facility]) Levalbuterol 0.417 MG/ML Inhalant Solution Levalbutero l HCl 1.25 MG/3ML Levalbuterol HCl 1.25 MG/3ML 12/02/2019 12:00:00 AM EDT 3.0 {ml} active Levalbuterol HCl 1.25 MG/3ML eCW1 ([facility]) Levalbuterol 0.417 MG/ML Inhalant Solution Levalbutero l HCl 1.25 MG/3ML Levalbuterol HCl 1.25 MG/3ML 12/02/2019 12:00:00 AM EDT 3.0 {ml} active Levalbuterol HCl 1.25 MG/3ML eCW1 ([facility]) Levalbuterol 0.417 MG/ML Inhalant Solution Levalbutero l HCl 1.25 MG/3ML Levalbuterol HCl 1.25 MG/3ML 12/02/2019 12:00:00 AM EDT 3.0 {ml} active Levalbuterol HCl 1.25 MG/3ML eCW1 ([facility]) Levalbuterol 0.417 MG/ML Inhalant Solution Levalbutero l HCl 1.25 MG/3ML Levalbuterol HCl 1.25 MG/3ML 12/02/2019 12:00:00 AM EDT 3.0 {ml} active Levalbuterol HCl 1.25 MG/3ML eCW1 ([facility]) Insurance Providers Payer name Policy type / Coverage type Policy ID Covered democrat ID Covered democrat's relationship to ocampo Policy [place] Plan Information [facility] [id number] [facility] [id number] Problems, Conditions, and Diagnoses Code Display Name Description Problem Type Effective Dates Data Source(s) L20.82 [id number] Flexural eczema Problem 11/04/2020 12:00:00 AM EDT eCW1 ([facility]) D82.1 [id number] DiGeorge syndrome Problem 08/02/2020 12:00:0 0 AM EDT eCW1 ([facility]) J45.901 [id number] Exacerbation of asth ma, unspecified asthma severity, unspecified whether persistent Problem 05/17/2020 12:00:00 AM EDT eC W1 ([facility]) Z95.2 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 Problem 04/23/2020 12:00:00 AM EST eCW1 ([facility]) Surgeries/Procedures Procedure Description Date Indications Data Source(s) Immunization: Flublok Quadrivalent (18 years & older) 0.5mL IM (Influenza) 12/23/2019 12:00:00 AM EST eCW1 ([facility]) Results ID Date Data Source [id number] 05/17/2020 02:00:00 PM EDT [facility] Name Value Range Interpretation Code Description Data Arpita rce(s) Supporting Document(s) SARS-CoV-2 (COVID-19) RNA [Presence] in Respiratory specimen by DEBORAH with probe detection Not Detected [facility] This lab was ordered by [facility] and reported by [employer] ID Date Data Source [id number] 05/17/2020 12:26:00 PM EDT [facility] Name Value Range Interpretation Code Description Data Arpita rce(s) Supporting Document(s) SARS COVID ANTIGEN NEGATIVE [facility] This lab was ordered by [facility] nd reported by [facility]. ID Date Data Source LUCINDA COVID AG (Point of Care) 05/17/2020 12:00:00 AM EDT eC W1 ([facility]) Name Value Range Interpretation Code Description Data Arpita rce(s) Supporting Document(s) NEGATIVE NEGATIVE LUCINDA COVID ANTIGEN eCW1 ([facility]) ID Date Data Source [id number] 12/08/2019 02:30:00 PM EDT [facility] Name Value Range Interpretation Code Description Data Arpita rce(s) Supporting Document(s) SARS coronavirus 2 RNA [facility] This lab was ordered by [facility] and reported by [facility]. Procedure Social History Code Duration Value Status Description Data Source(s ) Smoking 11/04/2020 12:00:00 AM EDT Never Smoker completed Never S moker eCW1 ([facility]) Smoking 11/04/2020 12:00:00 AM EDT Never Smoker completed Never S moker eCW1 ([facility]) Smoking 05/21/2020 12:00:00 AM EDT Never Smoker completed Never S moker eCW1 ([facility]) Smoking 05/21/2020 12:00:00 AM EDT Never Smoker completed Never S moker eCW1 ([facility]) Smoking 05/21/2020 12:00:00 AM EDT Never Smoker completed Never S moker eCW1 ([facility]) Smoking 05/21/2020 12:00:00 AM EDT Never Smoker completed Never S moker eCW1 ([facility]) Smoking 05/21/2020 12:00:00 AM EDT Never Smoker completed Never S moker eCW1 ([facility]) Smoking 05/21/2020 12:00:00 AM EDT Never Smoker completed Never S moker eCW1 ([facility]) Smoking 05/21/2020 12:00:00 AM EDT Never Smoker completed Never S moker eCW1 ([facility]) Smoking 05/21/2020 12:00:00 AM EDT Never Smoker completed Never S moker eCW1 ([facility]) Smoking 05/21/2020 12:00:00 AM EDT Never Smoker completed Never S moker eCW1 ([facility]) Smoking 05/21/2020 12:00:00 AM EDT Never Smoker completed Never S moker eCW1 ([facility]) Smoking 05/21/2020 12:00:00 AM EDT Never Smoker completed Never S moker eCW1 ([facility]) Smoking 05/21/2020 12:00:00 AM EDT Never Smoker completed Never S moker eCW1 ([facility]) Smoking 05/21/2020 12:00:00 AM EDT Never Smoker completed Never S moker eCW1 ([facility]) Smoking 05/17/2020 12:00:00 AM EDT Never Smoker completed Never S moker eCW1 ([facility]) Smoking 05/17/2020 12:00:00 AM EDT Never Smoker completed Never S moker eCW1 ([facility]) Smoking 05/17/2020 12:00:00 AM EDT Never Smoker completed Never S moker eCW1 ([facility]) Smoking 05/17/2020 12:00:00 AM EDT Never Smoker completed Never S moker eCW1 ([facility]) Smoking 05/17/2020 12:00:00 AM EDT Never Smoker completed Never S moker eCW1 ([facility]) Smoking 05/17/2020 12:00:00 AM EDT Never Smoker completed Never S moker eCW1 ([facility]) Smoking 05/17/2020 12:00:00 AM EDT Never Smoker completed Never S moker eCW1 ([facility]) Smoking 05/17/2020 12:00:00 AM EDT Never Smoker completed Never S moker eCW1 ([facility]) Smoking 04/23/2020 12:00:00 AM EST Never Smoker completed Never S moker eCW1 ([facility]) Vital Signs ID Date Data Source UNK Name Value Range Interpretation Code Description Data Source(s) Body weight 170.8 [lb_av] 170.8 [lb_av] eCW1 ([facility]) Body height 61 [in_i] 61 [in_i] eCW1 ([facility]) Body mass index (BMI) [Ratio] 32.27 kg/m2 32.27 kg/m2 eCW1 ([facility]) Heart rate 75 /min 75 /min eCW1 ([facility]) Respiratory rate 17 /min 17 /min eCW1 ([facility]) Body temperature 97.6 [degF] 97.6 [degF] eCW1 ( [facility]) Systolic blood pressure 129 mm[Hg] 129 mm[Hg] e CW1 ([facility]) Diastolic blood pressure 65 mm[Hg] 65 mm[Hg] eCW1 ([facility]) Body weight 170.6 [lb_av] 170.6 [lb_av] eCW1 ([facility]) Body height 61 [in_i] 61 [in_i] eCW1 ([facility]) Body mass index (BMI) [Ratio] 32.23 kg/m2 32.23 kg/m2 eCW1 ([facility]) Heart rate 71 /min 71 /min eCW1 ([facility]) Respiratory rate 18 /min 18 /min eCW1 ([facility]) Body temperature 97.1 [degF] 97.1 [degF] eCW1 ( [facility]) Systolic blood pressure 113 mm[Hg] 113 mm[Hg] e CW1 ([facility]) Diastolic blood pressure 72 mm[Hg] 72 mm[Hg] eCW1 ([facility]) Body weight 173 [lb_av] 173 [lb_av] eCW1 ([facility]) Body height 61 [in_i] 61 [in_i] eCW1 ([facility]) Body mass index (BMI) [Ratio] 32.68 kg/m2 32.68 kg/m2 eCW1 ([facility]) Heart rate 80 /min 80 /min eCW1 ([facility]) Respiratory rate 18 /min 18 /min eCW1 ([facility]) Body temperature 97.7 [degF] 97.7 [degF] eCW1 ( [facility]) Systolic blood pressure 110 mm[Hg] 110 mm[Hg] e CW1 ([facility]) Diastolic blood pressure 72 mm[Hg] 72 mm[Hg] eCW1 ([facility]) Patient Treatment Plan of Care Planned Activity Planned Date Details Description Data Source (s) Omeprazole 40 MG Delayed Release Oral Capsule 05/21/2020 12:00:00 A M EDT eCW1 ([facility]) Omeprazole 40 MG Delayed Release Oral Capsule 05/21/2020 12:00:00 A M EDT eCW1 ([facility]) Omeprazole 40 MG Delayed Release Oral Capsule 05/21/2020 12:00:00 A M EDT eCW1 ([facility]) Omeprazole 40 MG Delayed Release Oral Capsule 05/21/2020 12:00:00 A M EDT eCW1 ([facility]) Omeprazole 40 MG Delayed Release Oral Capsule 05/21/2020 12:00:00 A M EDT eCW1 ([facility]) Omeprazole 40 MG Delayed Release Oral Capsule 05/21/2020 12:00:00 A M EDT eCW1 ([facility]) Omeprazole 20 MG Delayed Release Oral Capsule 05/21/2020 12:00:00 A M EDT eCW1 ([facility]) Omeprazole 20 MG Delayed Release Oral Capsule 05/21/2020 12:00:00 A M EDT eCW1 ([facility]) Omeprazole 20 MG Delayed Release Oral Capsule 05/21/2020 12:00:00 A M EDT eCW1 ([facility]) Omeprazole 20 MG Delayed Release Oral Capsule 05/21/2020 12:00:00 A M EDT eCW1 ([facility]) Omeprazole 20 MG Delayed Release Oral Capsule 05/21/2020 12:00:00 A M EDT eCW1 ([facility]) Omeprazole 20 MG Delayed Release Oral Capsule 05/21/2020 12:00:00 A M EDT eCW1 ([facility]) Omeprazole 20 MG Delayed Release Oral Capsule 05/21/2020 12:00:00 A M EDT eCW1 ([facility]) Pulse Oximeter - 05/20/2020 12:00:00 AM EDT eCW1 ([facility]) Pulse Oximeter - 05/20/2020 12:00:00 AM EDT eCW1 ([facility]) 200 ACTUAT Levalbuterol 0.045 MG/ACTUAT Metered Dose I nhaler [Xopenex] 05/18/2020 12:00:00 AM EDT eCW1 ([facility]) Sodium Chloride 0.154 MEQ/ML Inhalant Solution 05/18/2020 12:00:00 AM EDT eCW1 ([facility]) 200 ACTUAT Levalbuterol 0.045 MG/ACTUAT Metered Dose I nhaler [Xopenex] 05/18/2020 12:00:00 AM EDT eCW1 ([facility]) Sodium Chloride 0.154 MEQ/ML Inhalant Solution 05/18/2020 12:00:00 AM EDT eCW1 ([facility]) 200 ACTUAT Levalbuterol 0.045 MG/ACTUAT Metered Dose I nhaler [Xopenex] 05/18/2020 12:00:00 AM EDT eCW1 ([facility]) Sodium Chloride 0.154 MEQ/ML Inhalant Solution 05/18/2020 12:00:00 AM EDT eCW1 ([facility]) 200 ACTUAT Levalbuterol 0.045 MG/ACTUAT Metered Dose I nhaler [Xopenex] 05/18/2020 12:00:00 AM EDT eCW1 ([facility]) Sodium Chloride 0.154 MEQ/ML Inhalant Solution 05/18/2020 12:00:00 AM EDT eCW1 ([facility]) 200 ACTUAT Levalbuterol 0.045 MG/ACTUAT Metered Dose I nhaler [Xopenex] 05/18/2020 12:00:00 AM EDT eCW1 ([facility]) Sodium Chloride 0.154 MEQ/ML Inhalant Solution 05/18/2020 12:00:00 AM EDT eCW1 ([facility]) Prednisone 20 MG Oral Tablet 05/17/2020 12:00:00 AM EDT eCW1 ([facility]) Prednisone 20 MG Oral Tablet 05/17/2020 12:00:00 AM EDT eCW1 ([facility]) Prednisone 20 MG Oral Tablet 05/17/2020 12:00:00 AM EDT eCW1 ([facility]) Prednisone 20 MG Oral Tablet 05/17/2020 12:00:00 AM EDT eCW1 ([facility]) Prednisone 20 MG Oral Tablet 05/17/2020 12:00:00 AM EDT eCW1 ([facility]) Prednisone 20 MG Oral Tablet 05/17/2020 12:00:00 AM EDT eCW1 ([facility]) Prednisone 20 MG Oral Tablet 05/17/2020 12:00:00 AM EDT eCW1 ([facility]) Prednisone 20 MG Oral Tablet 05/17/2020 12:00:00 AM EDT eCW1 ([facility]) Clobetasol Propionate 0.5 MG/ML Topical Cream 02/27/2020 12:00:00 A M EST eCW1 ([facility]) Clobetasol Propionate 0.5 MG/ML Topical Cream 02/27/2020 12:00:00 A M EST eCW1 ([facility]) Clobetasol Propionate 0.5 MG/ML Topical Cream 02/27/2020 12:00:00 A M EST eCW1 ([facility]) Clobetasol Propionate 0.5 MG/ML Topical Cream 02/27/2020 12:00:00 A M EST eCW1 ([facility]) Clobetasol Propionate 0.5 MG/ML Topical Cream 02/27/2020 12:00:00 A M EST eCW1 ([facility]) Clobetasol Propionate 0.5 MG/ML Topical Cream 02/27/2020 12:00:00 A M EST eCW1 ([facility]) Clobetasol Propionate 0.5 MG/ML Topical Cream 02/27/2020 12:00:00 A M EST eCW1 ([facility]) Clobetasol Propionate 0.5 MG/ML Topical Cream 02/27/2020 12:00:00 A M EST eCW1 ([facility]) Clobetasol Propionate 0.5 MG/ML Topical Cream 02/27/2020 12:00:00 A M EST eCW1 ([facility]) Clobetasol Propionate 0.5 MG/ML Topical Cream 02/27/2020 12:00:00 A M EST eCW1 ([facility]) Clobetasol Propionate 0.5 MG/ML Topical Cream 02/27/2020 12:00:00 A M EST eCW1 ([facility]) Clobetasol Propionate 0.5 MG/ML Topical Cream 02/27/2020 12:00:00 A M EST eCW1 ([facility]) Clobetasol Propionate 0.5 MG/ML Topical Cream 02/27/2020 12:00:00 A M EST eCW1 ([facility]) Clobetasol Propionate 0.5 MG/ML Topical Cream 02/27/2020 12:00:00 A M EST eCW1 ([facility]) Clobetasol Propionate 0.5 MG/ML Topical Cream 02/27/2020 12:00:00 A M EST eCW1 ([facility]) Levalbuterol 0.417 MG/ML Inhalant Solution 12/02/2019 12:00:00 AM E DT eCW1 ([facility]) Levalbuterol 0.417 MG/ML Inhalant Solution 12/02/2019 12:00:00 AM E DT eCW1 ([facility]) Levalbuterol 0.417 MG/ML Inhalant Solution 12/02/2019 12:00:00 AM E DT eCW1 ([facility]) Levalbuterol 0.417 MG/ML Inhalant Solution 12/02/2019 12:00:00 AM E DT eCW1 ([facility]) Levalbuterol 0.417 MG/ML Inhalant Solution 12/02/2019 12:00:00 AM E DT eCW1 ([facility]) Levalbuterol 0.417 MG/ML Inhalant Solution 12/02/2019 12:00:00 AM E DT [email or web address] ([facility]) Levalbuterol 0.417 MG/ML Inhalant Solution 12/02/2019 12:00:00 AM E DT [email or web address] ([facility])
[2020-12-30] MEDS ORDERED: ISOVUE-370 76% 100ML VIAL As Ordered ONE ×2 (12:32→14:27)
[2020-12-30 14:38] LABS: CK-MB VALUE MASS < 1.0 NG/ML (<3.6); CPK CREATINE PHOSPHOKINASE 97 U/L (26-192); MB/CK RELATIVE INDEX 1.03 (< OR =4); TROPONIN I < 0.02 NG/ML (< 0.10)
--- NOTE | 2020-12-30 15:00 | REP ---
INDICATION: RSV w/ hypoxia COMPARISON: None TECHNIQUE: Axial contrast enhanced images from the thoracic inlet to the upper abdomen with coronal and sagittal reformations using 75 ml Isovue 370 intravenous contrast material. This CT examination was performed using the following dose reduction techniques: Automated exposure control, adjustment of mA and/or kv according to the patient's size, and use of iterative reconstruction technique. FINDINGS: The current examination demonstrates chronic oligemia and scattered elements of scarring bilaterally. There is an area of platelike mass/consolidation at the left base measuring 3 cm diameter and 1.2 cm in width which appears new as compared with recent chest x-ray dated 12/27/2020. no further consolidation. No effusion. No pneumothorax. Mediastinum demonstrates prior pulmonary arterial repair. No cardiomegaly or pericardial effusion. No obvious significant adenopathy identified. Castaneda rods noted through the thoracolumbar spine. IMPRESSION: 1. New area of presumed consolidation at the left base warrants clinical correlation and follow-up to resolution. <Electronically signed by Matteo Rosario > 12/30/20 [id number]
[2020-12-30] MEDS ORDERED: LevoFLOXacin IV 750 MG in IV 1 EA IV ONE (15:15)
[2020-12-30 15:16] LABS: VENOUS BASE EXCESS -0.7 (-2.0-2.0); VENOUS HCO3 25.3 MEQ/L (23.0-27.0); VENOUS O2 SATURATION 65.2 % (60.0-80.0); VENOUS PARTIAL PRESSURE CO2 47.5 mmHg (38.0-50.0); VENOUS PARTIAL PRESSURE O2 34.6 mmHg (30.0-50.0); VENOUS PH 7.344 UNITS (7.330-7.430); VENOUS STANDARD HCO3 23.2 MEQ/L; VENOUS TOTAL CO2 26.7 MEQ/L (24.0-28.0)
[2020-12-30 16:48] VITALS: O2SAT 96
[2020-12-30 18:20] VITALS: BP 141/82
[2020-12-30] MEDS ORDERED: LEVO750T14 PO (18:20)
[2020-12-30] MEDS ORDERED: COMBAER6 INH (18:20)
--- NOTE | 2021-01-01 07:57 | ECGEPIP ---
[facility] - ED Test Date: 2020-12-30 Pat Name: CONCEPCION SALINAS Department: Room: - Gender: Female Digital Tech: CARLOS : 1995 Requested By: BRIDGETTE HAYES Order Number: [id number] Reading MD: Marah Mo Measurements Intervals [place] Rate: 90 P: 50 MT: 132 QRS: 129 QRSD: 168 T: 65 QT: 420 QTc: 513 Interpretive Statements Normal sinus rhythm prolonged qtc, clinical correlation Right bundle branch block , plus right ventricular hypertrophy Possible Inferior infarct , age undetermined, clinical correlation for acuity Electronically Signed on 01-01-2021 7:57:21 EST by Marah Mo
== END 2020-12-30 18:54 | disposition home or self-care (01) ==
LOC: M ED 08:50
DX: J18.9 Pneumonia, unspecified organism (principal); B97.4 Respiratory syncytial virus as the cause of diseases classified elsewhere; Q25.5 Atresia of pulmonary artery; D82.1 Di George's syndrome; Q21.3 Tetralogy of Fallot; Z79.82 Long term (current) use of aspirin; Z79.899 Other long term (current) drug therapy
CPT/HCPCS: 71260; 80047; 82550; 82553; 82803; 84484; 87798; 93005; 93041; 94640; 94760; 96365; 96366; 99285; J1956; Q9967

== ENCOUNTER → 2021-02-11 | Outpatient (REF) ==
[~2021-02-11] MED LIST changes: +COMBAER6 INH; +LEVO750T14 PO
== END ==
LOC: M LABSMTC 10:11
PROVIDERS: ATTEND Pediatrics
DX: Z20.828 Contact with and (suspected) exposure to other viral communicable diseases (principal)

== ENCOUNTER 2021-04-24 09:51 | Emergency (ER) | payer OTHER ==
[~2021-04-24] VITALS: Ht 154.9 cm; Wt 75.7 kg
[~2021-04-24 09:51] MED LIST changes: -D31000TA2 PO; +FEXO-117 PO; -FEXO180T58 PO; -OMEP-221 PO; +OMEP40CA5 PO; +VITA100093 PO
[2021-04-24] MEDS ORDERED: predniSONE 20 MG TAB PO ONE (11:00)
[2021-04-24] MEDS ORDERED: PRED20TA PO (11:34)
[2021-04-24 11:42] VITALS: BP 100/60
== END 2021-04-24 11:43 | disposition home or self-care (01) ==
LOC: M ED 09:51
DX: J06.9 Acute upper respiratory infection, unspecified (principal); R06.2 Wheezing; J45.909 Unspecified asthma, uncomplicated; Z79.82 Long term (current) use of aspirin; Z79.899 Other long term (current) drug therapy
CPT/HCPCS: 71046; 87798; 99283; J7512

== ENCOUNTER 2021-06-15 12:14 | Emergency (ER) | payer OTHER ==
[~2021-06-15] VITALS: Ht 154.9 cm; Wt 74.1 kg
[~2021-06-15 12:14] MED LIST changes: +PRED20TA PO
[2021-06-15 15:36] VITALS: BP 113/64
== END 2021-06-15 15:38 | disposition home or self-care (01) ==
LOC: M ED 12:14
DX: S60.212A Contusion of left wrist, initial encounter (principal); S90.31XA Contusion of right foot, initial encounter; S93.401A Sprain of unspecified ligament of right ankle, initial encounter; W10.9XXA Fall (on) (from) unspecified stairs and steps, initial encounter; Y92.009 Unspecified place in unspecified non-institutional (private) residence as the place of occurrence of the external cause; Y93.9 Activity, unspecified; Y99.9 Unspecified external cause status